=== PATIENT | male | born 1965 | race American Indian/Alaskan Native ===

== ENCOUNTER 2016-07-02 10:22 | Emergency (ER) | payer MEDICAID ==
[2016-07-02] MEDS ORDERED: MOTRIN PO ONE (13:59)
[2016-07-02 14:22] LABS: Bacteria,Urine 1+ /HPF (Negative); Bilirubin,Urine NEG (Negative); Blood,Urine NEG (Negative); Ketones,Urine TR mg/dL (Negative); Leukocyte Esterase,Urine NEG (Negative); Mucus,Urine 2+ /HPF; Nitrite,Urine NEG (Negative)
[2016-07-02 15:41] VITALS: BP 116/81
[2016-07-02] MEDS ORDERED: NORCO 7.5/325 PO ONE (15:45)
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
== END 2016-07-02 16:18 | disposition home or self-care (01) ==
LOC: ED 10:22
DX: M54.6 Pain in thoracic spine (principal); G89.29 Other chronic pain; C72.0 Malignant neoplasm of spinal cord; I25.10 Atherosclerotic heart disease of native coronary artery without angina pectoris; F17.200 Nicotine dependence, unspecified, uncomplicated; I10 Essential (primary) hypertension; Z98.890 Other specified postprocedural states; Z91.018 Allergy to other foods
CPT/HCPCS: 81001; 99283

== ENCOUNTER 2016-07-30 06:40 | Day surgery (SDC) | payer MEDICAID ==
[2016-07-30 07:36] LABS: Basophils % (Auto) 0.6 % (0.0-1.8); Eosinophils % (Auto) 5.7 % (0.0-4.3); Hematocrit 39.8 % (35.5-45.6); Hemoglobin 13.1 gm/dl (11.8-15.2); Mean Corpuscular HGB Conc 33 % (32-34); Mean Corpuscular Hemoglobin 31 pg (28-32); Mean Corpuscular Volume 95 fl (84-94); Platelet Count 210 K/mm3 (140-440); Red Cell Distribution Width 16.3 % (13.2-15.2); White Blood Count 3.3 K/mm3 (4.5-11.0)
[2016-07-30 07:44] LABS: INR 1.03 (0.87-1.13)
[2016-07-30 07:45] LABS: Partial Thromboplastin Time 28.7 Sec. (24.2-36.6)
[2016-07-30] MEDS ORDERED: VERSED IV ONE ×2 (08:20→08:24)
[2016-07-30] MEDS ORDERED: SUBLIMAZE ONE (08:20)
[2016-07-30] MEDS ORDERED: SUBLIMAZE IV ONE (08:24)
[2016-07-30] MEDS ORDERED: BENADRYL ONE (08:57)
[2016-07-30] MEDS ORDERED: BENADRYL IV ONE (09:03)
--- NOTE | 2016-07-30 09:36 | Cat Scan Report ---
CT BIOPSY BONE MARROW HISTORY: Multiple myeloma. DESCRIPTION OF PROCEDURE: Informed consent was obtained. Sterile technique was utilized. Moderate sedation was accomplished with Versed, fentanyl and Benadryl. The patient was sedated for 15 minutes. Intraobserver time was 20 minutes. Independent cardiorespiratory monitoring by RN. Using CT guidance, a 9-gauge introducer needle was advanced into the right posterior iliac bone. 4 bone marrow aspirations were obtained. One 10-gauge core bone biopsy was also obtained. No complications. IMPRESSION: Successful CT-guided bone marrow biopsy.
[2016-07-30 10:10] VITALS: BP 130/87
== END 2016-07-30 10:25 | disposition home or self-care (01) ==
LOC: OPU 06:40 → EDSTATUS 08:30 → OPU 10:25
PROVIDERS: ATTEND Internal Medicine Hematology
DX: C90.00 Multiple myeloma not having achieved remission (principal); D45 Polycythemia vera
CPT/HCPCS: 36415; 38221; 77012; 85007; 85025; 85097; 85610; 85730; 88305; 88311; G0364; J1200; J2250; J3010; 88161; 88313

== ENCOUNTER 2016-10-01 10:15 | Outpatient (CLI) | payer MEDICAID ==
--- NOTE | 2016-10-01 12:19 | XRay Report ---
BILATERAL EYE RADIOGRAPHS FOR FOREIGN BODY INDICATION: Screening for metal prior to MRI. COMPARISON: None similar. FINDINGS: AP, lateral and oblique views demonstrate left parietal closure devices. No other suspicious radiodensity identified. Grossly age-appropriate, intact remainder bones. CONCLUSION: Left parietal closure devices, as described. Please correlate. Thank you for the opportunity to participate in this patient's care.
== END 2016-10-01 10:16 | disposition home or self-care (01) ==
LOC: MRI 10:15
PROVIDERS: ATTEND Internal Medicine Hematology
DX: T15.92XA Foreign body on external eye, part unspecified, left eye, initial encounter (principal); T15.91XA Foreign body on external eye, part unspecified, right eye, initial encounter; M79.605 Pain in left leg; M79.89 Other specified soft tissue disorders; C90.20 Extramedullary plasmacytoma not having achieved remission; C90.00 Multiple myeloma not having achieved remission; D45 Polycythemia vera; X58.XXXA Exposure to other specified factors, initial encounter; Y93.89 Activity, other specified; Y92.89 Other specified places as the place of occurrence of the external cause; Y99.8 Other external cause status

== ENCOUNTER 2016-10-11 07:08 | Inpatient (IN) | payer MEDICAID ==
[~2016-10-11 07:08] MED LIST: ANCEF/STERILE WATER 2 GM/20 ML 2 GM/20 ML SYRINGE IV SCH; FLAGYL 500 MG/100 ML 500 MG/100 ML BAG IV NR; PEPCID PO NR; VERSED IV NR; ceFAZolin 2 GM in NACL 0.9% 100 ML IV ONE
[2016-10-11] MEDS ORDERED: MARCAINE-EPI 0.25%-1:200,000 INFILTRATI ONE ×2 (07:46→13:25)
--- NOTE | 2016-10-11 07:48 | Anesthesia Day of Surgery ---
Anesthesia Day of Surgery - Day of Surgery Patient Examined: Yes Patient H&P Reviewed: Yes Patient is NPO: Yes Beta Blockers: No (no home medications) Cardiac Clearance: Yes
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
[2016-10-11] MEDS ORDERED: SUBLIMAZE ONE (08:01)
[2016-10-11] MEDS ORDERED: DIPRIVAN 10 MG/ML IV ONE (08:02)
[2016-10-11] MEDS ORDERED: ZEMURON IV ONE ×3 (08:03→13:54)
[2016-10-11] MEDS: HEPARIN SUB-Q NR ×2 (08:04→23:49)
[2016-10-11] MEDS ORDERED: XYLOCAINE MPF 2% ONE (08:04)
[2016-10-11] MEDS: NACL 0.9% 1000 ML 1,000 ML IV SCH (08:04)
[2016-10-11] MEDS ORDERED: ZOFRAN IV PRN (09:00)
[2016-10-11] MEDS ORDERED: ROBINUL ONE ×3 (09:44→15:13)
[2016-10-11] MEDS ORDERED: DECADRON ONE (09:47)
[2016-10-11] MEDS ORDERED: ZOFRAN ONE (09:47)
[2016-10-11] MEDS ORDERED: DILAUDID ONE ×2 (09:47→12:03)
[2016-10-11] MEDS ORDERED: ARTIFICIAL TEARS OPHTH OINT ONE (09:48)
[2016-10-11] MEDS ORDERED: DILAUDID IV PRN ×2 (10:00)
[2016-10-11] MEDS ORDERED: BREVIBLOC IV ONE (11:00)
[2016-10-11] MEDS ORDERED: NEO SYNEPHRINE/NS Syringe(OR USE) IV ONE (11:00)
[2016-10-11] MEDS ORDERED: NACL 0.9% 1000 ML 1,000 ML ONE (11:03)
[2016-10-11] MEDS ORDERED: ANCEF ONE ×2 (13:19)
[2016-10-11] MEDS ORDERED: NACL 0.9% IR ONE ×2 (13:25)
--- NOTE | 2016-10-11 14:27 | Admit Criteria Form ---
Admission Criteria Documentation: AMBULATORY SURGERY EXCEPTION CRITERIA Ambulatory Surgery Exception Criteria ( Place 'X' for any and all applicable criteria): Surgery or procedure performed on ambulatory basis may require inpatient stay for[A] ANY ONE of the following(1)(2)(3)(4)(5)(6)(7)(8)(9): [X] I. A preoperative situation, condition, or finding that warrants inpatient stay as indicated by ANY ONE of the following: [] a) Inpatient care needed because of severity of a disease or condition rather than the surgery (eg, severe cardiac or respiratory disease, severe infection) (15) (16 ) (17) (18) [] b) Emergent procedure (eg, angioplasty for acute ischemia)(19) [] c) Complex surgical approach or situation as indicated by ANY ONE of the following(3): [] i) Open approach needed instead of usual endoscopic, transcatheter, or other less invasive procedure [] ii) Difficult approach because of previous operation [] iii) Airway monitoring required after open neck procedures(20)(21) [] iv) Large mass requiring unusually extensive dissection [] v) Additional complicating feature requiring inpatient care (eg, drain management)(22(23): [X] d) Major surgery in a pt with high anesthetic risk as indicated by ANY ONE of the following (2)(3)(5)(7)(8): [X] i) ASA risk class III or higher (severe systemic disease impairing function) [D] [] ii) Advanced age (eg, older than 85 years)(14)(24) [] iii) Symptomatic heart failure(25) [] iv) Symptomatic asthma or COPD(8)(21) [] v) Morbid obesity with hemodynamic or respiratory problems(20)( 21)(26)(27) [] vi) Obstructive sleep apnea(20)(21) [] vii) Former premature infants who are younger than 60 weeks [] viii) High risk for severe postoperative abnormalities (eg, severe postoperative hypocalcemia after parathyroidectomy for severe hyperparathyroidism)(27)( 28) [] ix) Unstable angina(25) [] e) Drug-related risk requiring inpatient stay as indicated by ANY ONE of the following(5)(10)(14)(32)(33) [] i) Procedure requires discontinuing drugs or other therapy (eg , antiarrhythmic medication, antiseizure medication), which necessitates inpatient observation or treatment.(18)(31) [] ii) Major surgery and high risk drug use as indicated by ANY ONE of the following: [] 1) Active abuse of cocaine or similar drug [] 2) Monoamine oxidase inhibitor use [] 3) Other drug identified as posing risk [] f) Inadequate outpatient care situation as indicated by ANY ONE of the following(5)(10)(14)(32)(33) [] i) Patient lives remote from medical facility and procedure has urgent complication potential, and temporary nearby residence cannot be arranged [] ii) Patient will have postprocedure incapacitation and inadequate assistance at home, or alternative level of care cannot be arranged. [] iii) Patient will have long general anesthesia or procedure side effect resolution time, and competent person to stay with patient on first postoperative night at home or alternative level of care cannot be arranged. []iv) Other inadequate outpatient situation that cannot be handled by other means [] II. A perioperative event, condition, or finding that warrants inpatient stay as indicated by ANY ONE of the following (1)(2)(3): [] a) Inadequate physiologic recovery: cardiovascular, respiratory, or hemodynamic status not normal or near preoperative baseline(18) [] b) Hemodynamic instability [] c) Patient not alert with near normal or baseline mental status [] d) Temperature not normal or as expected and not appropriate for outpatient treatment of condition [] e) Ambulatory or appropriate activity level status not yet achieved post procedure [E](34)(35)(36) [] f) Operative site not appropriate (eg, unexpected or excessive drainage or bleeding) [] g) Postoperative effects not resolved or adequately managed (eg, significant pain or vomiting not appropriate for outpatient or next level of care)(10)(12) [] h) Complicating features requiring inpatient care as indicated by ANY ONE of the following(37): [] i) Severe complications of procedure (eg, bowel injury, airway compromise, vascular injury,severe hemorrhage) [] ii) Extensive (eg, dissection far beyond usual scope of procedure ) or prolonged (eg, 120 minutes beyond usual) surgery needed requiring inpatient postoperative care [] iii) Conversion to an open or complex procedure that requires inpatient care (eg, open vs laparoscopic cholecystectomy, abdominal vs vaginal hysterectomy)(38) [] iv) Comorbid condition or test result identified during or post procedure that requires inpatient care (7) [] v) Malignant hyperthermia(30) [] vi) Other complicating feature requiring inpatient care(22)(23) Inpatient stay may be needed until ALL of the following are present (1)(2)(3)(4) (5)(6)(10)(14)(33)(40): []a) Physiologic recovery: cardiovascular, respiratory, and hemodynamic status normal or near preoperative baseline []b) Hemodynamic stability []c) Patient alert, with near normal or baseline mental status []d) Temperature appropriate: patient afebrile or temperature appropriate for outpt treatment of condition []e) Activity level appropriate: ambulatory or appropriate activity level post procedure []f) Operative site appropriate as indicated by ALL of the following: []i) Site dry or with expected drainage []ii) Any blood noted is as expected for procedure. []g) Postoperative effects resolved or managed as indicated by ALL of the following: []i) Pain management appropriate for outpatient (or next level of) care(10) []ii) Minimal nausea and vomiting: if present, successfully treated with oral medication(12) []iii) Headache, dizziness, or drowsiness (if present) are mild. []h) Voiding status acceptable as indicated by ANY ONE of the following: []i) Voiding spontaneously []ii) No voiding but instructions given for follow-up in 6 to 8 hours []iii) Urinary catheter in place, and instructions given for follow-up []i) Complicating features requiring inpatient care manageable at a lower level of care(37) []j) Comorbid conditions manageable at a lower level of care(37) The original [employer] content created by [employer] has been revised. The portions of the content which have been revised are identified through the use of italic text or in bold, and [employer] [employer] has neither reviewed nor approved the modified material. All other unmodified content is copyright [employer]. Please see references footnoted in the original [employer] edition 2016 Admission Criteria Met: Yes
[2016-10-11] MEDS ORDERED: NEOSTIGMINE ONE (15:14)
[2016-10-11] MEDS ORDERED: TORADOL ONE (15:38)
[2016-10-11] MEDS ORDERED: TYLENOL PO PRN (16:01)
--- NOTE | 2016-10-11 16:12 | Post Anesthesia Evaluation ---
- Post Anesthesia Evaluation Patient Participated: Yes Airway Patent: Yes Stable Respiratory Function: Yes Nausea/Vomiting: No Temp > 96.8F: Yes Pain Manageable: Yes Adequeate Hydration: Yes Anesthesia Complications: No Block Receding Appropriately: Not Applicable Patient on Ventilator: No
--- NOTE | 2016-10-11 16:14 | Post Operative Note ---
Date of procedure: 10/11/16 Pre-op diagnosis: rectal ca Post-op diagnosis: same Findings: low rectal tumor Procedure: lap attempted low anterior resection Anesthesia: JONG Surgeon: NING EID Scientific Recruiter: KESHA ZAFAR Estimated blood loss: minimal Pathology: list (rectum) Specimen disposition: to lab Condition: stable Disposition: PACU
[2016-10-11] MEDS: DILAUDID IV PRN ×2 (16:55→17:05)
--- NOTE | 2016-10-11 18:08 | Operative Report ---
PREOPERATIVE DIAGNOSIS: Rectal cancer. POSTOPERATIVE DIAGNOSIS: Rectal cancer. OPERATIVE PROCEDURE: Laparoscopic attempted low anterior resection with total mesorectal excision. SURGEON: Gigi Manzano M.D. SINGLE END SEWER: Arias Ramirez MD. ANESTHESIA: General with 0.25% Marcaine for local. ESTIMATED BLOOD LOSS: 250 mL. SPECIMENS: Rectum with mass. COMPLICATIONS: None. INSTRUMENT COUNT: Correct. INDICATIONS: This is a 51-year-old male who presented with a large rectal mass that was biopsied. Path was consistent with adenocarcinoma. Because of his partial obstruction, he was offered the above-named procedure as a possible treatment modality. Risks and benefits were discussed until all questions were answered. He was subsequently brought to the OR. TECHNIQUE: We reviewed the informed consent. The patient was then placed supine upon the table. After adequate anesthesia was reached, we verified the patient. Bilateral SCDs were placed. He was then prepped and draped in the usual sterile fashion. A 5 mm incision was made at the level of the umbilicus after infiltration of local anesthetic. Veress needle was carefully placed in this position. The abdomen was then insufflated to 15 mmHg, at which time, a 5 mm trocar was placed through the umbilical incision. We introduced the camera and briefly examined the abdomen. There was no injury noted. At this time, under direct vision and after infiltration of local anesthetic we placed a right lower quadrant 5 mm port followed by a right upper quadrant 5 mm port. We began examining the abdomen. There were no lesions noted on the liver. We were clearly able to see Latoya ink throughout the pelvis; however, this was consistent with the colonoscopy report which delineated both proximal and distal in the markings. At this time, we began scoring the peritoneum on both lateral sides. This allowed us to get into the rectal space and a total mesorectal excision was done. We carried our dissection along the sacral promontory. Care was taken to avoid the vascular structures in this location. The superior hemorrhoidal vessels were then taken and we carried our dissection more distally because of the location of the tumor, which appeared to be right below the peritoneal reflection. I decided to extend the umbilical incision and placed a hand port. Infiltration of local anesthetic was then done and we extended the incision and port was placed without difficulty. An additional 5 mm port was placed in the left lower quadrant began dissecting in the peritoneal reflection was removed and dissected free from the rectum. We carried our dissection more distally until we reached the limit of what could be done using this technique. The patient dissection was severely limited to small pelvis with a very large rectal mass intraluminally after approximately 2 hours of dissection, we reached the point where we were no longer making any headway in performing any further dissection. At this time, I decided to convert to open procedure. We removed all ports after removal of insufflation as well as Gelport and extended the incision down to the suprapubic area. Skin incision was made and extended using a 10 blade. Electrocautery was used to dissect through the fascia. A Bookwalter retractor was then placed and body wall blades as well as a bladder blade were placed for optimal exposure. A medium malleable was used to push the bowel back within the abdomen to keep it out the pelvis. Careful dissection then ensued and was severely again limited to the patient's habitus, which was very narrow pelvis with a very large mass. This led to a very slow dissection; however, we were able to get below the mass with a small margin of approximately 2 cm. We dissected free the perirectal fat as well as the mesorectum posterior to the site of transection. An [place] 60 mm stapler was then chosen to perform the resection. Several fires were used to transect it. We completely then transected the bowel at this location. Specimen was handed off the table and sent to pathology for further evaluation. We tested the anastomotic stump secondary to the difficulty of dissection. With insufflation while submerged there was no evidence of leaking. All staple lines were intact and no problems were identified. At this time, a 29 EEA anvil was positioned within the proximal bowel after the staple line was transected. Of note, we have previously transected the proximal bowel to allow manipulation of the distal tumor. Purse-string device was used to secure the anvil in this location and then the stapler was passed per rectum under direct vision. We advanced the trocar so that it sat through the anterior wall of the distal rectum and then the anvil was secured to this location. The stapler was then closed and fired without any difficulty. We clamped the bowel proximally manually and then insufflated while the anastomosis was submerged. We vigorously did this to elucidate any leaking and none was identified at this location. We then evacuated the irrigation and then removed the Bookwalter. The fascia was closed using two looped PDS sutures in a running fashion. Of note, just prior to closure and after the anastomosis was created, the anastomotic rings were sent separately labeled proximal and distal. The specimen was also tagged with a 3-0 suture at the distal margin. The skin was then closed after irrigation of the wound using skin socorro. All port sites were also closed in a similar fashion. The patient tolerated the procedure well. The Zepeda was left in place secondary to manipulation of the bladder. The total time for surgery was approximately greater than 6 hours. JOB# [id number] SUSAN/ISAURA AVELAR
[2016-10-11] MEDS: MORPHINE IV PRN ×2 (19:36→23:50)
[2016-10-11] MEDS: ZOFRAN IV PRN ×2 (19:36→23:50)
[2016-10-11] MEDS: HEPARIN SUB-Q SCH (23:55)
[2016-10-12] MEDS: ZOFRAN IV PRN (04:32)
[2016-10-12] MEDS: MORPHINE IV PRN ×5 (04:32→22:26)
[2016-10-12] MEDS: HEPARIN SUB-Q SCH ×2 (09:28→22:27)
--- NOTE | 2016-10-12 09:53 | Progress Note ---
Assessment and Plan A/P s/p APR (POD 1) 1) Con't clears till he has return of gut function. Con't IV fluids/pain control. Encourage OOB, incentive spirometer. Subjective Date of service: 10/12/16 Narrative: The patient is resting in bed. He shira any N/V. He denies any BM or flatus. He does have moderate incisional tenderness. Objective Vital Signs - 12hr 10/12/16 10/12/16 10/12/16 00:00 05:00 08:00 Temperature 97.1 F L 97.5 F L 97.7 F Pulse Rate [ 67 63 60 Left] Respiratory 16 16 18 Rate Blood Pressure 121/80 108/69 127/78 [Left Arm] O2 Sat by Pulse 99 100 Oximetry - Abdomen soft (soft, non distended, abdominal dressing in place (clean/dry/intact))
[2016-10-12] MEDS: NACL 0.9% 1000 ML 1,000 ML IV SCH (12:50)
[2016-10-13] MEDS: NACL 0.9% 1000 ML 1,000 ML IV SCH ×2 (01:47→14:41)
[2016-10-13] MEDS: ZOFRAN IV PRN ×2 (01:47→23:21)
[2016-10-13] MEDS: MORPHINE IV PRN ×5 (06:05→23:21)
[2016-10-13] MEDS: HEPARIN SUB-Q SCH ×2 (10:13→23:36)
--- NOTE | 2016-10-13 11:13 | Progress Note ---
Assessment and Plan A/P: s/p LAP POD 2 1) The patient is tolerating clears and having flatus but his abdomen has mild distension today. We felecia leave him on clears for now. Con't OOB, pain control. Subjective Date of service: 10/13/16 Narrative: The patient is resting comfortably in bed. He has been OOB. He is tolerating clears. He states that he is passing some flatus but no BM. He denies any N/V. Objective Vital Signs - 12hr 10/13/16 10/13/16 10/13/16 06:00 06:05 07:30 Temperature 98.3 F 98.2 F Pulse Rate [ 84 78 Left] Respiratory 17 16 18 Rate Respiratory Rate [Bilateral Leg] Blood Pressure 149/91 157/94 [Left Arm] O2 Sat by Pulse 98 100 Oximetry 10/13/16 10:00 Temperature Pulse Rate [ Left] Respiratory Rate Respiratory 16 Rate [Bilateral Leg] Blood Pressure [Left Arm] O2 Sat by Pulse Oximetry - Abdomen soft (mild distension, mild incisional tenderness to palpation, incison with socorro intact, hypoactive BS)
[2016-10-13] MEDS: APRESOLINE IV PRN (18:28)
[2016-10-13] MEDS: HABITROL TD SCH (18:30)
[2016-10-13] MEDS: NORVASC PO SCH (18:43)
--- NOTE | 2016-10-13 19:22 | Consultation ---
History of Present Illness - Reason for Consult Consult date: 10/13/16 Requesting physician: NING EID - History of Present Illness 51-year-old male admitted for colon cancer surgery was done, postop day 2, pain is controlled with pain medication. He been consulted for his high blood pressure. He has history of hypertension and was started on blood pressure medication in 2013 that he discontinued. His blood pressure was 175/103. Put him on hydralazine when necessary and amlodipine daily. Past History Past Medical History: CAD, hypertension Past Surgical History: CABG, Other (back surgery) Social history: smoking (half pack per day), alcohol abuse (sixpacks beer Per day), full code. denies: prescription drug abuse, IV drug use Family history: no significant family history Medications and Allergies Allergies Allergy/AdvReac Type Severity Reaction Status Date / Time garlic Allergy Unknown Verified 07/30/16 08:24 Home Medications Medication Instructions Recorded Confirmed Last Taken Type No Known Home Medications [No 10/08/16 10/08/16 Unknown History Reported Home Medications] Active Meds: Active Medications Acetaminophen (Tylenol) 650 mg PO Q4H PRN PRN Reason: Pain MILD(1-3)/Fever >100.5/HOU Amlodipine Besylate (Norvasc) 10 mg PO QDAY [facility] Last Admin: 10/13/16 18:43 Dose: 10 mg Heparin Sodium (Porcine) (Heparin) 5,000 unit SUB-Q Q12HR [facility] Last Admin: 10/13/16 10:13 Dose: 5,000 unit Hydralazine HCl (Apresoline) 10 mg IV Q4H PRN PRN Reason: SBP<160; DBP<100 Last Admin: 10/13/16 18:28 Dose: 10 mg Hydromorphone HCl (Dilaudid) 0.5 mg IV Q10MIN PRN PRN Reason: Pain , Severe (7-10) Stop: 10/14/16 16:21 Last Admin: 10/11/16 17:05 Dose: 0.5 mg Sodium Chloride (Nacl 0.9% 1000 Ml) 1,000 mls @ 75 mls/hr IV DIRECT [facility] Last Admin: 10/13/16 14:41 Dose: 75 mls/hr Morphine Sulfate (Morphine) 4 mg IV Q4H PRN PRN Reason: Pain , Severe (7-10) Last Admin: 10/13/16 18:42 Dose: 4 mg Nicotine (Habitrol) 21 mg TD QDAY [facility] Last Admin: 10/13/16 18:30 Dose: 21 mg Ondansetron HCl (Zofran) 4 mg IV Q4H PRN PRN Reason: N/V unrelieved by Reglan Last Admin: 10/13/16 01:47 Dose: 4 mg Review of Systems Constitutional: no fever, no sweats, no night sweats Ears, nose, mouth and throat: no ear pain, no ear discharge, no tinnitis Cardiovascular: no chest pain, no orthopnea, no palpitations Respiratory: no cough, no cough with sputum, no excessive sputum Gastrointestinal: no vomiting, no diarrhea, no hematemesis, no coffee ground emesis Genitourinary Male: no dysuria, no hematuria, no flank pain, no discharge Rectal: no pain, no incontinence, no bleeding Musculoskeletal: no neck stiffness, no neck pain, no shooting arm pain, no arm numbness/tingling Integumentary: no deferred, no rash, no pruritis, no redness Neurological: no head injury, no transient paralysis, no paralysis, no weakness Psychiatric: no anxiety, no memory loss, no change in sleep habits, no sleep disturbances, no insomnia, no hypersomnia Endocrine: no cold intolerance, no heat intolerance, no polyphagia, no excessive thirst Hematologic/Lymphatic: no easy bruising, no easy bleeding Allergic/Immunologic: no urticaria, no allergic rhinitis, no wheezing Exam - Physical Exam Narrative exam: Not in cardiopulmonary distress. The patient appeared well nourished and normally developed. Vital signs as documented. Head exam is unremarkable. No scleral icterus . Neck is without jugular venous distension, thyromegaly, or carotid bruits. Lungs are clear to auscultation. Cardiac exam reveals regular rate and Rhythm. First and second heart sounds normal. No murmurs, rubs or gallops. Abdominal exam reveals clean dressing, normoactive bowel sounds. Extremities are nonedematous and both femoral and pedal pulses are normal. GREEN FEED ATTENDANT: Alert and oriented 3. No focal weakness. - Constitutional Vitals: Temp Pulse Resp BP Pulse Ox 98.5 F 87 20 175/103 100 10/13/16 17:00 10/13/16 18:43 10/13/16 17:00 10/13/16 18:43 10/13/16 17:00 Assessment and Plan Uncontrolled hypertension - Start on amlodipine and when necessary hydralazine - We will follow blood pressure and adjust as needed Colon cancer, Post operative day 2 - managed per surgery Thank you for the consult, will manage along.
[2016-10-14] MEDS: MORPHINE IV PRN ×5 (06:10→22:11)
--- NOTE | 2016-10-14 10:48 | Progress Note ---
Assessment and Plan - Patient Problems (1) S/P colectomy Current Visit: Yes Status: Acute Plan to address problem: doing well appreciate Hospitalist input for HTN await better bowel function prior to advancing diet Subjective Date of service: 10/14/16 Patient Reports: Positive: no new complaints, feels better, pain is less, flatus , no bowel movement Objective Vital Signs - 12hr 10/14/16 10/14/16 10/14/16 00:00 04:00 08:34 Temperature 98.6 F 98.1 F 98.4 F Pulse Rate [ 99 H 92 H 88 Left] Respiratory 18 18 20 Rate Blood Pressure 142/91 [Left Arm] Blood Pressure 139/86 [Right Arm] O2 Sat by Pulse 97 100 97 Oximetry Vital Signs Temp 98.4 F 10/14/16 08:34 Pulse 88 10/14/16 08:34 Resp 20 10/14/16 08:34 BP 139/86 10/14/16 04:00 Pulse Ox 97 10/14/16 08:34 Intake & Output 10/13/16 10/14/16 10/14/16 18:59 06:59 18:59 Intake Total 1500 680 Output Total 2200 500 Balance 1500 -1520 -500 Intake: IV 1000 NaCl 0.9% 1000 ml 1,000 1000 ml @ 75 mls/hr IV DIRECT [facility] Rx#:[id number] Oral 500 400 Intake, Free Water 280 Output: Urine 2200 500 Indwelling Catheter 2200 500 Other: Total, Intake Amount 500 400 Total, Output Amount 2200 500 Voiding Method Indwelling Catheter Indwelling Catheter # Bowel Movements 0 - General physical appearance well developed, no distress - Abdomen soft, bowel sounds hypoactive, not distended, other (incision clean with minimal serosanguinous drainage from superior aspect)
[2016-10-14] MEDS: NACL 0.9% 1000 ML 1,000 ML IV SCH (11:03)
[2016-10-14] MEDS: NORVASC PO SCH (11:04)
[2016-10-14] MEDS: HEPARIN SUB-Q SCH ×2 (11:04→22:06)
[2016-10-14] MEDS: HABITROL TD SCH (11:04)
--- NOTE | 2016-10-14 11:16 | Progress Note ---
Assessment and Plan Assessment and plan: Hospitalist call center consultant for hypertension: Patient's 51-year-old man with a history of coronary artery disease status post CABG, hypertension, alcohol and tobacco dependency who underwent colectomy for colon cancer. The hospitalist team were consulted for hypertension. BP trend as follows: Vital Signs - 24 hr 10/13/16 10/13/16 10/13/16 15:35 17:00 18:28 Temperature 99.0 F 98.5 F Pulse Rate 87 Pulse Rate [ 85 82 Left] Respiratory 20 20 Rate Blood Pressure 175/103 Blood Pressure 167/100 [Left Arm] Blood Pressure 175/101 [Right Arm] O2 Sat by Pulse 100 Oximetry 10/13/16 10/13/16 10/14/16 18:43 20:00 00:00 Temperature 98.5 F 98.6 F Pulse Rate 87 Pulse Rate [ 103 H 99 H Left] Respiratory 18 18 Rate Blood Pressure 175/103 Blood Pressure 154/95 142/91 [Left Arm] Blood Pressure [Right Arm] O2 Sat by Pulse 97 97 Oximetry 10/14/16 10/14/16 10/14/16 04:00 08:34 11:04 Temperature 98.1 F 98.4 F Pulse Rate 68 Pulse Rate [ 92 H 88 Left] Respiratory 18 20 Rate Blood Pressure 142/78 Blood Pressure [Left Arm] Blood Pressure 139/86 [Right Arm] O2 Sat by Pulse 100 97 Oximetry 10/14/16 11:06 Temperature Pulse Rate Pulse Rate [ Left] Respiratory 20 Rate Blood Pressure Blood Pressure [Left Arm] Blood Pressure [Right Arm] O2 Sat by Pulse Oximetry -Accelerated Hypertension: placed on Norvasc and prn iv hydralazine with good results. However, given patient's history of CAD s/p CABG, bblocker is most important, will adjust and follow along. Eventually, he will need to be on ASA and statin for prevention. History Interval history: Patient seen and examined. F/u bp which has improved. Tolerating liquid diet w/ o worsening pain/n/v Hospitalist Physical - Physical exam Narrative exam: GEN: WDWN, NAD, AWAKE, ALERT, ORIENTATED 3 CVS: RRR, NORMAL S1S2 LUNGS/CHEST: CTA B, NORMAL CHEST EXPANSION B, GOOD AIR ENTRY B ABD: Surgical dressing clean dry and intact pBS, NO REBOUND OR GUARDING EXT/SKIN: NO SIGNIFICANT EDEMA OR RASH MSK: FROM X 4 EXTREMITIES NEURO: CN 2-12 GROSSLY INTACT, NO new FOCAL DEFICITS PSY: CALM - Constitutional Vitals: Temp Pulse Resp BP Pulse Ox 98.4 F 68 20 142/78 97 10/14/16 08:34 10/14/16 11:04 10/14/16 11:06 10/14/16 11:04 10/14/16 08:34 Results - Labs Labs: Laboratory Last Values Blood Type O POSITIVE 10/11/16 08:10 Antibody Screen TNR 10/11/16 08:10 MERLENE Antibody Screen Negative 10/11/16 08:10
[2016-10-14] MEDS: LOPRESSOR PO SCH ×2 (15:03→22:05)
[2016-10-14] MEDS: ZOFRAN IV PRN ×3 (15:04→22:03)
[2016-10-14] MEDS: APRESOLINE IV PRN (22:05)
[2016-10-15] MEDS: ZOFRAN IV PRN ×3 (03:59→22:12)
[2016-10-15] MEDS: MORPHINE IV PRN ×5 (03:59→22:17)
[2016-10-15] MEDS: NACL 0.9% 1000 ML 1,000 ML IV SCH ×2 (04:02→15:37)
--- NOTE | 2016-10-15 09:23 | Progress Note ---
Assessment and Plan Assessment and plan: Hospitalist training consultant for hypertension: Patient's 51-year-old man with a history of coronary artery disease status post CABG, hypertension, alcohol and tobacco dependency who underwent colectomy for colon cancer. The hospitalist team were consulted for hypertension. BP trend as follows: -Accelerated Hypertension: placed on Norvasc and prn iv hydralazine with good results. However, given patient's history of CAD s/p CABG, bblocker is most important, added lopressor. Eventually, he will need to be on ASA and statin for prevention once stable. Since he has n/v and abd pains, use prn iv antihypertensive. We will continue to monitor. -s/p Colectomy per Gen. surgery History Interval history: Patient seen and examined. F/u bp which is labile due to other factors. He has constant abd pains and now n/v. Hospitalist Physical - Physical exam Narrative exam: GEN: WDWN, NAD, AWAKE, ALERT, ORIENTATED 3 CVS: RRR, NORMAL S1S2 LUNGS/CHEST: CTA B, NORMAL CHEST EXPANSION B, GOOD AIR ENTRY B ABD: Surgical dressing clean dry and intact pBS, NO REBOUND OR GUARDING EXT/SKIN: NO SIGNIFICANT EDEMA OR RASH MSK: FROM X 4 EXTREMITIES NEURO: CN 2-12 GROSSLY INTACT, NO new FOCAL DEFICITS PSY: CALM - Constitutional Vitals: Temp Pulse Resp BP Pulse Ox 97.5 F L 108 H 18 151/96 97 10/15/16 08:00 10/15/16 08:00 10/15/16 08:00 10/15/16 08:00 10/15/16 08:00 Results - Labs Labs: Laboratory Last Values Blood Type O POSITIVE 10/11/16 08:10 Antibody Screen TNR 10/11/16 08:10 MERLENE Antibody Screen Negative 10/11/16 08:10
[2016-10-15] MEDS: NORVASC PO SCH (09:54)
[2016-10-15] MEDS: HABITROL TD SCH (09:54)
[2016-10-15] MEDS: HEPARIN SUB-Q SCH ×2 (09:55→22:16)
--- NOTE | 2016-10-15 12:32 | Progress Note ---
Assessment and Plan s/p LAR, nausea and vomiting noted. slightly tachy. Will keep NPO, may have gum and hard candy to promote return of gut function. Increase fluids to 125cc/hr, cbc in am. Encourage ambulation. Subjective Date of service: 10/15/16 Patient Reports: Positive: still having pain, voiding w/o difficulty, bowel movement (samll), nausea, vomiting, afebrile Objective Vital Signs - 12hr 10/15/16 10/15/16 10/15/16 04:00 08:00 09:54 Temperature 98.4 F 97.5 F L Pulse Rate 100 H Pulse Rate [ 105 H 108 H Right Radial] Respiratory 20 18 Rate Blood Pressure 164/96 Blood Pressure 158/98 151/96 [Right Arm] O2 Sat by Pulse 96 97 Oximetry - General physical appearance no distress - Respiratory normal expansion, normal respiratory effort - Abdomen tender (mild generalized), bowel sounds hypoactive, distended, surgical scars ( clean and dry) - Psychiatric oriented to time, oriented to person, oriented to place, speech is normal, memory intact
[2016-10-15] MEDS: APRESOLINE IV PRN ×2 (18:46→22:12)
[2016-10-16] MEDS: MORPHINE IV PRN ×5 (02:45→22:08)
[2016-10-16] MEDS: NACL 0.9% 1000 ML 1,000 ML IV SCH ×2 (08:03→17:13)
[2016-10-16] MEDS: HABITROL TD SCH (10:07)
[2016-10-16] MEDS: NORVASC PO SCH (10:07)
[2016-10-16] MEDS: HEPARIN SUB-Q SCH ×2 (10:08→22:09)
--- NOTE | 2016-10-16 11:41 | Progress Note ---
Assessment and Plan - Patient Problems (1) S/P colectomy Current Visit: Yes Status: Acute Plan to address problem: patient has ileus will check labs continue NPO/IVF Subjective Date of service: 10/16/16 Patient Reports: Positive: feels better, flatus, bowel movement. Negative: nausea, vomiting Objective Vital Signs - 12hr 10/16/16 10/16/16 07:00 10:07 Temperature 98.1 F Pulse Rate 96 H Pulse Rate [ 96 H Right Radial] Respiratory 18 Rate Blood Pressure 147/86 Blood Pressure 147/86 [Right Arm] O2 Sat by Pulse 98 Oximetry Vital Signs Temp 98.1 F 10/16/16 07:00 Pulse 96 H 10/16/16 10:07 Resp 18 10/16/16 07:00 BP 147/86 10/16/16 10:07 Pulse Ox 98 10/16/16 07:00 Intake & Output 10/15/16 10/16/16 10/16/16 18:59 06:59 18:59 Intake Total 1000 1200 Output Total 201 Balance 799 1200 Intake: IV 1000 1000 NaCl 0.9% 1000 ml 1,000 1000 1000 ml @ 75 mls/hr IV DIRECT [facility] Rx#:[id number] Oral 0 200 Output: Urine 201 Indwelling Catheter 200 Void 1 Other: Total, Intake Amount 0 200 Total, Output Amount 200 Voiding Method Urinal Urinal # Voids Indwelling Catheter 2 # Bowel Movements 1 - General physical appearance well developed, no distress - Abdomen soft, not tender, distended, other (moderately distended; hyperactive BS) - Labs CMP and CBC pending
[2016-10-16 12:03] LABS: Basophils % (Auto) 0.3 % (0.0-1.8); Eosinophils % (Auto) 0.6 % (0.0-4.3); Hemoglobin 14.9 gm/dl (11.8-15.2); Mean Corpuscular HGB Conc 33 % (32-34); Mean Corpuscular Hemoglobin 32 pg (28-32); Mean Corpuscular Volume 97 fl (84-94); Platelet Count 255 K/mm3 (140-440); Red Blood Count 4.67 M/mm3 (3.65-5.03); Red Cell Distribution Width 13.4 % (13.2-15.2); White Blood Count 4.6 K/mm3 (4.5-11.0)
[2016-10-16 12:21] LABS: Alanine Aminotransferase 13 units/L (7-56); Albumin 2.8 g/dL (3.9-5); Alkaline Phosphatase 68 units/L (35-129); Anion Gap 15 mmol/L; Blood Urea Nitrogen 7 mg/dL (9-20); Calcium 8.3 mg/dL (8.4-10.2); Carbon Dioxide 28 mmol/L (22-30); Chloride 102.2 mmol/L (98-107); Glucose 93 mg/dL (75-100); Potassium 3.4 mmol/L (3.6-5.0); Sodium 142 mmol/L (137-145); Total Protein 5.5 g/dL (6.3-8.2)
[2016-10-17] MEDS: NACL 0.9% 1000 ML 1,000 ML IV SCH (00:57)
[2016-10-17] MEDS: MORPHINE IV PRN ×3 (09:54→21:57)
[2016-10-17] MEDS: NORVASC PO SCH (09:54)
[2016-10-17] MEDS: HEPARIN SUB-Q SCH ×2 (09:55→21:58)
[2016-10-17] MEDS: HABITROL TD SCH (10:06)
--- NOTE | 2016-10-17 16:08 | Progress Note ---
Assessment and Plan Hospitalist oracle hyperion consultant for hypertension: Patient's 51-year-old man with a history of coronary artery disease status post CABG, hypertension, alcohol and tobacco dependency who underwent colectomy for colon cancer. The hospitalist team were consulted for hypertension. BP trend as follows: -Accelerated Hypertension: Patient is on iv hydralazine on when necessary basis as he is still nothing by mouth. Continue with Lopressor and lisinopril when patient commence his oral intake. We will continue to monitor. - Rectal cancer status post anterior resection get her surgeon is following Subjective Date of service: 10/17/16 Principal diagnosis: hypertension, breast cancer status post anterior resection Interval history: No new complaints. Denies any headache, chest pain or shortness of breath. Objective - Constitutional Vitals: Vital Signs - 12hr 10/17/16 10/17/16 04:20 08:00 Temperature 97.8 F 98.6 F Pulse Rate [ 86 Left] Pulse Rate [ 93 H Right Radial] Respiratory 20 18 Rate Blood Pressure 152/88 148/92 [Right Arm] O2 Sat by Pulse 97 98 Oximetry General appearance: Present: no acute distress, well-nourished - EENT Eyes: PERRL, EOM intact ENT: hearing intact, clear oral mucosa - Neck Neck: supple, normal ROM - Respiratory Respiratory effort: normal Respiratory: bilateral: CTA - Cardiovascular Rhythm: regular Heart Sounds: Present: S1 & S2. Absent: gallop, rub Extremities: pulses intact, No edema, normal color, Full ROM - Gastrointestinal General gastrointestinal: Present: soft, non-tender, non-distended, normal bowel sounds - Genitourinary Male genitourinary: normal - Integumentary Integumentary: clear, warm, dry - Musculoskeletal Musculoskeletal: 1, strength equal bilaterally - Neurologic Neurologic: moves all extremities - Psychiatric Psychiatric: memory intact, appropriate mood/affect, intact judgment & insight - Labs CBC & Chem 7: 10/16/16 11:46 10/16/16 11:42
--- NOTE | 2016-10-17 16:14 | Progress Note ---
Assessment and Plan A/P 1) Overall, the patient is doing well. He is passing gas and denies any abdominal pain or N/V but his abdomen is still distended. We will keep him NPO for now till his distension improves. Subjective Date of service: 10/17/16 Narrative: The patient states that his abdomen is feeling better but feels a little distended. He is passing flatus but no DM. He denies any N/V. Objective Vital Signs - 12hr 10/17/16 10/17/16 04:20 08:00 Temperature 97.8 F 98.6 F Pulse Rate [ 86 Left] Pulse Rate [ 93 H Right Radial] Respiratory 20 18 Rate Blood Pressure 152/88 148/92 [Right Arm] O2 Sat by Pulse 97 98 Oximetry - Abdomen soft (soft, non tender, moderately distended, incisions are clean/dry/intact/ socorro intact) - Labs 10/16/16 11:46 10/16/16 11:42
--- NOTE | 2016-10-17 21:37 | Consultation ---
REASON FOR CONSULT: Blood pressure control in a patient who had partial colectomy, status post CABG with a history of hypertension. SUBJECTIVE: The patient lying quietly in bed in no obvious distress. Denies any headache, chest pain, no shortness of breath. OBJECTIVE: GENERAL: The patient lying quietly in bed in no obvious distress. VITAL SIGNS: Blood pressure was 148/89, pulse was 87, respiration was 20, temperature was 98.5. HEENT: Normocephalic, atraumatic. NECK: Supple. No thyromegaly. No bruits. HEART: Regular rate and rhythm. S1, S2. No rubs, murmurs, or gallop. LUNGS: Clear to auscultation bilaterally. No wheezing, rales or rhonchi. ABDOMEN: Soft, nontender. Bowel sounds are present. EXTREMITIES: No edema, no cyanosis or clubbing. ASSESSMENT AND PLAN: 1. Hypertension. The patient currently on n.p.o. We will continue with hydralazine IV. When the patient commences oral intake, we will switch to lisinopril and Lopressor given history of coronary artery disease. 2. Rectal cancer status post anterior resection. The patient is stable. Surgeon is following on the patient. JOB# [id number] OO/NTS
[2016-10-18] MEDS: MORPHINE IV PRN ×5 (02:24→23:30)
[2016-10-18] MEDS: NACL 0.9% 1000 ML 1,000 ML IV SCH (06:23)
[2016-10-18] MEDS: HABITROL TD SCH (09:29)
[2016-10-18] MEDS: ZOFRAN IV PRN ×2 (09:29→14:01)
[2016-10-18] MEDS: HEPARIN SUB-Q SCH ×2 (09:30→21:27)
[2016-10-18] MEDS: NORVASC PO SCH (09:30)
--- NOTE | 2016-10-18 12:26 | Progress Note ---
Assessment and Plan A/P: 1) The patient's abdominal distension is much imroved. We will advance his diet to clear liquids. Con't to encourage walking, OOB. Subjective Date of service: 10/18/16 Narrative: The patient denies any abdominal pain. He states that his abdominal distension is much improved. He is having BMs/flatus. He denies any N/V. Objective Vital Signs - 12hr 10/18/16 07:25 Temperature 97.9 F Pulse Rate [ 84 Right Radial] Respiratory 20 Rate Blood Pressure 139/85 [Right Arm] - General physical appearance no distress - Abdomen soft (non tender, abdominal distension is much improved, hypoactive BS) - Labs 10/16/16 11:46 10/16/16 11:42
[2016-10-19] MEDS: MORPHINE IV PRN ×4 (05:19→20:27)
[2016-10-19] MEDS: NACL 0.9% 1000 ML 1,000 ML IV SCH ×2 (07:26→19:12)
[2016-10-19] MEDS: HABITROL TD SCH (10:08)
[2016-10-19] MEDS: NORVASC PO SCH (10:08)
[2016-10-19] MEDS: HEPARIN SUB-Q SCH ×2 (10:10→21:29)
--- NOTE | 2016-10-19 15:34 | Progress Note ---
Assessment and Plan Status post laparoscopic-assisted low anterior resection. Patient still has mild ileus. Currently tolerating clear liquid diet and having bowel movements as well as passing flatus. We'll await improvement in his GI status and distention prior to advancing his diet. Encourage ambulation and incentive spirometer use. Subjective Date of service: 10/19/16 Patient Reports: Positive: no new complaints, tolerating liquids well, bowel movement, afebrile, other (patient was to go home. Otherwise he denies any significant pain. States he is not walking.). Negative: nausea, vomiting Objective Vital Signs - 12hr 10/19/16 10/19/16 08:29 10:08 Temperature 98.0 F Pulse Rate 74 Pulse Rate [ 74 Right Radial] Respiratory 18 Rate Blood Pressure 121/78 Blood Pressure 121/78 [Left Arm] - General physical appearance no distress - Respiratory normal respiratory effort - Abdomen not tender, distended (mildly), wound (clean dry and intact), surgical scars ( [place] in place) - Psychiatric oriented to time, oriented to person, oriented to place, speech is normal, memory intact - Labs 10/16/16 11:46 10/16/16 11:42
[2016-10-20] MEDS: MORPHINE IV PRN ×5 (01:36→20:37)
[2016-10-20] MEDS: NACL 0.9% 1000 ML 1,000 ML IV SCH ×2 (08:16→18:38)
[2016-10-20] MEDS: HABITROL TD SCH (10:28)
[2016-10-20] MEDS: NORVASC PO SCH (11:20)
[2016-10-20] MEDS: HEPARIN SUB-Q SCH ×2 (11:20→22:14)
--- NOTE | 2016-10-20 14:19 | Progress Note ---
Assessment and Plan Will await improved GI function before advancing diet Continue IVF and encouraged pulm toilet and ambulation Subjective Date of service: 10/20/16 Patient Reports: Positive: nausea Objective Vital Signs - 12hr 10/20/16 10/20/16 10/20/16 07:20 09:04 11:20 Temperature 98.9 F Pulse Rate 78 Pulse Rate [ 78 Right Radial] Respiratory 20 Rate Blood Pressure 124/78 Blood Pressure 124/78 [Right Arm] O2 Sat by Pulse 96 97 Oximetry - General physical appearance well developed - Abdomen soft, bowel sounds hypoactive, distended, other (incisions healing without signs of infection) - Labs 10/16/16 11:46 10/16/16 11:42
[2016-10-21] MEDS: MORPHINE IV PRN ×4 (02:04→19:06)
[2016-10-21] MEDS: NACL 0.9% 1000 ML 1,000 ML IV SCH (05:12)
[2016-10-21] MEDS: NORVASC PO SCH (09:02)
[2016-10-21] MEDS: HABITROL TD SCH (09:02)
[2016-10-21] MEDS: HEPARIN SUB-Q SCH ×2 (10:32→22:59)
--- NOTE | 2016-10-21 17:09 | Progress Note ---
Assessment and Plan Will advance to a full liquid diet Subjective Date of service: 10/21/16 Patient Reports: Positive: no new complaints, feels better, flatus Objective Vital Signs - 12hr 10/21/16 10/21/16 07:48 09:02 Temperature 97.3 F L Pulse Rate 79 Pulse Rate [ 79 Right Radial] Respiratory 18 Rate Blood Pressure 126/77 Blood Pressure 126/77 [Right Arm] O2 Sat by Pulse 97 Oximetry - Abdomen soft, not tender, bowel sounds normal, other (incisions healing well) - Labs 10/16/16 11:46 10/16/16 11:42
[2016-10-22] MEDS: MORPHINE IV PRN ×3 (00:09→11:15)
[2016-10-22] MEDS: NACL 0.9% 1000 ML 1,000 ML IV SCH ×2 (00:10→09:56)
[2016-10-22] MEDS: HABITROL TD SCH (11:14)
[2016-10-22] MEDS: NORVASC PO SCH (11:14)
--- NOTE | 2016-10-22 11:17 | Discharge Summary ---
Providers - Providers Date of Admission: 10/11/16 07:08 Date of discharge: 10/22/16 Attending physician: NING EID 10/13/16 18:00 Consult to Physician [CONS] Routine Consulting Provider: NICOLE PATEL Reason For Exam: Medical Management HTN Place consult to:: Notified:: YES Phone number called:: [phone] Was contact made?: Yes If yes, spoke with:: Time called:: 18:01 Primary care physician: [employer] Hospitalization Reason for admission: post op Hospital course: prolonged ileus that resolved, otherwise, unremarkable. Disposition: DISCHARGED TO HOME OR SELFCARE Core Measure Documentation - Palliative Care Palliative Care/ Comfort Measures: Not Applicable - Core Measures Any of the following diagnoses?: none Exam - Constitutional Vitals: Temp Pulse Resp BP Pulse Ox 97.7 F 72 16 117/73 97 10/22/16 08:00 10/22/16 08:00 10/22/16 08:00 10/22/16 08:00 10/22/16 08:00 General appearance: Present: no acute distress - Respiratory Respiratory effort: normal - Cardiovascular Rhythm: regular - Abdominal General gastrointestinal: Present: soft, non-tender - Psychiatric Psychiatric: appropriate mood/affect, intact judgment & insight Plan Diet: regular Wound: keep clean and dry Follow up with: PRIMARY CARE, [Primary Care Provider] - 7 Days NING EID MD [Staff Physician] - 7 Days Prescriptions: oxyCODONE /ACETAMINOPHEN [Percocet 5/325] 1 tab PO Q6HR PRN #30 tablet PRN Reason: Pain
--- NOTE | 2016-10-22 12:03 | Query- Nutrition ---
Dealinette Acevedo Wise Date: 10/22/2016 Coal Hauler/CDS: George Weber Phone#:____[phone] Exercise your independent professional judgment when responding to query. Questions asked do not imply a particular answer is desired or expected. We greatly appreciate your clarification on this issue. Clinical Documentation States: 51 year old male was admitted on 10/11/16. The progress note (10/15/16) states " Patient's 51-year-old man with a history of coronary artery disease status post CABG, hypertension, alcohol and tobacco dependency who underwent colectomy for colon cancer. The hospitalist team were consulted for hypertension. BP trend as follows: -Accelerated Hypertension: placed on Norvasc and prn iv hydralazine with good results. However, given patient's history of CAD s/p CABG, bblocker is most important, added lopressor. Eventually, he will need to be on ASA and statin for prevention once stable. Since he has n/v and abd pains, use prn iv antihypertensive. We will continue to monitor. -s/p Colectomy per Gen. surgery " Clinical Findings Show: BMI: 23.3 Albumin: 2.8 Please select the most appropriate option 3 [] Mild Malnutrition [] Mild - Moderate Malnutrition [x] Moderate - Severe Malnutrition [] Severe Malnutrition Serum Albumin 2.8 to 3.4 g/dl or Pre-albumin 5 to 17 mg/dl1,2 Inadequate nutritional intake1,2,3,4 NPO > 5 days Weight loss: 5% in 1 month or 7.5% in 3 months or 10% in 6 months1, 3,4 BMI 16 to 18.4 or Weight <90% of ideal body weight1,2,3,4 Serum Albumin < 2.8 g/ dl1,2 Lymphocytes < 1500/ L2 Inadequate nutritional intake3, high stress e.g. major trauma, sepsis,pancreatitis, manning etc. Decubitus ulcers1,2, , skin breakdown2, easy hair pluckability2 Weight <80% standard for height2 Triceps skin fold <3 mm2 Mid-arm muscle circumference <15 cm2 Creatinine-height index <60% standard2 [ ] Cachexia [ ] Emaciated w/Malnutrition [ ] Other: [ ] Unable to determine [ ] Comment/Explanation: Present on Admission: [ x] Yes (Y) [ ] Clinically undeterminable (W) [ ] No (N) Please also document response in your Progress Notes and/or Discharge Summary and indicate if the condition was present on admission. MTDD
[2016-10-22 17:03] VITALS: BP 126/84
== END 2016-10-22 17:57 | disposition home or self-care (01) | DRG 332 ==
LOC: 3A 07:08 → 2B-SURG 16:54
PROVIDERS: ADMIT Surgery; ATTEND Surgery
PROC: 0DBP4ZZ Excision of Rectum, Percutaneous Endoscopic Approach (ICD-10-PCS; principal; 2016-10-11)
DX: C20 Malignant neoplasm of rectum (principal); E43 Unspecified severe protein-calorie malnutrition; I10 Essential (primary) hypertension; F17.210 Nicotine dependence, cigarettes, uncomplicated; I25.10 Atherosclerotic heart disease of native coronary artery without angina pectoris; K56.7 Ileus, unspecified; C90.00 Multiple myeloma not having achieved remission; K62.5 Hemorrhage of anus and rectum; Z91.018 Allergy to other foods; Z95.5 Presence of coronary angioplasty implant and graft; Z95.1 Presence of aortocoronary bypass graft; Z68.23 Body mass index [BMI] 23.0-23.9, adult
CPT/HCPCS: 36415; 80053; 85025; 86850; 86900; 86901; 88304; 88309; 88342; A4217; J0360; J0690; J1100; J1170; J1644; J1885; J2250; J2270; J2370; J2405; J2704; J2710; J3010; J7030

== ENCOUNTER 2017-05-25 22:59 | Emergency (ER) | payer MEDICAID ==
[2017-05-25 23:52] LABS: Eosinophils # (Auto) 0.1 K/mm3 (0.0-0.4); Eosinophils % (Auto) 1.5 % (0.0-4.3); Hematocrit 38.5 % (35.5-45.6); Hemoglobin 13.2 gm/dl (11.8-15.2); Lymphocytes # (Auto) 1.5 K/mm3 (1.2-5.4); Lymphocytes % (Auto) 31.4 % (13.4-35.0); Mean Corpuscular HGB Conc 34 % (32-34); Mean Corpuscular Hemoglobin 34 pg (28-32); Mean Corpuscular Volume 98 fl (84-94); Monocytes # (Auto) 0.4 K/mm3 (0.0-0.8); Monocytes % (Auto) 7.3 % (0.0-7.3); Platelet Count 166 K/mm3 (140-440); Red Blood Count 3.92 M/mm3 (3.65-5.03)
[2017-05-26 00:08] LABS: Alanine Aminotransferase 32 units/L (7-56); Albumin 3.9 g/dL (3.9-5); BUN/Creatinine Ratio 12; Blood Urea Nitrogen 7 mg/dL (9-20); Calcium 8.1 mg/dL (8.4-10.2); Hemolysis Index 10
[2017-05-26 02:06] LABS: Bilirubin,Urine NEG (Negative); Blood,Urine SM (Negative); Color,Urine Yellow (Yellow); Mucus,Urine FEW /HPF; Nitrite,Urine NEG (Negative); Protein,Urine <15 mg/dL mg/dL (Negative); Urobilinogen,Urine < 2.0 mg/dL (<2.0)
[2017-05-26] MEDS ORDERED: NACL 0.9% 1000 ML 1,000 ML IV ONE (10:17)
[2017-05-26] MEDS ORDERED: ZOFRAN IV ONE (10:17)
[2017-05-26] MEDS ORDERED: MORPHINE IV ONE (10:17)
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
--- NOTE | 2017-05-26 12:01 | Cat Scan Report ---
CT scan of the abdomen and pelvis with IV contrast: Compared to 04/29/16. History: Abdominal pain, history of colon cancer. Multiple myeloma. Findings: Normal lung bases. No pleural pericardial effusion. Normal liver spleen pancreas and gallbladder. Normal adrenals kidneys and bladder. No free intraperitoneal fluid or air. No evidence of adenopathy. Calcification in the pararectal region probably due to previous infection or surgery. Minimal stranding in the region. Normal appendix. Stool in colon. In no bowel distention. Impression: Perirectal calcification and stranding. Clinical correlation advised. No bowel distention. No adenopathy. Additional findings as detailed above. Incidentally noted fracture of the body of L1 vertebra. Multiple osseous lesions in skeleton without significant interval change.
[2017-05-26 12:56] VITALS: BP 108/79
== END 2017-05-26 12:55 | disposition home or self-care (01) ==
LOC: ED 22:59
DX: R10.84 Generalized abdominal pain (principal); I10 Essential (primary) hypertension; I25.2 Old myocardial infarction; F17.200 Nicotine dependence, unspecified, uncomplicated; Z91.018 Allergy to other foods
CPT/HCPCS: 36415; 74177; 80053; 81001; 85025; 96361; 96374; 96375; 99284; J2270; J2405; J7030; Q9967

== ENCOUNTER 2017-07-02 08:05 | Outpatient (CLI) | payer MEDICAID | END 2017-07-02 08:06 | disposition home or self-care (01) | LOC: VAS 08:05 | PROVIDERS: ATTEND Internal Medicine Hematology | DX: M79.661 Pain in right lower leg (principal); M79.662 Pain in left lower leg; M79.89 Other specified soft tissue disorders; C18.9 Malignant neoplasm of colon, unspecified; C90.00 Multiple myeloma not having achieved remission; C90.20 Extramedullary plasmacytoma not having achieved remission; D45 Polycythemia vera | CPT/HCPCS: 93970 ==

== ENCOUNTER 2017-08-13 12:10 | Outpatient (CLI) | payer MEDICAID ==
--- NOTE | 2017-08-14 16:06 | Cat Scan Report ---
FINAL REPORT EXAM: CT THORACIC SPINE W CON HISTORY: BACK PAIN/MULTIPLE MYELOMA/COLON CANCER TECHNIQUE: Standard CT thoracic spine obtained at 1.25 millimeter axial increments. Coronal and sagittal reconstruction was also performed. PRIORS: CT chest 06/05/2017 FINDINGS: Large lytic focus in the T6 vertebral body is stable. It has a fairly well-defined sclerotic border currently. Additional loss of vertebral body height is seen at this level. It also extends into the proximal right 6th rib and the posterior elements of the T6 vertebral body. Overall, the appearance is stable. There are bilateral pedicle screws and stabilizing bars from T4 through T8 again noted around the T6 level. There are other small focal rounded lucencies scattered throughout other vertebral levels in the thoracic and lumbar spine which appear stable. These have sclerotic borders. A mild superior endplate compression of L1 is stable. There is no evidence for new acute fracture. There is no evidence for paravertebral soft tissue swelling. Alignment is unchanged. IMPRESSION: Stable CT of the thoracic spine. No evidence for new interval compression deformities.
--- NOTE | 2017-08-14 16:26 | Cat Scan Report ---
FINAL REPORT EXAM: CT LUMBAR SPINE W CON HISTORY: BACK PAIN/MULTIPLE MYELOMA/COLON CANCER TECHNIQUE: Spiral high-resolution unenhanced 1.25 millimeter axial images were obtained through the lumbar spine. Sagittal and coronal plane are reconstructions were performed. PRIORS: CT abdomen 06/05/2017 FINDINGS: Counting reference: Lumbosacral junction. For the purposes of this report, L4-L5 is considered the level of the iliac crest. Bone marrow/ Fracture: No evidence for new acute fracture is seen. The mild superior endplate compression and vertical linear fracture through L1 vertebral body is stable. Numerous rounded lytic foci with sclerotic borders are noted throughout multiple vertebral levels in the visualized thoracolumbar spine and sacrum. These appear stable and are likely treated metastases or multiple myeloma. Alignment: Alignment is anatomic. T12-L1: Canal and foramina are patent. L1-L2: Canal and foramina are patent. L2-L3: Canal and foramina are patent. L3-L4: Canal and foramina are patent. L4-L5: Canal and foramina are patent. L5-S1: Canal and foramina are patent. Paraspinal soft tissues: The paraspinal soft tissues show no evidence for paravertebral hematoma or soft tissue mass. Sacrum and iliac wings: Visualized portions of the sacrum and iliac wings appear intact without fracture. The presacral soft tissues are normal in appearance. IMPRESSION: 1. No evidence of acute fracture. 2. Stable exam. No change in the L1 compression deformity and multiple lytic abnormality seen throughout.
== END 2017-08-13 12:11 | disposition home or self-care (01) ==
LOC: CT 12:10
PROVIDERS: ATTEND Internal Medicine Hematology
DX: M48.56XA Collapsed vertebra, not elsewhere classified, lumbar region, initial encounter for fracture (principal); C18.9 Malignant neoplasm of colon, unspecified; C90.00 Multiple myeloma not having achieved remission; C90.20 Extramedullary plasmacytoma not having achieved remission; D45 Polycythemia vera
CPT/HCPCS: 72129; 72132; Q9967

== ENCOUNTER 2017-08-30 06:00 | Outpatient (CLI) | payer MEDICAID ==
[2017-08-30] MEDS ORDERED: FLUSH HEPARIN IV NR (09:01)
--- NOTE | 2017-08-30 14:48 | Cat Scan Report ---
CT CHEST, ABDOMEN AND PELVIS WITH CONTRAST INDICATION: Multiple myeloma. Malignant neoplasm of colon. COMPARISON: 06/05/2017. FINDINGS: Chest, abdomen and pelvis CT performed following oral contrast and intravenous administration of 100 cc of Omnipaque 300. CHEST: Stable heart size. No effusions or new significant adenopathy. Stable 1.6 x 1 cm precarinal lymph node, axial image 46, series 2. A subcarinal lymph node may be slightly smaller at approximately 1 cm, axial image 54. Patent central airway. No aortic aneurysm or dissection. Though not performed as a pulmonary CTA protocol, imaged pulmonary artery and central branches appear normal opacified. Normal imaged thyroid. Mild right middle lobe scarring again noted. No focal suspicious lung mass. Right upper anterior chest port tip extending to the right atrium again noted with some streak artifact. Mild nonspecific distal esophageal wall prominence/thickening, not excluded for gastroesophageal reflux and/or hiatal hernia, amongst others. ABDOMEN: A subtle indeterminate 6-7 mm left hepatic dome hypodensity possible, axial image 145, series 2. Otherwise unremarkable liver, spleen, gallbladder, pancreas, adrenals, aorta, IVC and kidneys. Slight bilateral perinephric stranding/fluid again noted. No ascites or size significant adenopathy. Opacified GI tract nonobstructive. Normal appendix. PELVIS: Rectosigmoid contrast now noted with stable distal rectal postsurgical changes, though with nonspecific right posterolateral wall thickening as on axial series 2, images 269-282, not excluded for tumor recurrence at the anastomosis. Suboptimally distended urinary bladder with diffuse exaggerated wall thickness. Grossly unremarkable seminal vesicles and prostate. Slight presacral fat stranding. No free fluid or significant adenopathy. Stable bones with numerous bony lucent/lytic well demarcated lesions involving the pelvis, multiple spinal levels and ribs. The largest of these approximately 3 cm at likely S2, sagittal image 94. Mild superior end plate depressions of L1 and L2 again noted with approximately 7 mm L1 superior endplate Schmorl's node. Stable sternotomy wires. Approximately 1.7 cm T6 lesion stabilized by posterior pedicle rods and bilateral screws at 2 adjacent levels on either side again noted as also bone grafting and posterior decompression. Slight T3 superior endplate depression is stable. CONCLUSION: 1. Rectosigmoid postsurgical changes again noted with nonspecific wall thickening difficult to entirely exclude for tumor recurrence at this time. A subcentimeter hepatic focus also remains indeterminate for metastases at this time. 2. No acute chest CT abnormality. 3. Stable innumerable geographic bony lytic lesions. 4. Various other findings, including iatrogenic changes, as above. Thank you for the opportunity to participate in this patient's care.
== END 2017-08-30 06:01 | disposition home or self-care (01) ==
LOC: CT 06:00
PROVIDERS: ATTEND Internal Medicine Hematology
DX: C18.9 Malignant neoplasm of colon, unspecified (principal); C90.20 Extramedullary plasmacytoma not having achieved remission; C90.00 Multiple myeloma not having achieved remission; D45 Polycythemia vera; N32.89 Other specified disorders of bladder; J98.4 Other disorders of lung; M51.46 Schmorl's nodes, lumbar region; Z98.890 Other specified postprocedural states
CPT/HCPCS: 71260; 74177; J1642; Q9967

== ENCOUNTER 2018-02-24 01:31 | Inpatient (IN) | payer MEDICAID ==
[2018-02-24 02:15] LABS: Basophils % (Auto) 0.5 % (0.0-1.8); Eosinophils # (Auto) 0.1 K/mm3 (0.0-0.4); Eosinophils % (Auto) 1.9 % (0.0-4.3); Hematocrit 33.9 % (35.5-45.6); Hemoglobin 11.5 gm/dl (11.8-15.2); Lymphocytes # (Auto) 1.3 K/mm3 (1.2-5.4); Lymphocytes % (Auto) 33.9 % (13.4-35.0); Mean Corpuscular HGB Conc 34 % (32-34); Mean Corpuscular Hemoglobin 33 pg (28-32); Mean Corpuscular Volume 98 fl (84-94); Monocytes # (Auto) 0.2 K/mm3 (0.0-0.8); Monocytes % (Auto) 5.6 % (0.0-7.3); Platelet Count 245 K/mm3 (140-440); Red Blood Count 3.47 M/mm3 (3.65-5.03); Red Cell Distribution Width 17.5 % (13.2-15.2)
[2018-02-24 02:39] LABS: Alanine Aminotransferase 87 units/L (7-56); Albumin 3.2 g/dL (3.9-5); BUN/Creatinine Ratio 10; Blood Urea Nitrogen 7 mg/dL (9-20); Calcium 8.2 mg/dL (8.4-10.2); Hemolysis Index 12
[2018-02-24 03:18] LABS: Bacteria,Urine 4+ /HPF (Negative); Bilirubin,Urine NEG (Negative); Blood,Urine MOD (Negative); Color,Urine Yellow (Yellow)
[2018-02-24 03:23] LABS: WBC,Urine > 182.0 /HPF (0.0-6.0)
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
[2018-02-24] MEDS ORDERED: NACL 0.9% 1000 ML 1,000 ML IV ONE (06:20)
[2018-02-24] MEDS ORDERED: ROCEPHIN/NS 1 GM/50 ML 1 GM/50 ML BAG IV ONE ×2 (06:20→10:00)
[2018-02-24] MEDS ORDERED: ZOFRAN IV ONE (06:42)
[2018-02-24] MEDS ORDERED: MORPHINE IV ONE (06:42)
--- NOTE | 2018-02-24 07:50 | Cat Scan Report ---
CT ABDOMEN PELVIS WITHOUT CONTRAST: HISTORY: abdominal pain. COMPARISON: CT abdomen pelvis with contrast dated 11/12/17. TECHNIQUE: Helical CT in 1.25mm intervals without IV contrast. Sagittal and coronal reconstructions. FINDINGS: Lung bases: Well aerated. Minor scarring in the right middle lobe. No nodule, infiltrate or effusion. Normal heart size. Liver: There is diffuse decreased attenuation throughout the liver suggesting fatty change or edema. No obvious liver mass on noncontrast CT. Biliary system: The gallbladder is borderline dilated with a few tiny gallstones. No wall thickening or surrounding fluid. The common bile duct is normal caliber. Pancreas: Normal. Spleen: Normal. Kidneys/ureters/bladder: The kidneys and ureters are within normal limits. There is mild distention of the bladder with mild bladder wall thickening. A cystitis could be considered. Adrenal glands: Normal. Aorta: Normal. Intestines: Left lower quadrant colostomy is unchanged. No oral contrast was administered but there is no obvious obstruction, infection or new mass. The rectum has been surgically removed with scarring in the presacral space. Appendix: Not confidently identified. Pelvic viscera: Normal. Ascites: None. Adenopathy: None. Musculoskeletal: Numerous tiny well-defined lytic lesions and scattered tiny blastic lesions are unchanged since the previous study. The etiology of this is unclear. This could represent metastatic lesions or previously treated lesions, correlate with history. No new bony lesion or fracture. IMPRESSION: Surgical changes as described. Cystitis could be considered. Diffuse decreased attenuation of the liver consistent with fatty change or edema. No liver mass is detected. Borderline dilated gallbladder and tiny gallstones. Correlate for biliary symptoms. Numerous tiny bony lesions as described, stable.
[2018-02-24] MEDS ORDERED: LEVAQUIN 750MG/150ML 750 MG/150 ML BAG IV ONE ×3 (08:45→12:31)
--- NOTE | 2018-02-24 09:10 | History and Physical Report ---
History of Present Illness Date of examination: 02/24/18 Date of admission: 02/24/18 Chief complaint: abd pain History of present illness: This is a 52-year-old male with history of colon CA with recent Lap APR on s/p resection with colostomy (discharge 10/31/17 after ileus) requiring TPN, urinary retention, CAD status post CABG, multiple myeloma, tobacco dependency, hypertension and bilateral PE on eliquis who presents with complaints of lower abdominal pain. The patient reports suprapubic tenderness as well as diffuse tenderness throughout abdomen. Patient denies any chest pain or shortness of breath. The patient had a recent hospitalization in November of this year with Escherichia coli UTI and urinary retention requiring Zepeda catheterization. The patient reportedly was to follow-up with Dr. Sanders for office urodynamics for further evaluation. Past History Past Medical History: CAD, hypertension, other (colon cancer, multiple myeloma, bilateral PE) Past Surgical History: CABG, bowel surgery (Lap APR on 10/17/17 s/p resection with colostomy), Other Social history: smoking Family history: no significant family history Medications and Allergies Allergies Allergy/AdvReac Type Severity Reaction Status Date / Time garlic Allergy Swelling Verified 06/04/17 01:03 Home Medications Medication Instructions Recorded Confirmed Last Taken Type Apixaban [Eliquis] 5 mg PO Q12HR tablet 06/08/17 11/11/17 11/11/17 Rx Acetaminophen [Acetaminophen TAB] 650 mg PO Q4H PRN #30 tablet 11/19/17 Unknown Rx Magnesium Oxide 400 mg PO BIDWM #60 tablet 11/19/17 Unknown Rx Potassium Chloride [K-Dur] 20 meq PO BID #60 tab 11/19/17 Unknown Rx levoFLOXacin [Levaquin TAB] 750 mg PO DAILY #2 tablet 11/19/17 Unknown Rx Active Meds: Active Medications Levofloxacin/Dextrose (Levaquin 750mg/150ml) 750 mg in 150 mls @ 100 mls/hr IV ONCE ONE; Protocol Stop: 02/24/18 10:14 Review of Systems All systems: negative Exam - Constitutional Vitals: Temp Pulse Resp BP Pulse Ox 97.8 F 88 18 96/59 97 02/24/18 01:42 02/24/18 05:15 02/24/18 05:15 02/24/18 05:15 02/24/18 05:15 General appearance: Present: no acute distress, well-nourished - EENT Eyes: Present: PERRL ENT: hearing intact, clear oral mucosa - Neck Neck: Present: supple, normal ROM - Respiratory Respiratory effort: normal Respiratory: bilateral: CTA - Cardiovascular Heart Sounds: Present: S1 & S2. Absent: rub, click - Extremities Extremities: pulses symmetrical, No edema Peripheral Pulses: within normal limits - Abdominal General gastrointestinal: Present: soft, tender, non-distended, normal bowel sounds Localized gastrointestinal: tender: diffuse, suprapubic (mild) Male genitourinary: Present: normal - Integumentary Integumentary: Present: clear, warm, dry - Musculoskeletal Musculoskeletal: gait normal, strength equal bilaterally - Psychiatric Psychiatric: appropriate mood/affect, intact judgment & insight - Neurologic Neurologic: CNII-XII intact, moves all extremities Results - Labs CBC & Chem 7: 02/24/18 01:51 02/24/18 01:51 Labs: Laboratory Last Values WBC 3.7 K/mm3 (4.5-11.0) L 02/24/18 01:51 RBC 3.47 M/mm3 (3.65-5.03) L 02/24/18 01:51 Hgb 11.5 gm/dl (11.8-15.2) L 02/24/18 01:51 Hct 33.9 % (35.5-45.6) L 02/24/18 01:51 MCV 98 fl (84-94) H 02/24/18 01:51 MCH 33 pg (28-32) H 02/24/18 01:51 MCHC 34 % (32-34) 02/24/18 01:51 RDW 17.5 % (13.2-15.2) H 02/24/18 01:51 Plt Count 245 K/mm3 (140-440) 02/24/18 01:51 Lymph % (Auto) 33.9 % (13.4-35.0) 02/24/18 01:51 [place] % (Auto) 5.6 % (0.0-7.3) 02/24/18 01:51 Eos % (Auto) 1.9 % (0.0-4.3) 02/24/18 01:51 Baso % (Auto) 0.5 % (0.0-1.8) 02/24/18 01:51 Lymph # 1.3 K/mm3 (1.2-5.4) 02/24/18 01:51 [place] # 0.2 K/mm3 (0.0-0.8) 02/24/18 01:51 Eos # 0.1 K/mm3 (0.0-0.4) 02/24/18 01:51 Baso # 0.0 K/mm3 (0.0-0.1) 02/24/18 01:51 Seg Neutrophils % 58.1 % (40.0-70.0) 02/24/18 01:51 Seg Neutrophils # 2.2 K/mm3 (1.8-7.7) 02/24/18 01:51 Sodium 137 mmol/L (137-145) 02/24/18 01:51 Potassium 3.4 mmol/L (3.6-5.0) L 02/24/18 01:51 Chloride 98.9 mmol/L (98-107) 02/24/18 01:51 Carbon Dioxide 25 mmol/L (22-30) 02/24/18 01:51 Anion Gap 17 mmol/L 02/24/18 01:51 BUN 7 mg/dL (9-20) L 02/24/18 01:51 Creatinine 0.7 mg/dL (0.8-1.5) L 02/24/18 01:51 Estimated GFR > 60 ml/min 02/24/18 01:51 BUN/Creatinine Ratio 10 % 02/24/18 01:51 Glucose 98 mg/dL (75-100) 02/24/18 01:51 Lactic Acid 3.30 mmol/L (0.7-2.0) H* 02/24/18 08:13 Calcium 8.2 mg/dL (8.4-10.2) L 02/24/18 01:51 Total Bilirubin 2.00 mg/dL (0.1-1.2) H 02/24/18 01:51 AST 231 units/L (5-40) H 02/24/18 01:51 ALT 87 units/L (7-56) H 02/24/18 01:51 Alkaline Phosphatase 619 units/L (35-129) H 02/24/18 01:51 Total Protein 7.1 g/dL (6.3-8.2) 02/24/18 01:51 Albumin 3.2 g/dL (3.9-5) L 02/24/18 01:51 Albumin/Globulin Ratio 0.8 % 02/24/18 01:51 Urine Color Yellow (Yellow) 02/24/18 03:02 Urine Turbidity Turbid (Clear) 02/24/18 03:02 Urine pH 5.0 (5.0-7.0) 02/24/18 03:02 Ur Specific [place] 1.009 (1.003-1.030) 02/24/18 03:02 Urine Protein 100 mg/dl mg/dL (Negative) 02/24/18 03:02 Urine Glucose (UA) Neg mg/dL (Negative) 02/24/18 03:02 Urine Ketones Neg mg/dL (Negative) 02/24/18 03:02 Urine Blood Mod (Negative) 02/24/18 03:02 Urine Nitrite Neg (Negative) 02/24/18 03:02 Urine Bilirubin Neg (Negative) 02/24/18 03:02 Urine Urobilinogen 4.0 mg/dL (<2.0) 02/24/18 03:02 Ur Leukocyte Esterase Mod (Negative) 02/24/18 03:02 Urine WBC (Auto) > 182.0 /HPF (0.0-6.0) H 02/24/18 03:02 Urine RBC (Auto) 67.0 /HPF (0.0-6.0) 02/24/18 03:02 U Epithel Cells (Auto) 3.0 /HPF (0-13.0) 02/24/18 03:02 Urine Bacteria (Auto) 4+ /HPF (Negative) 02/24/18 03:02 Urine WBC Clumps 3+ /HPF 02/24/18 03:02 Assessment and Plan Assessment and plan: UTI. Urinalysis reveals greater than 182 WBCs. Patient will be started on IV antibiotics. Follow-up blood and urine cultures. The patient does have a significantly elevated lactic acid level. Continue to trend lactic acid levels Cholelithiasis. We will follow-up abdominal ultrasound. Consider HIDA scan. Consult surgery and GI. Abdominal pain. Etiology likely secondary to UTI because pain is more pronounced in the suprapubic region. However, we will follow-up abdominal ultrasound. History of bilateral PE. Continue eliquis CAD/ID s/p CABG Tobacco dependency. Patient will be counseled on smoking cessation. Colon cancer with Lap APR on 10/11/17 s/p resection with colostomy. Hypertension. Resume antihypertensive medications. DVT prophylaxis. Patient on eliquis
[2018-02-24] MEDS ORDERED: TYLENOL PO PRN (09:22)
[2018-02-24] MEDS ORDERED: ZOFRAN IV PRN (09:22)
[2018-02-24] MEDS ORDERED: SODIUM CHLORIDE FLUSH SYRINGE 10 ML IV PRN (09:22)
--- NOTE | 2018-02-24 09:23 | Ultrasound Report ---
ULTRASOUND ABDOMEN LIMITED: TECHNIQUE: Transabdominal ultrasound with color Doppler interrogation. HISTORY: Gallstones, abdominal pain, sepsis. COMPARISON: none. FINDINGS: LIVER: Moderate fatty infiltration is suspected throughout the liver. No focal liver mass or surface nodularity. BILIARY SYSTEM: There are a few tiny gallstones in the fundus of the gallbladder. The gallbladder appears normal size, contour and wall thickness on ultrasound. No pericholecystic fluid. The CBD measures 3 mm. PANCREAS: Obscured by bowel gas. RIGHT KIDNEY: Normal. PROXIMAL AORTA: Normal. ASCITES: None. IMPRESSION: Fatty infiltration of the liver. Few tiny gallstones but no findings consistent with acute cholecystitis.
[2018-02-24] MEDS ORDERED: NACL 0.9% 1000 ML 1,000 ML ONE (10:46)
[2018-02-24] MEDS ORDERED: MORPHINE ONE (10:46)
[2018-02-24] MEDS: ELIQUIS PO SCH ×2 (11:39→21:23)
[2018-02-24] MEDS: SODIUM CHLORIDE FLUSH SYRINGE 10 ML IV SCH ×2 (11:50→21:24)
[2018-02-24] MEDS ORDERED: ZOFRAN ONE (11:55)
[2018-02-24] MEDS: MAG-OX PO SCH ×2 (11:55→16:51)
--- NOTE | 2018-02-24 13:28 | Gastroenterology Consultation ---
<MARTIN YUAN - Last Filed: 02/24/18 13:28> History of Present Illness - Reason for Consult Consult date: 02/24/18 cholelithiasis Requesting physician: MARIANA MURILLO - History of Present Illness Mr Leal is a 52 y/o male admitted with reports of RUQ epigastric pain going across to the left side. He states this abruptly started last night, however he has had similar pain in the past that resolved. He is S/P APR, colon ca 2017 and resection with colostomy. He is on daily Eliquis for bilateral PE, and has a hx of MM. On admission , AST/ ALT elevated and TB 2.0. Noted to be normal in 11/2017. US with tiny gall stones, CBD WNL. Pt noted to have elevated lactic acid. CT with no acute GI process. Suggestive of cystitis? fatty liver. Past History Past Medical History: CAD, hypertension, other (colon cancer, multiple myeloma, bilateral PE) Past Surgical History: CABG, bowel surgery (Lap APR on 10/17/17 s/p resection with colostomy), Other Social history: smoking Family history: no significant family history Medications and Allergies Allergies Allergy/AdvReac Type Severity Reaction Status Date / Time garlic Allergy Swelling Verified 06/04/17 01:03 Home Medications Medication Instructions Recorded Confirmed Last Taken Type Apixaban [Eliquis] 5 mg PO Q12HR tablet 06/08/17 02/24/18 02/23/18 Rx Active Meds: Active Medications Acetaminophen (Tylenol) 650 mg PO Q4H PRN PRN Reason: Pain MILD(1-3)/Fever >100.5/HOU Apixaban (Eliquis) 5 mg PO Q12HR [facility]; Protocol Last Admin: 02/24/18 11:39 Dose: 5 mg Magnesium Oxide (Mag-Ox) 400 mg PO BIDDIAB [facility] Last Admin: 02/24/18 11:55 Dose: Not Given Ondansetron HCl (Zofran) 4 mg IV Q8H PRN PRN Reason: Nausea And Vomiting Sodium Chloride (Sodium Chloride Flush Syringe 10 Ml) 10 ml IV BID [facility] Last Admin: 02/24/18 11:50 Dose: 10 ml Sodium Chloride (Sodium Chloride Flush Syringe 10 Ml) 10 ml IV PRN PRN PRN Reason: LINE FLUSH Review of Systems - Review of Systems All systems: negative Gastrointestinal: abdominal pain Exam - Constitutional Vital Signs: Temp Pulse Resp BP Pulse Ox 97.8 F 70 12 129/82 100 02/24/18 01:42 02/24/18 13:00 02/24/18 13:00 02/24/18 13:00 02/24/18 13:00 General appearance: no acute distress - EENT Eyes: EOM intact ENT: hearing intact - Neck Neck: supple - Respiratory Respiratory: bilateral: CTA - Cardiovascular Rhythm: regular Heart Sounds: Present: S1 & S2 - Gastrointestinal General gastrointestinal: Present: soft, tender (TTP RUQ), normal bowel sounds - Integumentary Integumentary: Present: warm, dry - Neurologic Neurological: alert and oriented x3 - Psychiatric Psychiatric: appropriate mood/affect, cooperative - Labs CBC & Chem 7: 02/24/18 01:51 02/24/18 01:51 Lab Results: Laboratory Results - last 24 hr 02/24/18 02/24/18 02/24/18 01:51 01:51 03:02 WBC 3.7 L RBC 3.47 L Hgb 11.5 L Hct 33.9 L MCV 98 H MCH 33 H MCHC 34 RDW 17.5 H Plt Count 245 Lymph % (Auto) 33.9 [place] % (Auto) 5.6 Eos % (Auto) 1.9 Baso % (Auto) 0.5 Lymph # 1.3 [place] # 0.2 Eos # 0.1 Baso # 0.0 Seg Neutrophils % 58.1 Seg Neutrophils # 2.2 Sodium 137 Potassium 3.4 L Chloride 98.9 Carbon Dioxide 25 Anion Gap 17 BUN 7 L Creatinine 0.7 L Estimated GFR > 60 BUN/Creatinine Ratio 10 Glucose 98 Lactic Acid Calcium 8.2 L Total Bilirubin 2.00 H AST 231 H ALT 87 H Alkaline Phosphatase 619 H Total Protein 7.1 Albumin 3.2 L Albumin/Globulin Ratio 0.8 Urine Color Yellow Urine Turbidity Turbid Urine pH 5.0 Ur Specific [place] 1.009 Urine Protein 100 mg/dl Urine Glucose (UA) Neg Urine Ketones Neg Urine Blood Mod Urine Nitrite Neg Urine Bilirubin Neg Urine Urobilinogen 4.0 Ur Leukocyte Esterase Mod Urine WBC (Auto) > 182.0 H Urine RBC (Auto) 67.0 U Epithel Cells (Auto) 3.0 Urine Bacteria (Auto) 4+ Urine WBC Clumps 3+ 02/24/18 02/24/18 06:27 08:13 WBC RBC Hgb Hct MCV MCH MCHC RDW Plt Count Lymph % (Auto) [place] % (Auto) Eos % (Auto) Baso % (Auto) Lymph # [place] # Eos # Baso # Seg Neutrophils % Seg Neutrophils # Sodium Potassium Chloride Carbon Dioxide Anion Gap BUN Creatinine Estimated GFR BUN/Creatinine Ratio Glucose Lactic Acid 3.80 H* 3.30 H* Calcium Total Bilirubin AST ALT Alkaline Phosphatase Total Protein Albumin Albumin/Globulin Ratio Urine Color Urine Turbidity Urine pH Ur Specific [place] Urine Protein Urine Glucose (UA) Urine Ketones Urine Blood Urine Nitrite Urine Bilirubin Urine Urobilinogen Ur Leukocyte Esterase Urine WBC (Auto) Urine RBC (Auto) U Epithel Cells (Auto) Urine Bacteria (Auto) Urine WBC Clumps Assessment and Plan 1. Elevated LFTS 2. Abdominal Pain 3. Hx of colon CA with resection/ colostomy 09/2017 4. Recent hospitalization 11/2017 with sepsis from UTI - US with gallstones, CBD WNL - CT suggestive of fatty liver , cystitis? - ALP/ ALT/ ALT/ TB elevated. Repeat CMP now - Pt can not have MRCP due to metal plate in his head - Surgery has been consulted. - Pending surgical evaluation , may need to consider IOC if pt is to have CCY <DARIAN BAPTISTE R - Last Filed: 02/24/18 16:30> Medications and Allergies Active Meds: Active Medications Acetaminophen (Tylenol) 650 mg PO Q4H PRN PRN Reason: Pain MILD(1-3)/Fever >100.5/HOU Apixaban (Eliquis) 5 mg PO Q12HR [facility]; Protocol Last Admin: 02/24/18 11:39 Dose: 5 mg Magnesium Oxide (Mag-Ox) 400 mg PO BIDDIAB [facility] Last Admin: 02/24/18 11:55 Dose: Not Given Ondansetron HCl (Zofran) 4 mg IV Q8H PRN PRN Reason: Nausea And Vomiting Sodium Chloride (Sodium Chloride Flush Syringe 10 Ml) 10 ml IV BID [facility] Last Admin: 02/24/18 11:50 Dose: 10 ml Sodium Chloride (Sodium Chloride Flush Syringe 10 Ml) 10 ml IV PRN PRN PRN Reason: LINE FLUSH Exam - Constitutional Vital Signs: Temp Pulse Resp BP Pulse Ox 97.8 F 70 12 129/82 100 02/24/18 01:42 02/24/18 13:00 02/24/18 13:00 02/24/18 13:00 02/24/18 13:00 - Labs CBC & Chem 7: 02/24/18 01:51 02/24/18 01:51 Lab Results: Laboratory Results - last 24 hr 02/24/18 02/24/18 02/24/18 01:51 01:51 03:02 WBC 3.7 L RBC 3.47 L Hgb 11.5 L Hct 33.9 L MCV 98 H MCH 33 H MCHC 34 RDW 17.5 H Plt Count 245 Lymph % (Auto) 33.9 [place] % (Auto) 5.6 Eos % (Auto) 1.9 Baso % (Auto) 0.5 Lymph # 1.3 [place] # 0.2 Eos # 0.1 Baso # 0.0 Seg Neutrophils % 58.1 Seg Neutrophils # 2.2 Sodium 137 Potassium 3.4 L Chloride 98.9 Carbon Dioxide 25 Anion Gap 17 BUN 7 L Creatinine 0.7 L Estimated GFR > 60 BUN/Creatinine Ratio 10 Glucose 98 Lactic Acid Calcium 8.2 L Total Bilirubin 2.00 H AST 231 H ALT 87 H Alkaline Phosphatase 619 H Total Protein 7.1 Albumin 3.2 L Albumin/Globulin Ratio 0.8 Lipase Urine Color Yellow Urine Turbidity Turbid Urine pH 5.0 Ur Specific [place] 1.009 Urine Protein 100 mg/dl Urine Glucose (UA) Neg Urine Ketones Neg Urine Blood Mod Urine Nitrite Neg Urine Bilirubin Neg Urine Urobilinogen 4.0 Ur Leukocyte Esterase Mod Urine WBC (Auto) > 182.0 H Urine RBC (Auto) 67.0 U Epithel Cells (Auto) 3.0 Urine Bacteria (Auto) 4+ Urine WBC Clumps 3+ 02/24/18 02/24/18 02/24/18 06:27 08:13 13:07 WBC RBC Hgb Hct MCV MCH MCHC RDW Plt Count Lymph % (Auto) [place] % (Auto) Eos % (Auto) Baso % (Auto) Lymph # [place] # Eos # Baso # Seg Neutrophils % Seg Neutrophils # Sodium Potassium Chloride Carbon Dioxide Anion Gap BUN Creatinine Estimated GFR BUN/Creatinine Ratio Glucose Lactic Acid 3.80 H* 3.30 H* 2.60 H* Calcium Total Bilirubin AST ALT Alkaline Phosphatase Total Protein Albumin Albumin/Globulin Ratio Lipase Urine Color Urine Turbidity Urine pH Ur Specific [place] Urine Protein Urine Glucose (UA) Urine Ketones Urine Blood Urine Nitrite Urine Bilirubin Urine Urobilinogen Ur Leukocyte Esterase Urine WBC (Auto) Urine RBC (Auto) U Epithel Cells (Auto) Urine Bacteria (Auto) Urine WBC Clumps 02/24/18 13:07 WBC RBC Hgb Hct MCV MCH MCHC RDW Plt Count Lymph % (Auto) [place] % (Auto) Eos % (Auto) Baso % (Auto) Lymph # [place] # Eos # Baso # Seg Neutrophils % Seg Neutrophils # Sodium Potassium Chloride Carbon Dioxide Anion Gap BUN Creatinine Estimated GFR BUN/Creatinine Ratio Glucose Lactic Acid Calcium Total Bilirubin AST ALT Alkaline Phosphatase Total Protein Albumin Albumin/Globulin Ratio Lipase 11 L Urine Color Urine Turbidity Urine pH Ur Specific [place] Urine Protein Urine Glucose (UA) Urine Ketones Urine Blood Urine Nitrite Urine Bilirubin Urine Urobilinogen Ur Leukocyte Esterase Urine WBC (Auto) Urine RBC (Auto) U Epithel Cells (Auto) Urine Bacteria (Auto) Urine WBC Clumps Assessment and Plan Pt with colon cancer, followed by Dr. Ponce, who started XRT and chemorx 2 wks ago. Awoke with acute onset upper abd pain with N/V at Midnight. No prior known hx of liver disease. Had similar pain in early 01/2018 that spontaneously resolved, with CT here showing ?sludge ball in CBD, but normal LFTs. Currently, mildly tender nisreen in RUQ. Imp - Elevated LFTs and abd pain could be c/w biliary colic and passing CBD stone, but elevated LFTs could also be due to chemorx. Cannot do MRCP. - check HIDA scan - get Oncology input re: chemorx and LFTs - await Surgical eval - may need to consider abx empirically
--- NOTE | 2018-02-24 15:42 | Event Note ---
Date: 02/24/18 Consult noted in orders. Patient's chart reviewed. The patient has a history of recent colon surgery and follow up with Surgery [facility] surgical group. Recommend consult be changed for continuity of surgical care. Discussed with Dr. Momin.
[2018-02-24] MEDS: PERCOCET 5/325 PO PRN (21:23)
[2018-02-24] MEDS: HABITROL TD SCH (21:23)
[2018-02-25] MEDS: PERCOCET 5/325 PO PRN ×5 (01:36→23:15)
[2018-02-25 05:48] LABS: Basophils % (Auto) 0.6 % (0.0-1.8); Eosinophils # (Auto) 0.1 K/mm3 (0.0-0.4); Eosinophils % (Auto) 3.3 % (0.0-4.3); Hemoglobin 9.9 gm/dl (11.8-15.2); Lymphocytes # (Auto) 0.7 K/mm3 (1.2-5.4); Lymphocytes % (Auto) 27.9 % (13.4-35.0); Mean Corpuscular HGB Conc 33 % (32-34); Mean Corpuscular Hemoglobin 33 pg (28-32); Mean Corpuscular Volume 99 fl (84-94); Monocytes # (Auto) 0.1 K/mm3 (0.0-0.8); Monocytes % (Auto) 5.6 % (0.0-7.3); Platelet Count 215 K/mm3 (140-440); Red Blood Count 3.03 M/mm3 (3.65-5.03); Red Cell Distribution Width 18.7 % (13.2-15.2)
[2018-02-25 06:09] LABS: BUN/Creatinine Ratio 9; Blood Urea Nitrogen 6 mg/dL (9-20); Calcium 7.6 mg/dL (8.4-10.2); Hemolysis Index 0
[2018-02-25] MEDS: MAG-OX PO SCH ×3 (08:44→17:32)
--- NOTE | 2018-02-25 10:00 | Progress Note ---
Assessment and Plan Assessment and plan: UTI. Continue iv Ceftriaxone. Follow-up blood and urine cultures. Cholelithiasis. We will follow-up abdominal ultrasound. For HIDA scan. Elevated LFT Surgery and GI consulted Abdominal pain. Surger consulted History of bilateral PE. Continue eliquis CAD/ME s/p CABG Tobacco dependency. Patient will be counseled on smoking cessation. Colon cancer with Lap APR on 10/11/17 s/p resection with colostomy. On chemotherapy by iv pump. Consult Dr. Ponce Hypertension. Resume antihypertensive medications. DVT prophylaxis. Patient on eliquis History Interval history: Abdominal pain has iv pump for colon cancer chemo Hospitalist Physical - Physical exam Narrative exam: GEN: Not in acute distress, lying in bed HEENT: Normocephalic, atraumatic, Neck: supple, No JVD Lungs: Clear to auscultation bilaterally, no crackles, no wheeze Heart:S1 and S2 regular, no murmurs, rubs or gallop, Abd:soft, mild tender, non-distended, colostomy, normal bowel sounds Ext: No edema, no clubbing, no cyanosis Neuro: Awake, alert, oriented x 3, no focal signs - Constitutional Vitals: Temp Pulse Resp BP Pulse Ox 98.2 F 64 12 125/80 98 02/25/18 05:01 02/25/18 05:01 02/25/18 05:01 02/25/18 05:01 02/25/18 05:01 General appearance: Present: no acute distress, well-nourished Results - Labs CBC & Chem 7: 02/25/18 05:24 02/25/18 13:07 Labs: Laboratory Last Values WBC 2.4 K/mm3 (4.5-11.0) L 02/25/18 05:24 RBC 3.03 M/mm3 (3.65-5.03) L 02/25/18 05:24 Hgb 9.9 gm/dl (11.8-15.2) L 02/25/18 05:24 Hct 30.0 % (35.5-45.6) L 02/25/18 05:24 MCV 99 fl (84-94) H 02/25/18 05:24 MCH 33 pg (28-32) H 02/25/18 05:24 MCHC 33 % (32-34) 02/25/18 05:24 RDW 18.7 % (13.2-15.2) H 02/25/18 05:24 Plt Count 215 K/mm3 (140-440) 02/25/18 05:24 Lymph % (Auto) 27.9 % (13.4-35.0) 02/25/18 05:24 [place] % (Auto) 5.6 % (0.0-7.3) 02/25/18 05:24 Eos % (Auto) 3.3 % (0.0-4.3) 02/25/18 05:24 Baso % (Auto) 0.6 % (0.0-1.8) 02/25/18 05:24 Lymph # 0.7 K/mm3 (1.2-5.4) L 02/25/18 05:24 [place] # 0.1 K/mm3 (0.0-0.8) 02/25/18 05:24 Eos # 0.1 K/mm3 (0.0-0.4) 02/25/18 05:24 Baso # 0.0 K/mm3 (0.0-0.1) 02/25/18 05:24 Seg Neutrophils % 62.6 % (40.0-70.0) 02/25/18 05:24 Seg Neutrophils # 1.5 K/mm3 (1.8-7.7) L 02/25/18 05:24 Sodium 141 mmol/L (137-145) 02/25/18 05:24 Potassium 3.6 mmol/L (3.6-5.0) 02/25/18 05:24 Chloride 102.1 mmol/L (98-107) 02/25/18 05:24 Carbon Dioxide 29 mmol/L (22-30) 02/25/18 05:24 Anion Gap 14 mmol/L 02/25/18 05:24 BUN 6 mg/dL (9-20) L 02/25/18 05:24 Creatinine 0.7 mg/dL (0.8-1.5) L 02/25/18 05:24 Estimated GFR > 60 ml/min 02/25/18 05:24 BUN/Creatinine Ratio 9 % 02/25/18 05:24 Glucose 89 mg/dL (75-100) 02/25/18 05:24 Lactic Acid 2.60 mmol/L (0.7-2.0) H* 02/24/18 13:07 Calcium 7.6 mg/dL (8.4-10.2) L 02/25/18 05:24 Total Bilirubin 2.00 mg/dL (0.1-1.2) H 02/24/18 01:51 AST 231 units/L (5-40) H 02/24/18 01:51 ALT 87 units/L (7-56) H 02/24/18 01:51 Alkaline Phosphatase 619 units/L (35-129) H 02/24/18 01:51 Total Protein 7.1 g/dL (6.3-8.2) 02/24/18 01:51 Albumin 3.2 g/dL (3.9-5) L 02/24/18 01:51 Albumin/Globulin Ratio 0.8 % 02/24/18 01:51 Lipase 11 units/L (13-60) L 02/24/18 13:07 Urine Color Yellow (Yellow) 02/24/18 03:02 Urine Turbidity Turbid (Clear) 02/24/18 03:02 Urine pH 5.0 (5.0-7.0) 02/24/18 03:02 Ur Specific [place] 1.009 (1.003-1.030) 02/24/18 03:02 Urine Protein 100 mg/dl mg/dL (Negative) 02/24/18 03:02 Urine Glucose (UA) Neg mg/dL (Negative) 02/24/18 03:02 Urine Ketones Neg mg/dL (Negative) 02/24/18 03:02 Urine Blood Mod (Negative) 02/24/18 03:02 Urine Nitrite Neg (Negative) 02/24/18 03:02 Urine Bilirubin Neg (Negative) 02/24/18 03:02 Urine Urobilinogen 4.0 mg/dL (<2.0) 02/24/18 03:02 Ur Leukocyte Esterase Mod (Negative) 02/24/18 03:02 Urine WBC (Auto) > 182.0 /HPF (0.0-6.0) H 02/24/18 03:02 Urine RBC (Auto) 67.0 /HPF (0.0-6.0) 02/24/18 03:02 U Epithel Cells (Auto) 3.0 /HPF (0-13.0) 02/24/18 03:02 Urine Bacteria (Auto) 4+ /HPF (Negative) 02/24/18 03:02 Urine WBC Clumps 3+ /HPF 02/24/18 03:02
--- NOTE | 2018-02-25 13:16 | Consultation ---
History of Present Illness Consult date: 02/25/18 Reason for consult: abdominal pain - History of present illness History of present illness: Mr Leal is a 52 y/o male admitted with reports of RUQ epigastric pain going across to the left side. He states the pian abruptly started 2 nights ago but has now resolved. He reports nausea and vomiting 2 nights ago but nobne since then. He is hungry now. He is S/P APR for rectal cancer September 2017 . He is currently on chemotherapy per Dr. Ponce. He is on daily Eliquis for bilateral PE. Past History Past Medical History: CAD, hypertension, other (colon cancer, multiple myeloma, bilateral PE) Past Surgical History: CABG, bowel surgery (Lap APR on 10/17/17 s/p resection with colostomy), Other Social history: smoking Family history: no significant family history Medications and Allergies Allergies Allergy/AdvReac Type Severity Reaction Status Date / Time garlic Allergy Swelling Verified 06/04/17 01:03 Home Medications Medication Instructions Recorded Confirmed Last Taken Type Apixaban [Eliquis] 5 mg PO Q12HR tablet 06/08/17 02/24/18 02/23/18 Rx Active Meds: Active Medications Acetaminophen (Tylenol) 650 mg PO Q4H PRN PRN Reason: Pain MILD(1-3)/Fever >100.5/HOU Last Admin: 02/24/18 16:52 Dose: 650 mg Apixaban (Eliquis) 5 mg PO Q12HR [facility]; Protocol Last Admin: 02/24/18 21:23 Dose: 5 mg Ceftriaxone Sodium (Rocephin/Ns 1 Gm/50 Ml) 1 gm in 50 mls @ 100 mls/hr IV Q24HR [facility] Magnesium Oxide (Mag-Ox) 400 mg PO BIDDIAB [facility] Last Admin: 02/25/18 08:44 Dose: Not Given Nicotine (Habitrol) 14 mg TD QDAY [facility] Last Admin: 02/24/18 21:23 Dose: 14 mg Ondansetron HCl (Zofran) 4 mg IV Q8H PRN PRN Reason: Nausea And Vomiting Oxycodone/Acetaminophen (Percocet 5/325) 1 tab PO Q4H PRN PRN Reason: Pain, Moderate (4-6) Last Admin: 02/25/18 05:38 Dose: 1 tab Sodium Chloride (Sodium Chloride Flush Syringe 10 Ml) 10 ml IV BID PACO Last Admin: 02/24/18 21:24 Dose: 10 ml Sodium Chloride (Sodium Chloride Flush Syringe 10 Ml) 10 ml IV PRN PRN PRN Reason: LINE FLUSH Exam Vital Signs Temp Pulse Resp BP Pulse Ox 97.8 F 81 18 99/74 96 02/24/18 01:42 02/24/18 01:42 02/24/18 01:42 02/24/18 01:42 02/24/18 01:42 - General physical appearance Positive: well developed, no distress - Eyes Negative: icteric - Neck Positive: no masses - Respiratory Positive: clear to auscultation - Cardiovascular Rhythm: regular - Abdomen Abdomen: Present: soft, other (wel healed incisional scar; colostomy functioning ). Absent: tender, distended, guarding, rigid - Neurologic Neurologic: alert and oriented to time, place and person Results - Labs 02/25/18 05:24 02/25/18 05:24 Abnormal lab results 02/24/18 02/24/18 02/25/18 Range/Units 13:07 13:07 05:24 WBC 2.4 L (4.5-11.0) K/mm3 RBC 3.03 L (3.65-5.03) M/mm3 Hgb 9.9 L (11.8-15.2) gm/dl Hct 30.0 L (35.5-45.6) % MCV 99 H (84-94) fl MCH 33 H (28-32) pg RDW 18.7 H (13.2-15.2) % Lymph # 0.7 L (1.2-5.4) K/mm3 Seg Neutrophils # 1.5 L (1.8-7.7) K/mm3 BUN (9-20) mg/dL Creatinine (0.8-1.5) mg/dL Lactic Acid 2.60 H* (0.7-2.0) mmol/L Calcium (8.4-10.2) mg/dL Lipase 11 L (13-60) units/L 02/25/18 Range/Units 05:24 WBC (4.5-11.0) K/mm3 RBC (3.65-5.03) M/mm3 Hgb (11.8-15.2) gm/dl Hct (35.5-45.6) % MCV (84-94) fl MCH (28-32) pg RDW (13.2-15.2) % Lymph # (1.2-5.4) K/mm3 Seg Neutrophils # (1.8-7.7) K/mm3 BUN 6 L (9-20) mg/dL Creatinine 0.7 L (0.8-1.5) mg/dL Lactic Acid (0.7-2.0) mmol/L Calcium 7.6 L (8.4-10.2) mg/dL Lipase (13-60) units/L Diabetes panel 02/25/18 Range/Units 05:24 Sodium 141 (137-145) mmol/L Potassium 3.6 (3.6-5.0) mmol/L Chloride 102.1 (98-107) mmol/L Carbon Dioxide 29 (22-30) mmol/L BUN 6 L (9-20) mg/dL Creatinine 0.7 L (0.8-1.5) mg/dL Glucose 89 (75-100) mg/dL Calcium 7.6 L (8.4-10.2) mg/dL Calcium panel 02/25/18 Range/Units 05:24 Calcium 7.6 L (8.4-10.2) mg/dL Pituitary panel 02/25/18 Range/Units 05:24 Sodium 141 (137-145) mmol/L Potassium 3.6 (3.6-5.0) mmol/L Chloride 102.1 (98-107) mmol/L Carbon Dioxide 29 (22-30) mmol/L BUN 6 L (9-20) mg/dL Creatinine 0.7 L (0.8-1.5) mg/dL Glucose 89 (75-100) mg/dL Calcium 7.6 L (8.4-10.2) mg/dL Adrenal panel 02/25/18 Range/Units 05:24 Sodium 141 (137-145) mmol/L Potassium 3.6 (3.6-5.0) mmol/L Chloride 102.1 (98-107) mmol/L Carbon Dioxide 29 (22-30) mmol/L BUN 6 L (9-20) mg/dL Creatinine 0.7 L (0.8-1.5) mg/dL Glucose 89 (75-100) mg/dL Calcium 7.6 L (8.4-10.2) mg/dL Assessment and Plan Upper abdominal pain ( RUQ/LUQ / epigastric) has resolved- patient may have biliary colic which can be addressed once he is finished with chemotherapy. No evidence of acute choleycystitis though official reading of HIDA scan pending. Elevated liver enzymes may be due to fatty liver and/or chemotherapy. No acute surgical intervention required Diet as tolerated F/U liver enzymes - Patient Problems (1) Fatty liver Current Visit: Yes Status: Acute (2) Elevated liver enzymes Current Visit: Yes Status: Acute (3) Abdominal pain Current Visit: Yes Status: Acute Qualifiers: Abdominal location: lower abdomen, unspecified Qualified Code(s): R10.30 - Lower abdominal pain, unspecified
[2018-02-25] MEDS: ROCEPHIN/NS 1 GM/50 ML 1 GM/50 ML BAG IV SCH (13:37)
[2018-02-25] MEDS: HABITROL TD SCH (13:38)
[2018-02-25] MEDS: ELIQUIS PO SCH ×2 (13:38→21:04)
--- NOTE | 2018-02-25 13:38 | Nuclear Medicine Report ---
HEPATOBILIARY SCAN: History: Cholelithiasis. Following the injection of the radionuclide, serial scanning was obtained over the right upper quadrant. Initial imaging of the liver demonstrates a relatively normal activity pattern. Progressive concentration of the radionuclide in the bile ducts, with filling of both the gallbladder and small bowel, is identified within a normal time period. IMPRESSION: Normal biliary system.
[2018-02-25] MEDS: SODIUM CHLORIDE FLUSH SYRINGE 10 ML IV SCH ×2 (13:39→21:05)
[2018-02-25 15:04] LABS: Alanine Aminotransferase 65 units/L (7-56); Albumin 2.6 g/dL (3.9-5); BUN/Creatinine Ratio 10; Blood Urea Nitrogen 7 mg/dL (9-20); Calcium 7.6 mg/dL (8.4-10.2); Hemolysis Index 2
--- NOTE | 2018-02-25 15:58 | Query-Infection ---
"Dealinette Acevedo Kristina Date:____02/25/18 Lift Truck Operator/CDS:___meño Phone#:___[phone] Exercise your independent professional judgment when responding to this query. Questions asked do not imply a particular answer is desired or expected. We greatly appreciate your clarification on this issue. Clinical Documentation States: his is a 52-year-old male with history of colon CA with recent Lap APR on s/p resection with colostomy (discharge 10/31/17 after ileus) requiring TPN, urinary retention, CAD status post CABG, multiple myeloma, tobacco dependency, hypertension and bilateral PE on eliquis who presents with complaints of lower abdominal pain. The patient reports suprapubic tenderness as well as diffuse tenderness throughout abdomen. Assessment and plan: UTI. Urinalysis reveals greater than 182 WBCs. Patient will be started on IV antibiotics. Follow-up blood and urine cultures. The patient does have a significantly elevated lactic acid level. Continue to trend lactic acid levels Cholelithiasis. Clinical findings show: (please check applicable parameters) Infection, known /suspected, with some of the following indicators; Specify the infection: UTI (Urine culture shows Gram negative J Calros) 02/24/18 02/25/18 WBC 3.7 2.4 Lactic Acid 3.8 3.3 RR 20 3 General parameters [ ] Fever (core temp >38.30C or 100.40F) [ ] Hypothermia (core temp <36C) [ ] Heart rate >90 bpm [ X] Tachypnea: >20 bpm or pCO2 < 32 mmHg [ ] Altered mental status [ ] Significant edema / +ve fluid balance (>20 ml/kg 24 h) [ ] Hyperglycemia (Bl. glucose >110 mg/dl) w/o diabetes Inflammatory parameters [ ] Leukocytosis (white blood cell count >12,000/l) [X ] Leukopenia (white blood cell count <4,000/l) [ ] Bandemia (immature WBC > 10%) [ ] Leucocyte Left Shift [ ] Plasma procalcitonin>2 SD above the normal value Hemodynamic and tissue perfusion parameters [ ] Arterial hypotension(SBP <90 mmHg, MAP <70 mmHg,or a SBP drop >40 mmHg in adults) [X ] Hyperlactatemia (>3 mmol/l) [ ] Anion Gap (> 11mEG/l) [ ] Decreased capillary refill or mottling Organ dysfunction parameters [ ] Arterial hypoxemia (PaO2/FIO2 <300) [ ] Creatinine increase =0.5 mg/dl [ ] Acute oliguria (urine output <0.5 ml | kg |h or 45 mM/l for at least 2 hrs) [ ] Coagulation abnormalities (INR >1.5 or activated partial thromboplastin time >60 s) [ ] Ileus (absent brandi wel sounds) [ ] Thrombocytopenia (platelet count <100,000/l) [ ] Hyperbilirubinemia (plasma total bilirubin >4 mg/dl) According to the clinical indications above, can Bacteremia be further specified? If so, please indicate below and in your Progress Notes and/ or Discharge Summary. Indicate if the condition was present on admission. PHYSICIAN RESPONSE: [x] Sepsis [ ] Severe Sepsis [ ] Septic Shock [ ] Septicemia [ ] Sepsis now resolved [ ] SIRS due to non-infectious cause with organ dysfunction [ ] SIRS due to non-infectious cause without organ dysfunction [ ] Other: [ ] Comment/Explanation: Present on Admission: [x Yes (Y) [ ] Clinically undeterminable (W) [ ] No (N ) [ ] Ruled Out Please also document response in your Progress Notes and/or Discharge Summary and indicate if the condition was present on admission Notes: SIRS/ SIRS WITH ORGAN DYSFUNCTION Systemic inflammatory response syndrome (SIRS) generally refers to the systemic response to trauma/manning or other insult such as Acute Myocardial Infarction, Acute Pancreatitis, and Major Surgery with symptoms including fever, tachycardia , tachypnea, and leukocytosis (1). BACTEREMIA Presence of viable bacteria in the circulating blood (2). This term is reserved for patients that do not manifest above SIRS response. SEPTICEMIA Generally refers to a systemic disease associated with the presence of pathological microorganisms or toxins in the blood, which can include bacteria, viruses, fungi or other organisms (1). SEPSIS Generally refers to SIRS due infection (1). SEVERE SEPSIS Generally refers to sepsis associated with acute organ dysfunction (1). SEPTIC SHOCK Generally refers to circulatory failure associated with severe sepsis (2), and defined as hypotension or hypoperfusion despite adequate fluid resuscitation (1 hour) (3). REFERENCES: 1. [employer] [employer]/Society of Critical Care Medicine Consensus Conference. Definitions for sepsis and organ failure and guidelines for the use of innovative therapies in sepsis. Critical Care Med 1992;20:864 - 74. 2. Jose de guzman MM, Vidhi MP, Jose JACOBY, Yuri E, Michael D, Yash D, Buck J, [place] SM , Nasim JL, Supriya G; International Sepsis Definitions Conference. 2001 SCCM/ESICM/ACCP/ATS/SIS International Sepsis Definitions Conference. Intensive Care Med. 2002 Apr;29(4):530-8. Epub 2002Aug 14. Review. PubMed PMID:[id number] 3. ICD-9-CM Official Guidelines for Coding and Reporting 4. Medscape Drugs, Diseases and Procedures references 5. [employer] Textbook of Internal Medicine. 18th Edition MTDD"
--- NOTE | 2018-02-25 16:14 | Gastroenterology Progress Note ---
<MARTIN YUAN - Last Filed: 02/25/18 16:14> Assessment and Plan 1. Elevated LFTS 2. Abdominal Pain 3. Hx of colon CA with resection/ colostomy 09/2017 4. Recent hospitalization 11/2017 with sepsis from UTI - US with gallstones, CBD WNL - CT suggestive of fatty liver , cystitis? - ALP/ ALT/ ALT/ TB elevated on admission, now trending down. - Pt can not have MRCP due to metal plate in his head - Surgery has been consulted>> recommends CCY after chemo tx completed.. - HIDA scan negative. -Ok for diet today. Subjective Date of service: 02/25/18 Interval history: No acute events overnight. Objective - Constitutional Vitals: Temp Pulse Resp BP Pulse Ox 98.2 F 64 12 125/80 98 02/25/18 05:01 02/25/18 05:01 02/25/18 05:01 02/25/18 05:01 02/25/18 05:01 General appearance: no acute distress - EENT Eyes: EOM intact - Gastrointestinal General gastrointestinal: Present: soft, non-tender, normal bowel sounds - Integumentary Integumentary: Present: warm, dry - Neurologic Neurological: alert and oriented x3 - Labs CBC & Chem 7: 02/25/18 05:24 02/25/18 13:07 Labs: Laboratory Results - last 24 hr 02/25/18 02/25/18 02/25/18 05:24 05:24 13:07 WBC 2.4 L RBC 3.03 L Hgb 9.9 L Hct 30.0 L MCV 99 H MCH 33 H MCHC 33 RDW 18.7 H Plt Count 215 Lymph % (Auto) 27.9 [place] % (Auto) 5.6 Eos % (Auto) 3.3 Baso % (Auto) 0.6 Lymph # 0.7 L [place] # 0.1 Eos # 0.1 Baso # 0.0 Seg Neutrophils % 62.6 Seg Neutrophils # 1.5 L Sodium 141 142 Potassium 3.6 3.6 Chloride 102.1 102.7 Carbon Dioxide 29 28 Anion Gap 14 15 BUN 6 L 7 L Creatinine 0.7 L 0.7 L Estimated GFR > 60 > 60 BUN/Creatinine Ratio 9 10 Glucose 89 90 Calcium 7.6 L 7.6 L Total Bilirubin 1.80 H AST 192 H ALT 65 H Alkaline Phosphatase 544 H Total Protein 5.4 L D Albumin 2.6 L Albumin/Globulin Ratio 0.9 <DARIAN BAPTISTE R - Last Filed: 02/25/18 16:44> Assessment and Plan Pt feels better. Pain much reduced. HIDA scan negative, but done WITHOUT CCK. - Dr. Ponce notified re: pt in hospital and to address chemorx and possible LFT effect - regardless, adv diet, and D/C tomorrow if tolerates Objective - Constitutional Vitals: Temp Pulse Resp BP Pulse Ox 98.2 F 64 12 125/80 98 02/25/18 05:01 02/25/18 05:01 02/25/18 05:01 02/25/18 05:01 02/25/18 05:01 - Labs CBC & Chem 7: 02/25/18 05:24 02/25/18 13:07 Labs: Laboratory Results - last 24 hr 02/25/18 02/25/18 02/25/18 05:24 05:24 13:07 WBC 2.4 L RBC 3.03 L Hgb 9.9 L Hct 30.0 L MCV 99 H MCH 33 H MCHC 33 RDW 18.7 H Plt Count 215 Lymph % (Auto) 27.9 [place] % (Auto) 5.6 Eos % (Auto) 3.3 Baso % (Auto) 0.6 Lymph # 0.7 L [place] # 0.1 Eos # 0.1 Baso # 0.0 Seg Neutrophils % 62.6 Seg Neutrophils # 1.5 L Sodium 141 142 Potassium 3.6 3.6 Chloride 102.1 102.7 Carbon Dioxide 29 28 Anion Gap 14 15 BUN 6 L 7 L Creatinine 0.7 L 0.7 L Estimated GFR > 60 > 60 BUN/Creatinine Ratio 9 10 Glucose 89 90 Calcium 7.6 L 7.6 L Total Bilirubin 1.80 H AST 192 H ALT 65 H Alkaline Phosphatase 544 H Total Protein 5.4 L D Albumin 2.6 L Albumin/Globulin Ratio 0.9
--- NOTE | 2018-02-25 17:49 | Hem/Onc Progress Note ---
Assessment and Plan - Patient Problems (1) Hepatic dysfunction Current Visit: Yes Status: Acute Plan to address problem: I f numbers stabilize dc home with outpatient follow up Subjective Date of service: 02/25/18 Interval history: He feels much better. Chemo is done for this week Objective - Constitutional Vitals: Last Vital Signs Temp 98.2 F 02/25/18 05:01 Pulse 64 02/25/18 05:01 Resp 12 02/25/18 05:01 BP 125/80 02/25/18 05:01 Pulse Ox 98 02/25/18 05:01 Pain Intensity (0-10): denies any pain General appearance: no acute distress - EENT Eyes: PERRL ENT: hearing intact - Labs Lab Results: Laboratory Results - last 24 hr 02/25/18 02/25/18 02/25/18 05:24 05:24 13:07 WBC 2.4 L RBC 3.03 L Hgb 9.9 L Hct 30.0 L MCV 99 H MCH 33 H MCHC 33 RDW 18.7 H Plt Count 215 Lymph % (Auto) 27.9 [place] % (Auto) 5.6 Eos % (Auto) 3.3 Baso % (Auto) 0.6 Lymph # 0.7 L [place] # 0.1 Eos # 0.1 Baso # 0.0 Seg Neutrophils % 62.6 Seg Neutrophils # 1.5 L Sodium 141 142 Potassium 3.6 3.6 Chloride 102.1 102.7 Carbon Dioxide 29 28 Anion Gap 14 15 BUN 6 L 7 L Creatinine 0.7 L 0.7 L Estimated GFR > 60 > 60 BUN/Creatinine Ratio 9 10 Glucose 89 90 Calcium 7.6 L 7.6 L Total Bilirubin 1.80 H AST 192 H ALT 65 H Alkaline Phosphatase 544 H Total Protein 5.4 L D Albumin 2.6 L Albumin/Globulin Ratio 0.9
[2018-02-25] MEDS ORDERED: FLUSH HEPARIN IV ONE (18:14)
[2018-02-25] MEDS ORDERED: TRIPLE ANTIBIOTIC TP ONE (18:14)
[2018-02-25] MEDS: BENADRYL IV PRN (21:05)
[2018-02-26 06:15] LABS: Alanine Aminotransferase 72 units/L (7-56); Albumin 2.6 g/dL (3.9-5); BUN/Creatinine Ratio 6; Blood Urea Nitrogen 4 mg/dL (9-20); Calcium 7.9 mg/dL (8.4-10.2); Hemolysis Index 1
[2018-02-26] MEDS: PERCOCET 5/325 PO PRN ×2 (06:25→13:59)
[2018-02-26] MEDS: MAG-OX PO SCH (08:27)
--- NOTE | 2018-02-26 08:40 | Hem/Onc Progress Note ---
Assessment and Plan Escherichia coli urinary tract infection. Patient on Rocephin. Awaiting and sensitivity Check CBC since patient's last chemotherapy was last week Subjective Date of service: 02/26/18 Interval history: Patient feels better. Urine culture showing Escherichia coli. Objective - Constitutional Vitals: Last Vital Signs Temp 98.1 F 02/26/18 05:01 Pulse 68 02/26/18 05:01 Resp 16 02/26/18 05:01 BP 116/75 02/26/18 05:01 Pulse Ox 99 02/26/18 05:01 General appearance: no acute distress Performance status: 2- selfcare, ambulatory - Neck Neck: supple - Respiratory Respiratory effort: Positive: normal Respiratory: bilateral: CTA - Cardiovascular Rhythm: regular - Gastrointestinal General gastrointestinal: Present: soft (mildly tender) - Labs Lab Results: Laboratory Results - last 24 hr 02/25/18 02/26/18 13:07 05:04 Sodium 142 144 Potassium 3.6 3.7 Chloride 102.7 105.2 Carbon Dioxide 28 30 Anion Gap 15 13 BUN 7 L 4 L Creatinine 0.7 L 0.7 L Estimated GFR > 60 > 60 BUN/Creatinine Ratio 10 6 Glucose 90 94 Calcium 7.6 L 7.9 L Total Bilirubin 1.80 H 1.40 H AST 192 H 227 H ALT 65 H 72 H Alkaline Phosphatase 544 H 552 H Total Protein 5.4 L D 5.6 L Albumin 2.6 L 2.6 L Albumin/Globulin Ratio 0.9 0.9
[2018-02-26 09:29] LABS: Basophils % (Auto) 0.7 % (0.0-1.8); Eosinophils # (Auto) 0.1 K/mm3 (0.0-0.4); Eosinophils % (Auto) 4.5 % (0.0-4.3); Hematocrit 30.5 % (35.5-45.6); Hemoglobin 10.6 gm/dl (11.8-15.2); Lymphocytes # (Auto) 0.7 K/mm3 (1.2-5.4); Lymphocytes % (Auto) 28.1 % (13.4-35.0); Mean Corpuscular HGB Conc 35 % (32-34); Mean Corpuscular Hemoglobin 35 pg (28-32); Mean Corpuscular Volume 100 fl (84-94); Monocytes # (Auto) 0.1 K/mm3 (0.0-0.8); Monocytes % (Auto) 5.8 % (0.0-7.3); Platelet Count 232 K/mm3 (140-440); Red Blood Count 3.05 M/mm3 (3.65-5.03); Red Cell Distribution Width 18.1 % (13.2-15.2)
[2018-02-26] MEDS: HABITROL TD SCH (09:52)
[2018-02-26] MEDS: ELIQUIS PO SCH (09:52)
[2018-02-26] MEDS: ROCEPHIN/NS 1 GM/50 ML 1 GM/50 ML BAG IV SCH (09:52)
[2018-02-26] MEDS: SODIUM CHLORIDE FLUSH SYRINGE 10 ML IV SCH (09:53)
[2018-02-26 12:10] VITALS: BP 122/74
--- NOTE | 2018-02-26 13:03 | Query- Nutrition ---
Dealinette Fields Date:____02/26/18 Log Scaler/CDS:___meño Phone#:____[phone] Exercise your independent professional judgment when responding to query. Questions asked do not imply a particular answer is desired or expected. We greatly appreciate your clarification on this issue. Clinical Documentation States: This is a 52-year-old male with history of colon CA with recent Lap APR on s/p resection with colostomy complaints of lower abdominal pain. The patient reports suprapubic tenderness as well as diffuse tenderness throughout abdomen. Assessment and plan: UTI. Continue iv Ceftriaxone. Follow-up blood and urine cultures. Cholelithiasis. We will follow-up abdominal ultrasound. For HIDA scan. Elevated LFT Clinical Findings Show: 02/24/1802/25 18 02/26/18 Sr. Albumin 3.2 2.6 2.6 Please select the most appropriate option 3 [ ] Mild Malnutrition [ ] Moderate Malnutrition [x] Severe Malnutrition Serum Albumin 2.8 to 3.4 g/dl or Pre-albumin 5 to 17 mg/dl1,2 Inadequate nutritional intake1,2,3,4 NPO > 5 days Weight loss: 5% in 1 month or 7.5% in 3 months or 10% in 6 months1, 3,4 BMI 16 to 18.4 or Weight <90% of ideal body weight1,2,3,4 Serum Albumin < 2.8 g/ dl1,2 Lymphocytes < 1500/ L2 Inadequate nutritional intake3, high stress e.g. major trauma, sepsis,pancreatitis, manning etc. Decubitus ulcers1,2, , skin breakdown2, easy hair pluckability2 Weight <80% standard for height2 Triceps skin fold <3 mm2 Mid-arm muscle circumference <15 cm2 Creatinine-height index <60% standard2 [ ] Cachexia [ ] Emaciated w/Malnutrition [ ] Other: [ ] Unable to determine [ ] Comment/Explanation: Present on Admission: [x] Yes (Y) [ ] Clinically undeterminable (W) [ ] No ( N) Please also document response in your Progress Notes and/or Discharge Summary and indicate if the condition was present on admission. MTDD
[2018-02-26] MEDS: BENADRYL IV PRN (13:59)
[2018-02-26] MEDS ORDERED: BENADRYL PO PRN (14:46)
--- NOTE | 2018-02-26 14:58 | Gastroenterology Progress Note ---
Assessment and Plan 1. Elevated LFTS 2. Abdominal Pain 3. Hx of colon CA with resection/ colostomy 09/2017 4. Recent hospitalization 11/2017 with sepsis from UTI - US with gallstones, CBD WNL - CT suggestive of fatty liver , cystitis, urine culture notable for Pneumoniae Klebsiella. - ALP/ ALT/ ALT/ TB elevated on admission, essentially the same. - Pt can not have MRCP due to metal plate in his head - Surgery has been consulted>> recommends CCY after chemo tx completed.. - HIDA scan negative. - Tolerating diet well - Pt denies pain, tolerating diet. LFTS could be due to Chemotherapy. Will monitor as an outpatient. Pt given office information for follow up in 2 weeks. -No further GI intervention as inpatient. OK to DC per GI standpoint. Subjective Date of service: 02/26/18 Interval history: No acute events overnight. Objective - Constitutional Vitals: Temp Pulse Resp BP Pulse Ox 97.6 F 64 18 122/74 98 02/26/18 11:53 02/26/18 11:53 02/26/18 11:53 02/26/18 11:53 02/26/18 11:53 General appearance: no acute distress - EENT Eyes: EOM intact ENT: hearing intact - Neck Neck: supple - Cardiovascular Rhythm: regular - Gastrointestinal General gastrointestinal: Present: soft, non-tender, normal bowel sounds - Integumentary Integumentary: Present: warm, dry - Neurologic Neurological: alert and oriented x3 - Psychiatric Psychiatric: appropriate mood/affect, cooperative - Labs CBC & Chem 7: 02/26/18 09:02 02/26/18 05:04 Labs: Laboratory Results - last 24 hr 02/25/18 02/26/18 02/26/18 13:07 05:04 09:02 WBC 2.5 L RBC 3.05 L Hgb 10.6 L Hct 30.5 L MCV 100 H MCH 35 H MCHC 35 H RDW 18.1 H Plt Count 232 Lymph % (Auto) 28.1 [place] % (Auto) 5.8 Eos % (Auto) 4.5 H Baso % (Auto) 0.7 Lymph # 0.7 L [place] # 0.1 Eos # 0.1 Baso # 0.0 Seg Neutrophils % 60.9 Seg Neutrophils # 1.5 L Sodium 142 144 Potassium 3.6 3.7 Chloride 102.7 105.2 Carbon Dioxide 28 30 Anion Gap 15 13 BUN 7 L 4 L Creatinine 0.7 L 0.7 L Estimated GFR > 60 > 60 BUN/Creatinine Ratio 10 6 Glucose 90 94 Calcium 7.6 L 7.9 L Total Bilirubin 1.80 H 1.40 H AST 192 H 227 H ALT 65 H 72 H Alkaline Phosphatase 544 H 552 H Total Protein 5.4 L D 5.6 L Albumin 2.6 L 2.6 L Albumin/Globulin Ratio 0.9 0.9
--- NOTE | 2018-02-26 15:43 | Discharge Summary ---
Providers - Providers Date of Admission: 02/24/18 09:22 Date of discharge: 02/26/18 Attending physician: HARDY CAVAZOS 02/24/18 09:33 Consult to Physician [CONS] Routine Comment: Consulting Provider: JENNIFER REYNA Physician Instructions: Reason For Exam: cholelithiasis 02/25/18 08:07 Consult to Physician [CONS] Routine Comment: Consulting Provider: NING EID I Physician Instructions: Reason For Exam: Abdominal pain, recent colon surgery 02/25/18 09:02 Consult to Physician [CONS] Routine Comment: Consulting Provider: CIELO MERCER Physician Instructions: Reason For Exam: Rectal cancer on chemo infusion Primary care physician: SCRAP BREAKER Hospitalization Condition: Fair Disposition: DC/TX-06 HOME UNDER HOME [facility] Core Measure Documentation - Palliative Care Palliative Care/ Comfort Measures: Not Applicable - Core Measures Any of the following diagnoses?: none Exam - Constitutional Vitals: Temp Pulse Resp BP Pulse Ox 97.6 F 64 18 122/74 98 02/26/18 11:53 02/26/18 11:53 02/26/18 11:53 02/26/18 11:53 02/26/18 11:53 Plan Activity: advance as tolerated Diet: low fat, low cholesterol Additional Instructions: 1.Follow up with primary care physician in one week. 2.Follow up with ELIAS Enrique in 1 week. 3.Follow up with Dr. Mercer as scheduled. 4.Follow up with surgeon as scheduled Follow up with: PRIMARY CAREMD [Primary Care Provider] - 3-5 Days Prescriptions: Ciprofloxacin HCl [Ciprofloxacin TAB] 500 mg PO Q12H #10 tab
== END 2018-02-26 18:01 | disposition home health service (06) | DRG 871 ==
LOC: ED 01:31 → 3A 09:22
PROVIDERS: ADMIT Hospitalist; ATTEND Internal Medicine
DX: A41.9 Sepsis, unspecified organism (principal); E43 Unspecified severe protein-calorie malnutrition; K80.20 Calculus of gallbladder without cholecystitis without obstruction; N10 Acute pyelonephritis; I25.10 Atherosclerotic heart disease of native coronary artery without angina pectoris; I10 Essential (primary) hypertension; K76.89 Other specified diseases of liver; B96.20 Unspecified Escherichia coli [E. coli] as the cause of diseases classified elsewhere; F17.200 Nicotine dependence, unspecified, uncomplicated; Z86.711 Personal history of pulmonary embolism; Z85.038 Personal history of other malignant neoplasm of large intestine; I25.2 Old myocardial infarction; Z95.1 Presence of aortocoronary bypass graft; Z91.09 Other allergy status, other than to drugs and biological substances; Z92.21 Personal history of antineoplastic chemotherapy; Z93.3 Colostomy status; Z71.6 Tobacco abuse counseling
CPT/HCPCS: 36415; 74176; 76705; 78226; 80048; 80053; 81001; 82140; 83690; 85025; 87040; 87076; 87086; 87186; 96374; 96375; 99406; A6250; A9537; J0696; J1200; J1642; J1956; J2270; J2405; J7030

== ENCOUNTER 2018-08-18 08:05 | Outpatient (CLI) | payer MEDICAID ==
[2018-08-18 09:37] LABS: Blood Urea Nitrogen 5 mg/dL (9-20)
--- NOTE | 2018-08-18 11:49 | Cat Scan Report ---
CT ABDOMEN PELVIS WITH CONTRAST: HISTORY: Mass near colostomy. COMPARISON: 02/24/18 CT abdomen pelvis without contrast. TECHNIQUE: Helical CT in 1.25mm intervals following IV contrast. Sagittal and coronal reconstructions. FINDINGS: Lung bases: Normal. Liver: There is moderate diffuse fatty infiltration throughout the liver parenchyma. The hepatic vasculature is patent. No mass. Biliary system: The gallbladder appears mildly distended. No evidence for calcified gallstones, wall thickening or inflammatory changes. The common bile duct and intrahepatic ducts appear normal. Pancreas: Normal. Spleen: Normal. Kidneys/ureters/bladder: The kidneys and renal collecting systems are unremarkable. There is mild diffuse bladder wall thickening which is unchanged. This may represent trabeculation of the bladder wall or cystitis. No obvious mass. Adrenal glands: Normal. Aorta: Normal. Intestines: Colostomy in the left lower quadrant is noted. There does appear to be a small peristomal hernia containing fat medial to the distal colon. No bowel loops are incorporated. This appears unchanged since 02/24/18. There is no evidence for bowel obstruction or bowel wall thickening. No obvious colon mass. There also appears to be a midline wide mouth hernia in the supra-umbilical region versus laxity of the anterior abdominal wall. This is slightly more pronounced than on the previous exam. Appendix: Not identified. Ascites: None. Adenopathy: None. Musculoskeletal: Intact. Mild osteopenia and degenerative changes in the spine are noted. IMPRESSION: Small peristomal hernia containing fat which is unchanged since 02/24/18. There is also a widemouthed midline hernia versus laxity of the anterior abdominal wall as described above. New ascites of uncertain etiology. Mild hepatic steatosis. Mild diffuse bladder wall thickening which probably represents trabeculation.
== END 2018-08-18 08:06 | disposition home or self-care (01) ==
LOC: CT 08:05
PROVIDERS: ATTEND Internal Medicine Hematology
DX: K43.5 Parastomal hernia without obstruction or gangrene (principal); K76.0 Fatty (change of) liver, not elsewhere classified; M85.88 Other specified disorders of bone density and structure, other site; C90.20 Extramedullary plasmacytoma not having achieved remission; C90.00 Multiple myeloma not having achieved remission; C18.9 Malignant neoplasm of colon, unspecified; D45 Polycythemia vera; E78.00 Pure hypercholesterolemia, unspecified; Z87.891 Personal history of nicotine dependence
CPT/HCPCS: 36415; 74177; 82565; 84520; Q9967

== ENCOUNTER 2018-09-20 20:49 | Inpatient (IN) | payer MEDICAID ==
[2018-09-20] MEDS ORDERED: MORPHINE IV ONE (21:57)
[2018-09-20] MEDS ORDERED: NACL 0.9% 1000 ML 1,000 ML IV ONE (21:57)
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
[2018-09-20 22:37] LABS: Eosinophils # (Auto) 0.1 K/mm3 (0.0-0.4); Eosinophils % (Auto) 1.8 % (0.0-4.3); Hematocrit 31.8 % (35.5-45.6); Hemoglobin 10.8 gm/dl (11.8-15.2); Lymphocytes # (Auto) 1.6 K/mm3 (1.2-5.4); Lymphocytes % (Auto) 33.4 % (13.4-35.0); Mean Corpuscular HGB Conc 34 % (32-34); Mean Corpuscular Volume 104 fl (84-94); Monocytes # (Auto) 0.4 K/mm3 (0.0-0.8); Monocytes % (Auto) 8.1 % (0.0-7.3); Platelet Count 144 K/mm3 (140-440); Red Blood Count 3.07 M/mm3 (3.65-5.03)
[2018-09-20 22:39] LABS: Basophils % (Auto) 0.5 % (0.0-1.8)
[2018-09-20 22:46] LABS: INR 1.37 (0.87-1.13)
[2018-09-20 22:47] LABS: Alanine Aminotransferase 29 units/L (7-56); Albumin 2.4 g/dL (3.9-5); BUN/Creatinine Ratio 8; Blood Urea Nitrogen 5 mg/dL (9-20); Calcium 7.8 mg/dL (8.4-10.2); Hemolysis Index 6; Partial Thromboplastin Time 39.8 Sec. (24.2-36.6)
--- NOTE | 2018-09-21 00:22 | Cat Scan Report ---
PROCEDURE: CT abdomen and pelvis with contrast. TECHNIQUE: Computerized axial tomography of the abdomen and pelvis was performed after the IV inject ion of iodinated nonionic contrast. CT DOSE LENGTH PRODUCT: 1721.7 mGycm HISTORY: Abdominal pain, hernia, GI bleed. COMPARISONS: CT abdomen and pelvis 02/23/2018. Dictation not available. FINDINGS: There is some focal, streaky opacity in the medial portion of the right middle lobe. This could repre sent early pneumonia or chronic scarring. The lung bases are otherwise grossly clear. There are no pl eural effusions. The heart size is normal. The liver, pancreas and spleen appear normal. The gallblad annetta is present. There is no biliary dilatation. The adrenal glands are not enlarged. Both kidneys louann ear normal in size and configuration. The abdominal aorta has a normal caliber. There is no retroperi toneal adenopathy. There is a small amount of ascites in the upper abdomen and in the pelvis. There i s a colostomy in the left lower quadrant. There is a midline ventral wall hernia located close to the umbilicus. This hernia contains loops of bowel and mesenteric fat. There are no signs of intestinal obstruction. The bladder, seminal vesicles and prostate appear normal. The regional skeleton appears intact. There are some small focal lucencies with sclerotic margins in the regional skeleton. The louann earance is not typical for metastatic disease, however their number is worrisome. Their exact etiolog y is uncertain. A bone scan may be useful. IMPRESSION: Small area of right middle lobe pneumonia versus chronic scarring. Ascites. Moderately l arge ventral wall hernia containing bowel and mesenteric fat. Unusual multiple nonspecific bone lesio ns. Metastatic disease is not excluded. This document is electronically signed by Leno Mathew MD., Sep 21 2018 12:19:02 AM ET
[2018-09-21] MEDS ORDERED: TYLENOL PO PRN (02:07)
[2018-09-21] MEDS ORDERED: ZOFRAN IV PRN (02:07)
--- NOTE | 2018-09-21 02:11 | History and Physical Report ---
History of Present Illness Date of examination: 09/21/18 History of present illness: 53-year-old man with a history of coronary artery disease, colon cancer, multiple myeloma, Hypertension, pulmonary emboli on eliquis comes to the emergency room with complaints of abdominal pain constant, described as sharp, intensity 7/10, no radiation. Also stated that he started having blood clots and blood in his colostomy bag Review of systems Constitutional: no weight loss, chills, fever Ears, eyes, nose, mouth and throat: no nasal congestion, no nasal discharge, no sinus pressure, no vision change, no red eye. Neck: No neck pain or rigidity. Cardiovascular: no palpitations, chest pain Respiratory: no cough, shortness of breath Gastrointestinal: no hematochezia, abdominal pain Genitourinary : no frequency , no hematuria Musculoskeletal: no joint swelling or muscle ache Integumentary: no rash, no pruritis Neurological: no parathesias, no focal weakness Endocrine: no cold or heat intolerance, no polyuria or polydipsia Hematologic/Lymphatic: no easy bruising, no easy bleeding, no gland swelling Allergic/Immunologic: no urticaria, no angioedema. PAST MEDICAL HISTORY:coronary artery disease, colon cancer, multiple myeloma Hypertension, pulmonary emboli on eliquis PAST SURGICAL HISTORY: colostomy, CABG,back FAMILY HISTORY:hypertension SOCIAL HISTORY: smoke 1/3 pack a day, drinks 6 beers a day, no drugs Medications and Allergies Allergies Allergy/AdvReac Type Severity Reaction Status Date / Time garlic Allergy Swelling Verified 06/04/17 01:03 Home Medications Medication Instructions Recorded Confirmed Last Taken Type Apixaban [Eliquis] 5 mg PO Q12HR tablet 06/08/17 02/24/18 02/23/18 Rx Ciprofloxacin HCl [Ciprofloxacin 500 mg PO Q12H #10 tab 02/26/18 Unknown Rx TAB] Active Meds: Active Medications Acetaminophen (Tylenol) 650 mg PO Q4H PRN PRN Reason: Pain MILD(1-3)/Fever >100.5/HOU Ondansetron HCl (Zofran) 4 mg IV Q8H PRN PRN Reason: Nausea And Vomiting Sodium Chloride (Sodium Chloride Flush Syringe 10 Ml) 10 ml IV BID PACO Sodium Chloride (Sodium Chloride Flush Syringe 10 Ml) 10 ml IV PRN PRN PRN Reason: LINE FLUSH Exam - Physical Exam Narrative exam: General Apperance: The patient lying in bed, breathing comfortable HEENT: Normocephalic, atraumatic. Pupils equally round and reactive to light, EOMI, no sclericterus or JVD or thyromegaly or nodule. , no carotid bruit, mucous membranes moist, no exudate or erythema Heart: S1-S2, regular is rhythm Lungs: Clear to auscultation bilaterally, breathing comfortable Abdomen: Positive bowel sounds, soft, tender, +large hernia, nondistended, no organomegaly Extremities: + edema, no cyanosis clubbing Skin: no rash, nodule, warm and dry Neuro: cranial nerves 2-12 intact, speech is fluent, motor/sensory intact - Constitutional Vitals: Temp Pulse Resp BP Pulse Ox 98.0 F 84 17 111/76 96 09/20/18 21:57 09/21/18 02:01 09/21/18 02:01 09/21/18 02:01 09/21/18 02:01 Results - Labs CBC & Chem 7: 09/21/18 06:00 09/21/18 03:16 Labs: Abnormal lab results 09/20/18 09/20/18 09/20/18 Range/Units 22:04 22:04 22:04 RBC 3.07 L (3.65-5.03) M/mm3 Hgb 10.8 L (11.8-15.2) gm/dl Hct 31.8 L (35.5-45.6) % MCV 104 H (84-94) fl MCH 35 H (28-32) pg [place] % (Auto) 8.1 H (0.0-7.3) % PT 17.8 H (12.2-14.9) Sec. INR 1.37 H (0.87-1.13) APTT 39.8 H (24.2-36.6) Sec. Carbon Dioxide 21 L (22-30) mmol/L BUN 5 L (9-20) mg/dL Creatinine 0.6 L (0.8-1.5) mg/dL Calcium 7.8 L (8.4-10.2) mg/dL AST 158 H (5-40) units/L Alkaline Phosphatase 208 H (35-129) units/L Albumin 2.4 L (3.9-5) g/dL Lipase 62 H (13-60) units/L Assessment and Plan Assessment GI bleed Abdominal pain pulmonary emboli Alcohol abuse Coronary artery disease Colon cancer Multiple myeloma Plan Admit to medicine Check serial H&H, start IV fluid GI and surgery was consulted to see the patient Check echo, patient with lower extremity edema HOld anticoagulation Continue appropriate outpatient medication
[2018-09-21 03:25] LABS: Basophils % (Auto) 0.7 % (0.0-1.8); Eosinophils # (Auto) 0.1 K/mm3 (0.0-0.4); Hematocrit 26.8 % (35.5-45.6); Hemoglobin 9.2 gm/dl (11.8-15.2); Lymphocytes # (Auto) 1.3 K/mm3 (1.2-5.4); Lymphocytes % (Auto) 31.3 % (13.4-35.0); Mean Corpuscular HGB Conc 34 % (32-34); Mean Corpuscular Volume 103 fl (84-94); Monocytes # (Auto) 0.3 K/mm3 (0.0-0.8); Monocytes % (Auto) 7.8 % (0.0-7.3); Platelet Count 116 K/mm3 (140-440); Red Cell Distribution Width 15.2 % (13.2-15.2)
[2018-09-21 03:45] LABS: BUN/Creatinine Ratio 8; Blood Urea Nitrogen 5 mg/dL (9-20); Calcium 7.3 mg/dL (8.4-10.2); Hemolysis Index 0
[2018-09-21 06:43] LABS: Hematocrit 26.9 % (35.5-45.6); Hemoglobin 9.3 gm/dl (11.8-15.2)
[2018-09-21 06:45] LABS: Bilirubin,Urine NEG (Negative); Blood,Urine NEG (Negative); Color,Urine Yellow (Yellow); Protein,Urine <15 mg/dL mg/dL (Negative); Urobilinogen,Urine < 2.0 mg/dL (<2.0)
[2018-09-21 07:09] LABS: WBC,Urine < 1.0 /HPF (0.0-6.0)
[2018-09-21] MEDS: NACL 0.45% 1000 ML 1,000 ML IV SCH (08:49)
--- NOTE | 2018-09-21 10:34 | Event Note ---
Date: 09/21/18 53-year-old man with a history of coronary artery disease, colon cancer, multiple myeloma, Hypertension, pulmonary emboli on eliquis comes to the emergency room with complaints of abdominal pain constant, described as sharp, intensity 7/10, no radiation. CT abdomen/pelvis showed right middle lobe PNA and large ventral hernia. wait for surgery eval, cont supportive care.
[2018-09-21] MEDS: MORPHINE IV PRN ×4 (10:39→22:22)
[2018-09-21] MEDS: SODIUM CHLORIDE FLUSH SYRINGE 10 ML IV SCH ×2 (10:40→22:47)
[2018-09-21 12:19] LABS: Hematocrit 28.8 % (35.5-45.6); Hemoglobin 9.9 gm/dl (11.8-15.2)
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
[2018-09-21 15:12] LABS: Hematocrit 29.5 % (35.5-45.6); Hemoglobin 10.1 gm/dl (11.8-15.2)
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
[2018-09-21] MEDS ORDERED: BENADRYL PO PRN (22:16)
[2018-09-22] MEDS: MORPHINE IV PRN ×5 (02:21→20:05)
[2018-09-22] MEDS: SODIUM CHLORIDE FLUSH SYRINGE 10 ML IV PRN ×2 (02:23→20:06)
[2018-09-22] MEDS: NACL 0.45% 1000 ML 1,000 ML IV SCH (06:36)
--- NOTE | 2018-09-22 10:19 | Gastroenterology Progress Note ---
Assessment and Plan 1.colostomy bleed -H/H 10.1/29.5-trending up -no active signs of bleeding -etiology-patient has a parastomal hernia as well as a prolapsed ostomy which developed a small lesion (likely source of bleed) -surgery following with instructions given to hold pressure if bleed recurs with recommendations for a likely ostomy revision during upcoming surgery (hernia repair already scheduled in 7 days) -no plan for scope at this time unless recommended by surgery -okay to advance diet if okay with surgery -continue supportive care -will defer further management per surgery -GI will sign off, please call if needed 2. Recurrent rectal cancer - follows with Dr. Ponce, and may also have Multiple Myeloma diagnosed, but uncertain. 5 Subjective Date of service: 09/22/18 Principal diagnosis: GI bleed Interval history: Patient resting in bed this am w/o acute distress. No active signs of bleeding. Objective - Constitutional Vitals: Temp Pulse Resp BP Pulse Ox 98.4 F 83 14 98/64 95 09/22/18 07:47 09/22/18 07:47 09/22/18 07:47 09/22/18 07:47 09/22/18 07:47 General appearance: no acute distress - Respiratory Respiratory: bilateral: CTA - Cardiovascular Rhythm: regular - Gastrointestinal General gastrointestinal: Present: soft, non-tender, hernia (Large ventral, incisional), other (+Colostomy bag with prolapse; liquid brown stool) - Neurologic Neurological: alert and oriented x3 - Labs CBC & Chem 7: 09/21/18 14:33 09/21/18 03:16 Labs: Laboratory Results - last 24 hr 09/21/18 09/21/18 11:49 14:33 Hgb 9.9 L 10.1 L Hct 28.8 L 29.5 L
[2018-09-22] MEDS: SODIUM CHLORIDE FLUSH SYRINGE 10 ML IV SCH ×2 (10:51→22:09)
--- NOTE | 2018-09-22 15:29 | Progress Note ---
Assessment and Plan Colostomy bleed - consulted Surgical for evaluation regarding possible stoma revision - will be done outpt - GI consulted for possible colonoscopy - no plan as H/h stable - monitor H/H and transfuse as needed. Recurrent rectal cancer - follows with Dr. Ponce, will continue outpatient follow-up Abdominal pain, now resolved. Etiology unknown, no obstruction on CT abdomen/pelvis. -Tolerated the clear liquid, will continue to advance Ventral hernia - scheduled for outpt surgery DVT prophylaxis, SCD Disposition: Possible d/c in the morning if H/H is Stable and able to tolerate advanced diet Brief history: Mr Leal is 53 yo BM with a hx of recurrent rectal cancer resected in 10/17/2017 with APR with colostomy, and chemoXRT by Dr. Ponce, with a hx of MM, and a hx of DVT and PE, was on Eliquis til approx 1 month ago presented to the ER after filling colostomy bag with BRB. Pt also has c/o ventral abd pain, and has a ventral hernia that he states he is due to be operated on on 09/29/18. He was admitted for further evaluation and management. Subjective Date of service: 09/22/18 Principal diagnosis: GI bleed Interval history: Patient seen examined Denies any abdomen pain, nausea or vomiting No bleeding from the colostomy Tolerating clear liquid diet, H&H stable Objective - Exam Narrative Exam: - General physical appearance Positive: well developed, well nourished, no distress - Eyes Positive: PERRL - Respiratory Positive: normal expansion, normal respiratory effort - Cardiovascular Rhythm: regular - Extremities Extremities: no ischemia - Abdomen Abdomen: Present: soft, other (Ostomy in place. Prolapsed, able to easily reduc e. No active bleeding). Absent: tender, guarding, rigid - Genitourinary Male Genitourinary: deferred - Neurologic Neurologic: alert and oriented to time, place and person - Psychiatric Psychiatric: appropriate mood/affect - Constitutional Vitals: Vital Signs - 12hr 09/22/18 09/22/18 09/22/18 04:17 07:47 12:12 Temperature 98.3 F 98.4 F 97.7 F Pulse Rate 83 83 77 Respiratory 18 14 16 Rate Blood Pressure 100/62 98/64 125/81 O2 Sat by Pulse 96 95 94 Oximetry - Labs CBC & Chem 7: 09/21/18 14:33 09/21/18 03:16
[2018-09-23] MEDS: MORPHINE IV PRN ×3 (00:44→09:15)
[2018-09-23] MEDS: SODIUM CHLORIDE FLUSH SYRINGE 10 ML IV PRN (00:45)
[2018-09-23 07:25] LABS: BUN/Creatinine Ratio 3; Basophils % (Auto) 0.5 % (0.0-1.8); Blood Urea Nitrogen 2 mg/dL (9-20); Calcium 7.3 mg/dL (8.4-10.2); Eosinophils # (Auto) 0.1 K/mm3 (0.0-0.4); Eosinophils % (Auto) 1.8 % (0.0-4.3); Hematocrit 27.5 % (35.5-45.6); Hemoglobin 9.5 gm/dl (11.8-15.2); Hemolysis Index 11; Lymphocytes % (Auto) 34.5 % (13.4-35.0); Mean Corpuscular HGB Conc 34 % (32-34); Mean Corpuscular Volume 103 fl (84-94); Monocytes # (Auto) 0.3 K/mm3 (0.0-0.8); Monocytes % (Auto) 9.8 % (0.0-7.3); Platelet Count 104 K/mm3 (140-440); Red Blood Count 2.67 M/mm3 (3.65-5.03); Red Cell Distribution Width 15.1 % (13.2-15.2)
[2018-09-23] MEDS: SODIUM CHLORIDE FLUSH SYRINGE 10 ML IV SCH (09:07)
--- NOTE | 2018-09-23 11:26 | Discharge Summary ---
Providers - Providers Date of Admission: 09/21/18 02:07 Date of discharge: 09/23/18 Attending physician: LAURA STEPHENS 09/20/18 21:58 Consult to Physician [CONS] Urgent Comment: Consulting Provider: NING EID I Physician Instructions: Reason For Exam: abd paion hernia gi bleed 09/20/18 22:00 Consult to Physician [CONS] Urgent Comment: Consulting Provider: JENNIFER REYNA Physician Instructions: Reason For Exam: gi bleed [facility] Hospital[facility] Condition: Stable Hospital course: Brief history: Mr Leal is 53 yo BM with a hx of recurrent rectal cancer resected in 10/17/2017 with APR with colostomy, and chemoXRT by Dr. Ponce, with a hx of MM, and a hx of DVT and PE, was on Eliquis til approx 1 month ago presented to the ER after filling colostomy bag with BRB. Pt also has c/o ventral abd pain, and has a ventral hernia that he states he is due to be operated on on 09/29/18. He was admitted for further evaluation and management. CT abdomen/pelvis with contrast: Small area of right middle lobe pneumonia versus chronic scarring. Ascites. Moderately large ventral wall hernia containing bowel and mesenteric fat. Unusual multiple nonspecific bone lesions. Metastatic disease is not excluded. Discharge diagnosis and management: Colostomy bleed, resolved - consulted Surgical for evaluation regarding possible stoma revision - will be done outpt - GI consulted for possible colonoscopy - no plan as H/h stable - monitored H/H and was stable - further followup outpt Recurrent rectal cancer - follows with Dr. Ponce, will continue outpatient follow-up Abdominal pain, now resolved. Etiology unknown, no obstruction on CT abdomen/pelvis. -Tolerated the clear liquid, will continue to advance diet as tolerated Ventral hernia - scheduled for outpt surgery DVT prophylaxis, SCD Disposition: d/c home today with outpt follow up Physical exam: - General physical appearance Positive: well developed, well nourished, no distress - Eyes Positive: PERRL - Respiratory Positive: normal expansion, normal respiratory effort - Cardiovascular Rhythm: regular - Extremities Extremities: no ischemia - Abdomen Abdomen: Present: soft, other (Ostomy in place. Prolapsed, able to easily reduce. No active bleeding). Absent: tender, guarding, rigid - Genitourinary Male Genitourinary: deferred - Neurologic Neurologic: alert and oriented to time, place and person - Psychiatric Psychiatric: appropriate mood/affect Disposition: DC-01 TO HOME OR SELFCARE Time spent for discharge: 34 minutes Core Measure Documentation - Palliative Care Palliative Care/ Comfort Measures: Not Applicable - Core Measures Any of the following diagnoses?: none Exam - Constitutional Vitals: Temp Pulse Resp BP Pulse Ox 98.8 F 88 18 98/59 94 09/23/18 08:04 09/23/18 08:04 09/23/18 08:51 09/23/18 08:04 09/23/18 08:04 Plan Activity: advance as tolerated Weight Bearing Status: Non-Weight Bearing Diet: advance as tolerated Wound: keep clean and dry, change dressing Follow up with: PARRISH MARTE MD [Primary Care Provider] - 3-5 Days LALA ALLEN MD [Staff Physician] - 7 Days Forms: Accompanied Note
[2018-09-23] MEDS ORDERED: K-DUR PO ONE (11:52)
[2018-09-23 12:34] VITALS: BP 95/63
== END 2018-09-23 15:00 | disposition home or self-care (01) | DRG 393 ==
LOC: ED 20:49 → 4A 09-21 02:07
PROVIDERS: ADMIT Internal Medicine; ATTEND Internal Medicine
DX: K94.09 Other complications of colostomy (principal); J18.9 Pneumonia, unspecified organism; Y83.3 Surgical operation with formation of external stoma as the cause of abnormal reaction of the patient, or of later complication, without mention of misadventure at the time of the procedure; K92.2 Gastrointestinal hemorrhage, unspecified; R10.9 Unspecified abdominal pain; F17.210 Nicotine dependence, cigarettes, uncomplicated; I25.10 Atherosclerotic heart disease of native coronary artery without angina pectoris; F10.10 Alcohol abuse, uncomplicated; C20 Malignant neoplasm of rectum; K43.5 Parastomal hernia without obstruction or gangrene; Y90.0 Blood alcohol level of less than 20 mg/100 ml; C90.00 Multiple myeloma not having achieved remission; I10 Essential (primary) hypertension; Z86.711 Personal history of pulmonary embolism; Z79.01 Long term (current) use of anticoagulants; Z95.1 Presence of aortocoronary bypass graft; Z82.49 Family history of ischemic heart disease and other diseases of the circulatory system; Z79.899 Other long term (current) drug therapy; Z92.21 Personal history of antineoplastic chemotherapy; Z92.3 Personal history of irradiation; Z86.718 Personal history of other venous thrombosis and embolism; Z91.018 Allergy to other foods; I25.2 Old myocardial infarction; Y92.098 Other place in other non-institutional residence as the place of occurrence of the external cause
CPT/HCPCS: 36415; 74177; 80048; 80053; 81001; 82140; 83690; 85014; 85018; 85025; 85610; 85730; 86850; 86900; 86901; 87086; 93005; 93010; 93306; 96374; G0378; J2270; J7030; Q9967

== ENCOUNTER 2019-03-27 08:18 | Outpatient (CLI) | payer MEDICAID ==
[2019-03-27 09:00] LABS: Blood Urea Nitrogen 6 mg/dL (9-20)
--- NOTE | 2019-03-27 10:34 | Cat Scan Report ---
CT CHEST ABDOMEN AND PELVIS WITH CONTRAST INDICATION / CLINICAL INFORMATION: C18.9MALIGNANT NEOPLASM OF COLON UNSPECIFIED/C90.00MULTIPLE MYELO. TECHNIQUE: Axial CT images were obtained through the chest, abdomen and pelvis after 100 cc Omnipaque 300 millig farzaneh percent IV contrast. All CT scans at this location are performed using CT dose reduction for AL OSITO by means of automated exposure control. COMPARISON: None available. FINDINGS: HEART: No significant abnormality. THORACIC AORTA: No significant abnormality. MEDIASTINUM and JORDIN: No significant abnormality. LUNGS: No acute air space or interstitial disease. Mild chronic lung disease is present. PLEURA: No significant pleural effusion. No pneumothorax. LIVER: No significant abnormality. GALLBLADDER: No significant abnormality. BILE DUCTS: No significant abnormality. PANCREAS: No significant abnormality. SPLEEN: No significant abnormality. ADRENALS: No significant abnormality. RIGHT KIDNEY and URETER: No significant abnormality. LEFT KIDNEY and URETER: No significant abnormality. STOMACH and SMALL BOWEL: No significant abnormality. COLON: Evidence of previous resection distal colon with colostomy as noted APPENDIX: Not identified PERITONEUM: Anterior ventral wall defects present with gastrointestinal contents within the herniatio n without evidence of strangulation or obstruction. Ostomies present left lower quadrant No free flui d. No free air. No fluid collection. LYMPH NODES: No significant adenopathy. AORTA and ARTERIES: No significant abnormality. IVC and VEINS: No significant abnormality. URINARY BLADDER: Urinary bladder wall thickening REPRODUCTIVE ORGANS: No significant abnormality. ADDITIONAL FINDINGS: None. SKELETAL SYSTEM: Stable appearance as compared to previous exam IMPRESSION: 1. Surgical changes with partial colectomy 2. Large ventral wall defect with herniation of gastrointestinal contents 3. Bladder wall thickening 4. Several lucent lesions within the spine with sclerotic margins, most consistent with benign proces s Signer Name: Krish Anne MD Signed: 03/27/2019 10:29 AM Workstation Name: [email or web address]
== END 2019-03-27 08:19 | disposition home or self-care (01) ==
LOC: CT 08:18
PROVIDERS: ATTEND Internal Medicine Hematology
DX: C90.20 Extramedullary plasmacytoma not having achieved remission (principal); D45 Polycythemia vera; C90.00 Multiple myeloma not having achieved remission; C18.9 Malignant neoplasm of colon, unspecified
CPT/HCPCS: 36415; 71260; 74177; 82565; 84520; Q9967

== ENCOUNTER 2019-10-03 20:25 | Inpatient (IN) | payer MEDICAID ==
[2019-10-03 21:18] LABS: Hematocrit 29.7 % (35.5-45.6); Hemoglobin 10.1 gm/dl (11.8-15.2); Mean Corpuscular HGB Conc 34 % (32-34); Mean Corpuscular Volume 102 fl (84-94); Platelet Count 272 K/mm3 (140-440); Red Blood Count 2.92 M/mm3 (3.65-5.03); Red Cell Distribution Width 15.2 % (13.2-15.2)
[2019-10-03 21:22] LABS: INR 1.15 (0.87-1.13); Partial Thromboplastin Time 28.7 Sec. (24.2-36.6)
[2019-10-03 21:28] LABS: Alanine Aminotransferase 30 units/L (7-56); Albumin 3.8 g/dL (3.9-5); BUN/Creatinine Ratio 9; Blood Urea Nitrogen 7 mg/dL (9-20); Calcium 8.6 mg/dL (8.4-10.2); Hemolysis Index 2
[2019-10-03 22:29] LABS: Total Cells Counted 100
[2019-10-03 22:30] LABS: RBC Morphology Normal
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
[2019-10-03] MEDS ORDERED: SODIUM CHLORIDE 0.9% 1000 ML 1,000 ML IV ONE (23:24)
[2019-10-03] MEDS ORDERED: ONDANSETRON 4 MG/2 ML INJ IV ONE (23:28)
[2019-10-03] MEDS ORDERED: MORPHINE 4 MG/1 ML INJ IV ONE (23:28)
--- NOTE | 2019-10-04 00:12 | Cat Scan Report ---
CT abdomen pelvis w con INDICATION: History of colon cancer, bleeding from colostomy TECHNIQUE: All CT scans at this location are performed using the following dose modulation technique: Automated exposure control. Helical slices were obtained through the abdomen and pelvis. 100 cc of Omnipaque 30 0 is administered. COMPARISON: CT scan dated 03/27/2019 FINDINGS: Abdomen: The lung bases are clear. There is a 1 cm hypodensity in the left lobe of the liver, series 2 image 25. There is a subtle 1.4 cm hypodensity in the right lobe of the liver near the gallbladder fossa, series 2 image 49. The spleen, pancreas, adrenal glands, and kidneys show no acute abnormality. No adenopathy is seen. T he aorta is normal in diameter. There is a ventral hernia which contains loops of bowel in the midline this is unchanged. There is an ostomy site in the left abdomen no mass lesions are seen. Pelvis: The appendix is unremarkable. The wall of the urinary bladder appears somewhat thickened. Thi s is unchanged. There is no adenopathy. Changes of prior distal colectomy are noted. On review of bone windows, lucent lesions previously described in the spine are again noted and appea r unchanged. IMPRESSION: 1. There are 2 subtle hypodensities in the liver. With this patient's history of colon cancer these a re concerning for metastatic lesions. Osseous lesions remain stable. Ventral hernia appears unchanged. Signer Name: Dwayne Cordova MD Signed: 10/04/2019 12:08 AM Workstation Name: [id number]
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
[2019-10-04] MEDS ORDERED: SODIUM CHLORIDE 0.9% 1000 ML 1,000 ML ONE (04:56)
[2019-10-04] MEDS: MORPHINE 2 MG/1 ML INJ IV PRN ×3 (10:14→20:26)
[2019-10-04] MEDS: PANTOPRAZOLE 40 MG INJ IV SCH ×2 (10:15→21:37)
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
[2019-10-04] MEDS: SODIUM CHLORIDE 0.9% 1000 ML 1,000 ML IV SCH ×2 (14:28→23:48)
--- NOTE | 2019-10-04 15:08 | Event Note ---
Date: 10/04/19 Patient seen and examined. Case discussed with GI, Plan for endoscopy in am. BP improved
[2019-10-04] MEDS ORDERED: POLYETHYLENE GLYCOL/ELECT SOLN 4000 ML PO ONE (17:00)
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
[2019-10-05] MEDS: MORPHINE 2 MG/1 ML INJ IV PRN ×3 (00:18→09:18)
[2019-10-05 05:47] LABS: Basophils % (Auto) 0.4 % (0.0-1.8); Eosinophils # (Auto) 0.1 K/mm3 (0.0-0.4); Eosinophils % (Auto) 2.2 % (0.0-4.3); Hemoglobin 7.7 gm/dl (11.8-15.2); Lymphocytes # (Auto) 0.8 K/mm3 (1.2-5.4); Mean Corpuscular HGB Conc 34 % (32-34); Mean Corpuscular Volume 102 fl (84-94); Monocytes # (Auto) 0.2 K/mm3 (0.0-0.8); Monocytes % (Auto) 8.9 % (0.0-7.3); Platelet Count 173 K/mm3 (140-440); Red Blood Count 2.25 M/mm3 (3.65-5.03); Red Cell Distribution Width 15.8 % (13.2-15.2)
[2019-10-05 05:55] LABS: INR 1.17 (0.87-1.13)
[2019-10-05 06:03] LABS: BUN/Creatinine Ratio 7; Blood Urea Nitrogen 4 mg/dL (9-20); Calcium 7.3 mg/dL (8.4-10.2); Hemolysis Index 0
[2019-10-05] MEDS: PANTOPRAZOLE 40 MG INJ IV SCH (09:18)
[2019-10-05] MEDS ORDERED: POTASSIUM CHLORIDE ER 20 MEQ TAB PO ONE (10:00)
--- NOTE | 2019-10-05 10:16 | Anesthesia Consultation ---
Anesthesia Consult and Med Hx Date of service: 10/05/19 - Airway Anesthetic Teeth Evaluation: Good ROM Head & Neck: Adequate Mental/Hyoid Distance: Adequate Mallampati Class: Class II Intubation Access Assessment: Probably Good - Pre-Operative Health Status ASA Pre-Surgery Classification: ASA4 Proposed Anesthetic Plan: MAC - Pulmonary Hx Smoking: Yes (CIGARETTES 1 PP2 DAYS X 30 YRS) Hx Asthma: No Hx Respiratory Symptoms: No SOB: No COPD: No Home Oxygen Therapy: No Hx Pneumonia: No Hx Sleep Apnea: No - Cardiovascular System Hx Hypertension: Yes Hx Coronary Artery Disease: Yes (double bypass graft) Hx Heart Attack/AMI: Yes (2013) Hx Angina: No Hx Percutaneous Transluminal Coronary Angioplasty (PTCA): No Hx Cardia Arrhythmia: No Hx Pacemaker: No Hx Internal Defibrillator: No Hx Valvular Heart Disease: No Hx Heart Murmur: No Hx Peripheral Vascular Disease: Yes (clots in the legs) - Central Nervous System Hx Neuromuscular Disorder: Yes (numbness, tingling bilateral below verterbrae fusion - see notes below) Hx Seizures: No CVA: No Hx Back Pain: Yes Hx Psychiatric Problems: No - Gastrointestinal Hx Ulcer: No Hx Gastroesophageal Reflux Disease: No - Endocrine Hx Renal Disease: No Hx End Stage Renal Disease: No Hx Cirrhosis: No Hx Liver Disease: No Hx Insulin Dependent Diabetes: No Hx Non-Insulin Dependent Diabetes: No Hx Thyroid Disease: No Hx Hypothyroidism: No Hx Hyperthyroidism: No - Hematic Hx Anemia: No Hx Sickle Cell Disease: No - Other Systems Hx Alcohol Use: Yes (6 PK BEER/ DAY, 1 BOTTLE OF WINE DAILY) Hx Substance Use: No Hx Cancer: Yes (colorectal cancer) Hx Obesity: No - Additional Comments Anesthesia Medical History Comments: pt states that he can walk up and down 2 flights of stairs without being winded. He can also walk 2 blocks without being winded. He performs all ADLs without any assistance. 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
--- NOTE | 2019-10-05 10:23 | Anesthesia Day of Surgery ---
Anesthesia Day of Surgery - Day of Surgery Patient Examined: Yes Patient H&P Reviewed: Yes Patient is NPO: Yes
[2019-10-05] MEDS ORDERED: SODIUM CHLORIDE 0.9% 1000 ML 1,000 ML ONE (10:25)
[2019-10-05] MEDS ORDERED: WATER FOR IRRIG STERILE 250 ML BOTTLE IR ONE (10:25)
[2019-10-05] MEDS ORDERED: WATER FOR IRRIG STERILE 1,000 ML BOTTLE ONE (10:28)
[2019-10-05] MEDS ORDERED: LIDOCAINE MPF (2%) 20 MG/1 ML VIAL 5 ML ONE (10:30)
[2019-10-05] MEDS ORDERED: SODIUM CHLORIDE 0.9% 1000 ML 1,000 ML IV SCH (10:30)
[2019-10-05] MEDS ORDERED: propofoL 200 MG/20 ML VIAL IV ONE ×2 (10:43)
--- NOTE | 2019-10-05 11:26 | Post Operative Note ---
Pre-op diagnosis: Hematochezia Post-op diagnosis: other (Normal colonoscopy via stoma. Induration on outside of prolapsed stoma.) Findings: 1. Indurated area, 3 cm, at 7 o'clock, on prolapsed outside of stoma, possible source of bleeding. 2. Otherwise normal visualized colonic mucosa. Procedure: Colonoscopy Anesthesia: MAC Surgeon: DARIAN BAPTISTE Estimated blood loss: none Pathology: none Condition: stable Disposition: floor (Okay to D/C home from GI standpoint. Consider discontinuing Eliquis and/or revising stoma, as outpatient. Will sign off. Thanks.)
--- NOTE | 2019-10-05 11:42 | Operative Report ---
PROCEDURE: Colonoscopy. PREOPERATIVE DIAGNOSIS: Hematochezia. POSTOPERATIVE DIAGNOSES: Prolapsed ostomy and normal colon. SEDATION: MAC by Anesthesia. HISTORY: The patient is a 54-year-old man with a history of recurrent rectal cancer who has a colostomy in place. It is prolapsed and was as of at least a year ago when he had hematochezia at that time. Hematochezia then was thought to be due to a lesion on the stoma prolapsed area itself. He was started on Eliquis in the interim and presented again with hematochezia which has now resolved. DESCRIPTION OF PROCEDURE: Indications, risks, and benefits were explained and consent was obtained. The patient was placed back on exam table and sedated. Video colonoscope was passed through the stoma after digital examination and passed with moderate difficulty to the cecum, which was identified by the ileocecal valve and the appendiceal orifice. The scope was then gradually withdrawn with close inspection of mucosa. FINDINGS: 1. Prolapsed colostomy with indurated area measuring approximately 3 cm in diameter at the 7 o'clock position. This may well be the source of his intermittent hematochezia, though no clear mucosal lesions were identified today. 2. Remainder of visualized colonic mucosa is normal appearing with no evidence of mass lesions, vascular lesions or inflammation. No bleeding source was identified. There was no evidence of old or fresh blood. The patient tolerated the procedure well without immediate complications. IMPRESSION: 1. Indurated area on prolapsed stoma -- potential source of bleeding. 2. Otherwise, normal colonoscopy. RECOMMENDATIONS: 1. Advance diet and may discharge to home from GI standpoint. 2. Consider need for Eliquis versus IVC filter, this can be determined by the patient's oncologist. This would help reduce risk of bleeding until the stoma is repaired. 3. Consider revision of stoma as outpatient. JOB# [id number] HRC/NTS
--- NOTE | 2019-10-05 13:03 | Progress Note ---
Assessment and Plan 54-year-old male with 1. GI bleed 2. Prolapsed colostomy 3. History of colon cancer 4. Parastomal hernia 5. History of DVT s/p colonoscopy 10/05/19 - induration over part of prolapsed stoma. No other findings Plan: 1. advance diet as tolerated 2. Transfuse PRBCs PRN 3. No surgical intervention at this time. Pt to follow up with Dr. Baker (his established surgeon) at [facility] for hernia repair and evaluation of prolapsed stoma/possible revision Will s/o Thank you, please call with questions. Evaluation and treatment of this patient was during the time of the national and state emergency arising from COVID19 coronavirus pandemic. Treatment and procedures performed meet the current and available best practice and guidelines for patient during the COVID pandemic. Subjective Date of service: 10/05/19 Narrative: Patient seen and examined. He has no complaints. He is status post colonoscopy. No bleeding from ostomy site reported. Objective Vital Signs - 12hr 10/05/19 10/05/19 10/05/19 01:11 01:21 01:31 Temperature Pulse Rate 77 73 73 Pulse Rate [ From Monitor] Respiratory 12 12 18 Rate Blood Pressure 117/71 117/71 117/71 O2 Sat by Pulse 97 97 96 Oximetry 10/05/19 10/05/19 10/05/19 01:41 01:51 02:00 Temperature Pulse Rate 75 85 71 Pulse Rate [ From Monitor] Respiratory 9 L 16 11 L Rate Blood Pressure 117/71 117/71 125/74 O2 Sat by Pulse 96 96 97 Oximetry 10/05/19 10/05/19 10/05/19 02:11 02:21 02:31 Temperature Pulse Rate 71 74 78 Pulse Rate [ From Monitor] Respiratory 11 L 8 L 12 Rate Blood Pressure 125/74 125/74 125/74 O2 Sat by Pulse 96 97 97 Oximetry 10/05/19 10/05/19 10/05/19 02:41 02:51 03:00 Temperature Pulse Rate 77 82 70 Pulse Rate [ From Monitor] Respiratory 14 16 14 Rate Blood Pressure 125/74 125/74 116/73 O2 Sat by Pulse 96 95 97 Oximetry 10/05/19 10/05/19 10/05/19 03:11 03:21 03:31 Temperature Pulse Rate 75 78 76 Pulse Rate [ From Monitor] Respiratory 10 L 10 L 11 L Rate Blood Pressure 116/73 116/73 116/73 O2 Sat by Pulse 96 96 97 Oximetry 10/05/19 10/05/19 10/05/19 03:41 03:51 04:00 Temperature 98.2 F Pulse Rate 74 73 72 Pulse Rate [ 70 From Monitor] Respiratory 16 16 17 Rate Blood Pressure 116/73 116/73 119/76 O2 Sat by Pulse 98 97 98 Oximetry 10/05/19 10/05/19 10/05/19 04:11 04:17 04:21 Temperature Pulse Rate 78 76 Pulse Rate [ From Monitor] Respiratory 19 12 12 Rate Blood Pressure 119/76 119/76 O2 Sat by Pulse 98 98 Oximetry 10/05/19 10/05/19 10/05/19 04:31 04:41 04:51 Temperature Pulse Rate 72 78 74 Pulse Rate [ From Monitor] Respiratory 12 13 15 Rate Blood Pressure 119/76 119/76 119/76 O2 Sat by Pulse 96 98 97 Oximetry 10/05/19 10/05/19 10/05/19 05:00 05:11 05:21 Temperature Pulse Rate 82 Pulse Rate [ From Monitor] Respiratory 15 Rate Blood Pressure 103/67 103/67 103/67 O2 Sat by Pulse 95 98 98 Oximetry 10/05/19 10/05/19 10/05/19 05:31 05:41 05:51 Temperature Pulse Rate Pulse Rate [ From Monitor] Respiratory Rate Blood Pressure 103/67 103/67 103/67 O2 Sat by Pulse 98 97 99 Oximetry 10/05/19 10/05/19 10/05/19 06:00 06:11 06:21 Temperature Pulse Rate 70 Pulse Rate [ From Monitor] Respiratory Rate Blood Pressure 125/77 125/77 125/77 O2 Sat by Pulse 96 97 97 Oximetry 10/05/19 10/05/19 10/05/19 06:31 06:41 06:51 Temperature Pulse Rate Pulse Rate [ From Monitor] Respiratory Rate Blood Pressure 125/77 125/77 125/77 O2 Sat by Pulse 96 95 96 Oximetry 10/05/19 10/05/19 10/05/19 07:00 07:11 07:21 Temperature Pulse Rate Pulse Rate [ From Monitor] Respiratory Rate Blood Pressure 113/73 113/73 113/73 O2 Sat by Pulse 96 98 98 Oximetry 10/05/19 10/05/19 10/05/19 07:31 07:41 07:51 Temperature Pulse Rate 74 74 75 Pulse Rate [ From Monitor] Respiratory 12 11 L 12 Rate Blood Pressure 113/73 113/73 113/73 O2 Sat by Pulse 97 97 100 Oximetry 10/05/19 10/05/19 10/05/19 08:00 08:01 08:11 Temperature 98.4 F Pulse Rate 74 67 Pulse Rate [ From Monitor] Respiratory 12 12 Rate Blood Pressure 116/69 116/69 O2 Sat by Pulse 100 98 Oximetry 10/05/19 10/05/19 10/05/19 08:21 08:31 08:41 Temperature Pulse Rate 73 70 72 Pulse Rate [ From Monitor] Respiratory 13 12 12 Rate Blood Pressure 116/69 116/69 116/69 O2 Sat by Pulse 99 100 99 Oximetry 10/05/19 10/05/19 10/05/19 08:51 09:00 09:11 Temperature Pulse Rate 72 70 69 Pulse Rate [ From Monitor] Respiratory 13 12 12 Rate Blood Pressure 116/69 119/72 119/72 O2 Sat by Pulse 99 98 99 Oximetry 10/05/19 10/05/19 10/05/19 09:21 09:31 09:41 Temperature Pulse Rate 76 74 72 Pulse Rate [ From Monitor] Respiratory 10 L 10 L 10 L Rate Blood Pressure 119/72 119/72 119/72 O2 Sat by Pulse 99 98 96 Oximetry 10/05/19 10/05/19 10/05/19 10:05 12:00 12:01 Temperature 97.8 F Pulse Rate 74 72 78 Pulse Rate [ From Monitor] Respiratory 12 Rate Blood Pressure 123/79 O2 Sat by Pulse 100 98 Oximetry 10/05/19 10/05/19 12:11 12:21 Temperature Pulse Rate 86 Pulse Rate [ 72 From Monitor] Respiratory 14 16 Rate Blood Pressure 122/73 O2 Sat by Pulse 97 99 Oximetry - General physical appearance Narrative Exam: General: Awake, alert, oriented x3. No apparent distress CV: S1, S2 present Respiratory: No audible wheezes Abdomen: Soft, nontender, nondistended. There is a soft and reducible ventral hernia. The ostomy mucosa is intact, prolapsed. There is no obvious bleeding. - Labs 10/05/19 04:44 10/05/19 04:44 Diabetes panel 10/05/19 Range/Units 04:44 Sodium 143 (137-145) mmol/L Potassium 3.1 L (3.6-5.0) mmol/L Chloride 107.4 H (98-107) mmol/L Carbon Dioxide 25 (22-30) mmol/L BUN 4 L (9-20) mg/dL Creatinine 0.6 L (0.8-1.5) mg/dL Glucose 97 (75-100) mg/dL Calcium 7.3 L D (8.4-10.2) mg/dL Calcium panel 10/05/19 Range/Units 04:44 Calcium 7.3 L D (8.4-10.2) mg/dL Pituitary panel 10/05/19 Range/Units 04:44 Sodium 143 (137-145) mmol/L Potassium 3.1 L (3.6-5.0) mmol/L Chloride 107.4 H (98-107) mmol/L Carbon Dioxide 25 (22-30) mmol/L BUN 4 L (9-20) mg/dL Creatinine 0.6 L (0.8-1.5) mg/dL Glucose 97 (75-100) mg/dL Calcium 7.3 L D (8.4-10.2) mg/dL Adrenal panel 10/05/19 Range/Units 04:44 Sodium 143 (137-145) mmol/L Potassium 3.1 L (3.6-5.0) mmol/L Chloride 107.4 H (98-107) mmol/L Carbon Dioxide 25 (22-30) mmol/L BUN 4 L (9-20) mg/dL Creatinine 0.6 L (0.8-1.5) mg/dL Glucose 97 (75-100) mg/dL Calcium 7.3 L D (8.4-10.2) mg/dL
--- NOTE | 2019-10-05 13:52 | Discharge Summary ---
Providers - Providers Date of Admission: 10/04/19 04:14 Attending physician: KAVON QUEVEDO MD 10/04/19 00:45 Consult to Physician [CONS] Urgent Comment: Consulting Provider: DARIAN BAPTISTE Physician Instructions: Reason For Exam: bleeding from ostomy, colon cancer 10/04/19 01:14 Consult to Physician [CONS] Urgent Comment: Consulting Provider: SAM ROMAN Physician Instructions: Reason For Exam: bleeding colostomy, prolapsed ostomy, colon ca Primary care physician: [employer] Hospitalization Reason for admission: GI bleed Condition: Stable Hospital course: 54-year-old male with known history of colorectal cancer resected in September 2016 and also on chemotherapy had a recurrence in 2018 which was noted on colonoscopy with rectal bleeding in 2018. Patient also has known history of DVT/PE, coronary artery disease status post CABG x2, hypertension. He reports today in the emergency room stating that he has been seeing blood in his colostomy bag since this morning. Patient currently on Eliquis for his history of PE/DVT. He took his last Eliquis earlier this morning. Patient has been receiving chemotherapy every other week since 2018 with last chemo about 2 weeks ago. Patient's oncologist is Dr. Mercer currently affiliated with [facility]. Patient has denied any nausea or vomiting, no fever or chills, no chest pain or shortness of breath, no headache or dizziness. Review of patient's record indicates a visit about a year ago in the ER when he developed a prolapsed ostomy and parastomal hernia with a bleed. Pressure was applied to the ostomy at that time and bleeding subsided. Work-up in the emergency room today including CT of the abdomen shows a chronic ventral hernia without any other significant finding. Patient was seen and evaluated by GI and surgery with the following recommendation 1. GI bleed 2. Prolapsed colostomy 3. History of colon cancer 4. Parastomal hernia 5. History of DVT s/p colonoscopy 10/05/19 - induration over part of prolapsed stoma. No other findings Plan: 1. advance diet as tolerated 2. Transfuse PRBCs PRN 3. No surgical intervention at this time. Pt to follow up with Dr. Baker (his established surgeon) at [facility] for hernia repair and evaluation of prolapsed stoma/possible revision Will s/o Thank you, please call with questions. Evaluation and treatment of this patient was during the time of the national and state emergency arising from COVID19 coronavirus pandemic. Treatment and procedures performed meet the current and available best practice and guidelines for patient during the COVID pandemic. Discharge diagnosis 1. GI bleed with acute blood loss anemia 2. Prolapsed colostomy 3. History of colon cancer 4. Parastomal hernia 5. History of DVT Disposition: - TO HOME OR SELFCARE Time spent for discharge: 35 minutes Core Measure Documentation - Palliative Care Palliative Care/ Comfort Measures: Not Applicable - Core Measures Any of the following diagnoses?: none Exam - Physical Exam Narrative exam: VITAL SIGNS: Reviewed. GENERAL: The patient appears normally developed, Vital signs as documented. HEAD: No signs of head trauma. EYES: Pupils are equal. Extraocular motions intact. EARS: Hearing grossly intact. MOUTH: Oropharynx is normal. NECK: No adenopathy, no JVD. CHEST: Chest with clear breath sounds bilaterally. No wheezes, rales, or rhonchi. CARDIAC: Regular rate and rhythm. S1 and S2, without murmurs, gallops, or rubs. VASCULAR: No Edema. Peripheral pulses normal and equal in all extremities. ABDOMEN: soft, non-tender, hernia (ventral, reducible), other (L sided colostomy, with intestinal prolapse. Bag has nuggets of brown stool, with liquid dark red blood as well.) MUSCULOSKELETAL: Good range of motion of all major joints. Extremities without clubbing, cyanosis or edema. NEUROLOGIC EXAM: Alert and oriented x 3 No focal sensory or strength deficits. Speech normal. Follows commands. PSYCHIATRIC: Mood normal. SKIN: detial exam as documented in skin assessment - Constitutional Vitals: Temp Pulse Resp BP Pulse Ox 97.7 F 72 16 122/73 99 10/05/19 11:16 10/05/19 12:21 10/05/19 12:21 10/05/19 12:11 10/05/19 12:21 Plan Activity: advance as tolerated, fall precautions Special Instructions: record daily weights, record daily BP diary Additional Instructions: Follow with Dr Mercer based on prior arranged plans. Continue all home meds including Eliquis Follow up with: SHAMA LEBLANC MD [Primary Care Provider] - 3-5 Days CIELO MERCER MD [Staff Physician] - 10/06/19
[2019-10-05 14:10] VITALS: BP 126/74
[2019-10-05 14:49] LABS: Hematocrit 26.1 % (35.5-45.6); Hemoglobin 8.6 gm/dl (11.8-15.2)
== END 2019-10-05 15:25 | disposition home or self-care (01) | DRG 394 ==
LOC: ED 20:25 → IMCU 10-04 04:14
PROVIDERS: ADMIT Internal Medicine Geriatric Medicine; ATTEND Internal Medicine
PROC: 0DJD8ZZ Inspection of Lower Intestinal Tract, Via Natural or Artificial Opening Endoscopic (ICD-10-PCS; principal; 2019-10-05)
DX: K94.09 Other complications of colostomy (principal); K92.2 Gastrointestinal hemorrhage, unspecified; D62 Acute posthemorrhagic anemia; I10 Essential (primary) hypertension; I25.10 Atherosclerotic heart disease of native coronary artery without angina pectoris; K43.5 Parastomal hernia without obstruction or gangrene; F17.210 Nicotine dependence, cigarettes, uncomplicated; K43.9 Ventral hernia without obstruction or gangrene; Y83.9 Surgical procedure, unspecified as the cause of abnormal reaction of the patient, or of later complication, without mention of misadventure at the time of the procedure; Z85.048 Personal history of other malignant neoplasm of rectum, rectosigmoid junction, and anus; Z86.718 Personal history of other venous thrombosis and embolism; Z86.711 Personal history of pulmonary embolism; Z95.5 Presence of coronary angioplasty implant and graft; Z92.21 Personal history of antineoplastic chemotherapy; I25.2 Old myocardial infarction; Z79.01 Long term (current) use of anticoagulants; Z91.018 Allergy to other foods
CPT/HCPCS: 36415; 74177; 80048; 80053; 85007; 85014; 85018; 85025; 85610; 85730; 86850; 86900; 86901; G0378; C9113; J2270; J2405; J2704; J7030; Q9967

== ENCOUNTER 2020-03-24 07:57 | Outpatient (CLI) | payer MEDICAID | END 2020-03-24 07:58 | disposition home or self-care (01) | LOC: PET 07:57 | PROVIDERS: ATTEND Internal Medicine Hematology | DX: C18.9 Malignant neoplasm of colon, unspecified (principal); C90.20 Extramedullary plasmacytoma not having achieved remission; C90.00 Multiple myeloma not having achieved remission; D45 Polycythemia vera | CPT/HCPCS: 82962; A9552 ==

== ENCOUNTER 2021-03-10 20:13 | Observation (INO) | payer MEDICAID ==
[2021-03-10] MEDS ORDERED: ONDANSETRON 4 MG/2 ML INJ IV ONE (20:53)
[2021-03-10] MEDS ORDERED: HYDROmorphone 1 MG/1 ML INJ IV ONE (20:53)
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
[2021-03-10 21:18] LABS: Basophils % (Auto) 0.3 % (0.0-1.8); Eosinophils # (Auto) 0.1 K/mm3 (0.0-0.4); Eosinophils % (Auto) 1.3 % (0.0-4.3); Hemoglobin 12.1 gm/dl (11.8-15.2); Lymphocytes # (Auto) 2.2 K/mm3 (1.2-5.4); Lymphocytes % (Auto) 37.7 % (13.4-35.0); Mean Corpuscular HGB Conc 35 % (32-34); Mean Corpuscular Volume 98 fl (84-94); Monocytes # (Auto) 0.3 K/mm3 (0.0-0.8); Monocytes % (Auto) 4.8 % (0.0-7.3); Platelet Count 168 K/mm3 (140-440); Red Blood Count 3.56 M/mm3 (3.65-5.03); Red Cell Distribution Width 14.7 % (13.2-15.2)
[2021-03-10 21:29] LABS: INR 0.97 (0.87-1.13)
[2021-03-10 21:30] LABS: Partial Thromboplastin Time 30.8 Sec. (24.2-36.6)
[2021-03-10 21:34] LABS: Alanine Aminotransferase 49 units/L (7-56); Albumin 3.7 g/dL (3.9-5); Blood Urea Nitrogen 8 mg/dL (9-20); Calcium 8.5 mg/dL (8.4-10.2); Hemolysis Index 27
[2021-03-10 21:40] LABS: BUN/Creatinine Ratio 16
--- NOTE | 2021-03-10 23:03 | Cat Scan Report ---
CT angio abdomen pelvis INDICATION / CLINICAL INFORMATION: GI BLEED/COLOSTOMY, COLON CA, BACK PAIN 100 ml omni 350. TECHNIQUE: Axial coronal and sagittal images All CT scans at this location are performed using CT dose reduction for ALARA by means of automated exposure control. COMPARISON: None available. FINDINGS: Mild increased densities are seen in the lower lungs right greater than left. Chronic interstitial ch anges noted. Lower thoracic aorta appears normal. The celiac branches appear normal. SMA is patent. I MA appears normal. Urinary bladder is distended. Bilateral intra-axial iliac vessels are patent. Femo ral vessels appear patent. Liver is enlarged with fatty infiltration. Spleen, adrenal glands, pancreas, gallbladder appear sneha l. Postsurgical change from prior ileostomy. Prior ventral abdominal wall hernia repair. The colon lo ops may be mildly thickened however there is incomplete distention. No focal inflammatory change. No extravasation of contrast IMPRESSION: 1. Hepatomegaly with diffuse fatty infiltration. 2. Extensive postoperative change in the bowel loops with ileostomy. There may be some thickening of the colon loops throughout. Given patient's history of colon cancer follow-up with GI. No focal infla mmatory change. 3. No extravasation of contrast. Vessels are patent. 4. Right lower lung infiltrate. Signer Name: Tomás Duron MD Signed: 03/10/2021 10:59 PM Workstation Name: [id number]
[2021-03-10] MEDS ORDERED: cefTRIAXone/NS 1 GM/50 ML 1 GM/50 ML BAG IV ONE (23:25)
[2021-03-10] MEDS ORDERED: AZITHROMYCIN/NS 500 MG/250 ML 500 MG/250 ML BAG IV ONE (23:25)
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
[2021-03-11] MEDS ORDERED: ONDANSETRON 4 MG/2 ML INJ IV PRN (00:23)
[2021-03-11] MEDS ORDERED: METOCLOPRAMIDE 10 MG/2 ML INJ IV PRN (00:23)
[2021-03-11] MEDS ORDERED: ALUM-MAG HYDROXIDE-SIMETHICONE 200-200-20MG/5ML ORAL LIQD 30 ML PO PRN (00:23)
[2021-03-11] MEDS ORDERED: MORPHINE 4 MG/1 ML INJ IV PRN (00:23)
[2021-03-11] MEDS ORDERED: oxyCODONE /ACETAMINOPHEN 5-325MG TAB PO PRN (00:23)
[2021-03-11] MEDS ORDERED: ACETAMINOPHEN 325 MG TAB PO PRN (00:23)
[2021-03-11] MEDS ORDERED: SENNOSIDES 8.6 MG TAB PO PRN (00:23)
[2021-03-11] MEDS ORDERED: POTASSIUM CHLORIDE 20 MEQ 20 MEQ/100 ML BAG IV ONE (00:30)
[2021-03-11] MEDS ORDERED: POTASSIUM CHLORIDE 10 MEQ 10 MEQ/100 ML BAG IV ONE ×2 (01:09→01:11)
[2021-03-11] MEDS ORDERED: SODIUM CHLORIDE 0.9% 1000 ML 1,000 ML ONE (02:58)
--- NOTE | 2021-03-11 08:19 | Progress Note ---
Assessment and Plan Assessment and plan: Hospital course to date 03/11: Patient is currently asymptomatic and hemodynamically stable and does not appear to have active bleeding from ostomy bag. Hemoglobin is stable. We will continue supportive management and await gastroenterology recommendations. Assessment and plan (2) GI bleed Current Visit: Yes Status: Acute Plan to address problem: GI has been consulted Monitor H&Hlast H&H in ED 12.1 Hemodynamically stable Currently on IV fluids (1) Colon cancer Current Visit: Yes Status: Acute Plan to address problem: History of colon cancer with colostomy Patient is presently on chemotherapyevery 2 weeks (3) Hx of pulmonary embolus Current Visit: Yes Status: Acute Plan to address problem: Patient has a history of pulmonary embolism and on Eliquis Hold for now due to bleeding (4) Hypokalemia Current Visit: Yes Status: Acute Plan to address problem: Replace potassium Monitor potassium level Replace as needed (5) Fatty liver Current Visit: No Status: Acute Plan to address problem: Unknown cause Discussed lifestyle modification Weight management and healthy diet Avoid fried food and animal fat Monitor liver enzymes (6) Pneumonia Current Visit: No Status: Acute Plan to address problem: Patient is on room air Start empiric antibiotics Serial checks x-ray We will consult partnership development manager if needed (7) DVT prophylaxis Current Visit: Yes Status: Acute Plan to address problem: SCD History Interval history: Patient had no acute complaints on encounter this morning. He states that the reason he came to the hospital was because he noticed numerous dark blood clots in his ostomy bag. This morning he states that the number of clots has reduced. He states that he is not followed up with a GI doctor in some time now. His ostomy bag is monitored and managed by his oncologist. He states he is still actively undergoing chemotherapy for his colon cancer. On my encounter he denied any chest pain, shortness of breath, dizziness. The ostomy bag appeared to be filled with dark brown feculent matter and some old blood clots. Hospitalist Physical - Physical exam Narrative exam: Physical Exam: VITAL SIGNS: Reviewed. GENERAL: The patient appears normally developed, Vital signs as documented. HEAD: No signs of head trauma. EYES: Pupils are equal. Extraocular motions intact. EARS: Hearing grossly intact. MOUTH: Oropharynx is normal. NECK: No adenopathy, no JVD. CHEST: Chest with clear breath sounds bilaterally. No wheezes, rales, or rhonchi. CARDIAC: Regular rate and rhythm. S1 and S2, without murmurs, gallops, or rubs. VASCULAR: No Edema. Peripheral pulses normal and equal in all extremities. ABDOMEN: Soft, non tender and non distended. No rebound or guarding, and no masses palpated. Ostomy bag in place. Dark brown feculent matter noted with some old blood clots. MUSCULOSKELETAL: Good range of motion of all major joints. Extremities without clubbing, cyanosis or edema. NEUROLOGIC EXAM: Alert and oriented x4. No focal sensory or strength deficits. PSYCHIATRIC: Mood normal. SKIN: detail exam as documented in skin assessment - Constitutional Vitals: Temp Pulse Resp BP Pulse Ox 97.7 F 80 18 115/67 97 03/11/21 07:33 03/11/21 07:33 03/11/21 07:33 03/11/21 07:33 03/11/21 07:33 General appearance: Present: mild distress, well-nourished Results - Labs CBC & Chem 7: 03/10/21 21:04 03/11/21 07:23 Labs: Laboratory Last Values WBC 6.0 K/mm3 (4.5-11.0) 03/10/21 21:04 RBC 3.56 M/mm3 (3.65-5.03) L 03/10/21 21:04 Hgb 12.1 gm/dl (11.8-15.2) 03/10/21 21:04 Hct 35.0 % (35.5-45.6) L 03/10/21 21:04 MCV 98 fl (84-94) H 03/10/21 21:04 MCH 34 pg (28-32) H 03/10/21 21:04 MCHC 35 % (32-34) H 03/10/21 21:04 RDW 14.7 % (13.2-15.2) 03/10/21 21:04 Plt Count 168 K/mm3 (140-440) 03/10/21 21:04 Lymph % (Auto) 37.7 % (13.4-35.0) H 03/10/21 21:04 [place] % (Auto) 4.8 % (0.0-7.3) 03/10/21 21:04 Eos % (Auto) 1.3 % (0.0-4.3) 03/10/21 21:04 Baso % (Auto) 0.3 % (0.0-1.8) 03/10/21 21:04 Lymph # (Auto) 2.2 K/mm3 (1.2-5.4) 03/10/21 21:04 [place] # (Auto) 0.3 K/mm3 (0.0-0.8) 03/10/21 21:04 Eos # (Auto) 0.1 K/mm3 (0.0-0.4) 03/10/21 21:04 Baso # (Auto) 0.0 K/mm3 (0.0-0.1) 03/10/21 21:04 Seg Neutrophils % 55.9 % (40.0-70.0) 03/10/21 21:04 Seg Neutrophils # 3.3 K/mm3 (1.8-7.7) 03/10/21 21:04 PT 14.0 Sec. (12.2-14.9) 03/10/21 21:04 INR 0.97 (0.87-1.13) 03/10/21 21:04 APTT 30.8 Sec. (24.2-36.6) 03/10/21 21:04 Sodium 140 mmol/L (137-145) 03/10/21 21:04 Potassium 3.1 mmol/L (3.6-5.0) L 03/10/21 21:04 Chloride 104.1 mmol/L (98-107) 03/10/21 21:04 Carbon Dioxide 24 mmol/L (22-30) 03/10/21 21:04 Anion Gap 15 mmol/L 03/10/21 21:04 BUN 8 mg/dL (9-20) L 03/10/21 21:04 Creatinine 0.5 mg/dL (0.8-1.3) L 03/10/21 21:04 Estimated GFR > 60 ml/min 03/10/21 21:04 BUN/Creatinine Ratio 16 % 03/10/21 21:04 Glucose 99 mg/dL (75-100) 03/10/21 21:04 Hemoglobin A1c 5.3 % (4-6) 03/11/21 00:59 Calcium 8.5 mg/dL (8.4-10.2) 03/10/21 21:04 Total Bilirubin 0.30 mg/dL (0.1-1.2) 03/10/21 21:04 AST 102 units/L (5-40) H 03/10/21 21:04 ALT 49 units/L (7-56) 03/10/21 21:04 Alkaline Phosphatase 180 units/L (35-129) H 03/10/21 21:04 Total Protein 6.7 g/dL (6.3-8.2) 03/10/21 21:04 Albumin 3.7 g/dL (3.9-5) L 03/10/21 21:04 Albumin/Globulin Ratio 1.2 % 03/10/21 21:04 Blood Type O POSITIVE 03/10/21 21:04 Antibody Screen Negative 03/10/21 21:04 Microbiology: Microbiology 03/11/21 00:54 Peripheral/Venous Blood Culture - Preliminary Culture in Progress 03/11/21 00:59 Peripheral/Venous Blood Culture - Preliminary Culture in Progress Zepeda/IV: Voiding Method Urinal Active Medications - Current Medications Current Medications: Generic Name Dose Route Start Last Admin Trade Name Freq PRN Reason Stop Dose Admin Acetaminophen 650 mg 03/11/21 00:23 Acetaminophen 325 Mg Tab PO Q4H PRN Pain MILD(1-3)/Fever >100.5/HOU Al Hydrox/Mg Hydrox/Simethicone 30 ml 03/11/21 00:23 Alum-Mag Hydroxide-Simethicone [id number]/5ml Oral Liqd 30 Ml PO Q4H PRN Indigestion Azithromycin 500 mg in 250 mls @ 250 mls/hr 03/11/21 22:00 Zithromax/Ns IV Q24H [facility] Ceftriaxone Sodium 1 gm in 50 mls @ 100 mls/hr 03/11/21 22:00 Rocephin/Ns 1 Gm/50 Ml IV Q24H [facility] Protocol Metoclopramide HCl 10 mg 03/11/21 00:23 Metoclopramide 10 Mg/2 Ml Inj IV Q6H PRN Nausea And Vomiting Morphine Sulfate 2 mg 03/11/21 00:23 Morphine 2 Mg/1 Ml Inj IV Q4H PRN Pain, Moderate (4-6) Morphine Sulfate 4 mg 03/11/21 00:23 Morphine 4 Mg/1 Ml Inj IV Q4H PRN Pain , Severe (7-10) Ondansetron HCl 4 mg 03/11/21 00:23 Ondansetron 4 Mg/2 Ml Inj IV Q8H PRN Nausea And Vomiting Oxycodone/Acetaminophen 1 tab 03/11/21 00:23 Oxycodone /Acetaminophen 5-325mg Tab PO Q6H PRN Pain, Moderate (4-6) Senna 8.6 mg 03/11/21 00:23 Sennosides 8.6 Mg Tab PO Q12HR PRN Constipation Sodium Chloride 10 ml 03/11/21 10:00 Sodium Chloride 0.9% 10 Ml Flush Syringe IV BID PACO Sodium Chloride 10 ml 03/11/21 00:23 Sodium Chloride 0.9% 10 Ml Flush Syringe IV PRN PRN LINE FLUSH
[2021-03-11 08:41] LABS: Blood Urea Nitrogen 7 mg/dL (9-20); Calcium 7.7 mg/dL (8.4-10.2); Hemolysis Index 7
[2021-03-11 08:47] LABS: BUN/Creatinine Ratio 14
[2021-03-11] MEDS ORDERED: POTASSIUM CHLORIDE ER 20 MEQ TAB PO ONE (10:00)
[2021-03-11] MEDS: MORPHINE 2 MG/1 ML INJ IV PRN ×2 (12:30→16:54)
--- NOTE | 2021-03-11 15:00 | Consultation ---
History of Present Illness - Reason for Consult Consult date: 03/11/21 Hematochezia Requesting physician: AMARA BAZAN - History of Present Illness Mr Leal is 55 yo BM with a hx of recurrent rectal cancer resected in 10/17/2017 with APR with colostomy, and chemoXRT. He presented to the emergency room after developing onset of bright red bleeding in his colostomy bag. He was driving and noted that his stoma bag got full and burst, with blood and clot in it. He had no preceding subsequent bleed. No melena. No abd pain or hard stools. He had a similar episode in September of 2018 and September of 2019, and was seen by me both times. In 2018, he described a jet of blood that streamed out of a point on his mucosal surface and was consistent with a mucosal lesion probably attributed to prolapse of the colostomy. Revision was recommended but was decided against. At that time, patient had his Eliquis stopped, but it was apparently resumed in the interim, and he remains on it. In 2019, he had hematochezia with his bag filling 4 times with blood, and Hgb between 8-9, and he underwent a colonoscopy that showed induration in the prolapsing mucosa of the colon, but was otherwise negative. Patient denies any abdominal pain nausea, vomiting, chest pain, shortness of breath, lightheadedness, or dizziness. He denies fevers, chills, sweats. He denies weight loss. As regards his cancer, his initial surgery was in 09/2016, and then he had recurrence noted on colonoscopy with rectal bleeding in 09/2017. He states he has chemorx by Dr. Ponce. He also has a hx of MM, and a hx of DVT and PE. He was restarted on Eliquis by Dr. Ponce. Pt also has ventral abd hernia with pain at times. Meds reviewed. Past History Past Medical History: cancer (Colon - sees Dr. Kadi Ponce), hypertension, hyperlipidemia, other (Colon canceron chemotherapy) Past Surgical History: bowel surgery (Colon resection with colostomy), Other (back sugery) Social history: smoking, alcohol abuse, full code. denies: prescription drug abuse, IV drug use Family history: no significant family history Medications and Allergies Allergies Allergy/AdvReac Type Severity Reaction Status Date / Time garlic Allergy Swelling Verified 03/11/21 00:51 Home Medications Medication Instructions Recorded Confirmed Last Taken Type No Known Home Medications [No 10/04/19 10/04/19 Unknown History Reported Home Medications] Active Meds: Active Medications Acetaminophen (Acetaminophen 325 Mg Tab) 650 mg PO Q4H PRN PRN Reason: Pain MILD(1-3)/Fever >100.5/HOU Al Hydrox/Mg Hydrox/Simethicone (Alum-Mag Hydroxide-Simethicone [phone]/5ml Oral Liqd 30 Ml) 30 ml PO Q4H PRN PRN Reason: Indigestion Azithromycin (Zithromax/Ns) 500 mg in 250 mls @ 250 mls/hr IV Q24H PACO Ceftriaxone Sodium (Rocephin/Ns 2 Gm/100 Ml) 2 gm in 100 mls @ 200 mls/hr IV Q24H PACO; Protocol Metoclopramide HCl (Metoclopramide 10 Mg/2 Ml Inj) 10 mg IV Q6H PRN PRN Reason: Nausea And Vomiting Morphine Sulfate (Morphine 2 Mg/1 Ml Inj) 2 mg IV Q4H PRN PRN Reason: Pain, Moderate (4-6) Last Admin: 03/11/21 12:30 Dose: 2 mg Documented by: Morphine Sulfate (Morphine 4 Mg/1 Ml Inj) 4 mg IV Q4H PRN PRN Reason: Pain , Severe (7-10) Ondansetron HCl (Ondansetron 4 Mg/2 Ml Inj) 4 mg IV Q8H PRN PRN Reason: Nausea And Vomiting Oxycodone/Acetaminophen (Oxycodone /Acetaminophen 5-325mg Tab) 1 tab PO Q6H PRN PRN Reason: Pain, Moderate (4-6) Senna (Sennosides 8.6 Mg Tab) 8.6 mg PO Q12HR PRN PRN Reason: Constipation Sodium Chloride (Sodium Chloride 0.9% 10 Ml Flush Syringe) 10 ml IV BID PACO Last Admin: 03/11/21 10:26 Dose: 10 ml Documented by: Sodium Chloride (Sodium Chloride 0.9% 10 Ml Flush Syringe) 10 ml IV PRN PRN PRN Reason: LINE FLUSH Review of Systems All systems: negative (as per HPI) Exam - Constitutional Vitals: Temp Pulse Resp BP Pulse Ox 98.0 F 79 18 119/73 97 03/11/21 12:00 03/11/21 12:00 03/11/21 12:34 03/11/21 12:00 03/11/21 12:34 General appearance: Present: no acute distress - EENT Eyes: Present: PERRL, EOM intact ENT: hearing intact - Respiratory Respiratory effort: normal Respiratory: bilateral: CTA - Cardiovascular Rhythm: regular Heart Sounds: Present: S1 & S2 - Extremities Extremities: No edema - Abdominal General gastrointestinal: Present: soft, non-tender, other (LLQ colostomy, with prolapsed mucosa, no blood in bag, and brown liquid stool noted.) Results - Labs CBC & Chem 7: 03/10/21 21:04 03/11/21 07:23 Labs: Abnormal lab results 03/10/21 03/10/21 03/11/21 Range/Units 21:04 21:04 07:23 RBC 3.56 L (3.65-5.03) M/mm3 Hct 35.0 L (35.5-45.6) % MCV 98 H (84-94) fl MCH 34 H (28-32) pg MCHC 35 H (32-34) % Lymph % (Auto) 37.7 H (13.4-35.0) % Potassium 3.1 L 3.3 L (3.6-5.0) mmol/L BUN 8 L 7 L (9-20) mg/dL Creatinine 0.5 L 0.5 L (0.8-1.3) mg/dL Calcium 7.7 L (8.4-10.2) mg/dL AST 102 H (5-40) units/L Alkaline Phosphatase 180 H (35-129) units/L Albumin 3.7 L (3.9-5) g/dL Assessment and Plan 1. Hematochezia -single episode. Consistent with bleeding from prolapsed mucosal site as on the prior 2 episodes. Only one episode of bleeding and no further blood noted. Patient is otherwise unremarkable. -Recheck hemoglobin and if stable, may discharge to home as no colonoscopy is anticipated this admission -If possible, stopping Eliquis would be ideal since that would preclude or reduce episodes of bleeding in the future. However, given his history of pulmonary embolism in the past, I would defer that decision to his oncologist, Dr. Ponce. 2. History of colon cancerpatient still undergoing chemotherapy with Dr. Aviva Ponce. No further GI recommendations. Will sign off. Thanks
--- NOTE | 2021-03-11 15:06 | Discharge Summary ---
Providers - Providers Date of Admission: 03/11/21 02:01 Date of discharge: 03/11/21 Attending physician: LYNN ALDRIDGE MD 03/10/21 23:24 Consult to Physician [CONS] Urgent Comment: Consulting Provider: DARIAN HEATON Physician Instructions: Reason For Exam: bleeding from colostomy stoma Primary care physician: [facility], Hospitalization Reason for admission: bleeding from ostomy Condition: Stable Hospital course: Hospital course to date 03/11: Patient is currently asymptomatic and hemodynamically stable and does not appear to have active bleeding from ostomy bag. Hemoglobin is stable. We will continue supportive management and await gastroenterology recommendations. Gastroenterology evaluated the patient, believes bleeding from prolapsed mucosal site which is comparable to prior 2 episodes of bleeding. Does not beleive colonoscopy is necessary this admission and recommended recheck hemoglobin and discharge. Regarding anticoagulation, patient should have eliquis re-evaluated by manufacturing planner, Dr. Mercer who is treating for pulmonary embolism. Patient will be discharged today if repeat hemoglobin is stable with recommendation to follow up with Dr Mercer (hematology oncology) and Dr Heaton (GI) in 1 week. Assessment and plan (2) GI bleed Current Visit: Yes Status: Acute Plan to address problem: GI has been consulted Monitor H&Hlast H&H in ED 12.1 Hemodynamically stable Currently on IV fluids (1) Colon cancer Current Visit: Yes Status: Acute Plan to address problem: History of colon cancer with colostomy Patient is presently on chemotherapyevery 2 weeks (3) Hx of pulmonary embolus Current Visit: Yes Status: Acute Plan to address problem: Patient has a history of pulmonary embolism and on Eliquis Hold for now due to bleeding (4) Hypokalemia Current Visit: Yes Status: Acute Plan to address problem: Replace potassium Monitor potassium level Replace as needed (5) Fatty liver Current Visit: No Status: Acute Plan to address problem: Unknown cause Discussed lifestyle modification Weight management and healthy diet Avoid fried food and animal fat Monitor liver enzymes (6) Pneumonia Current Visit: No Status: Acute Plan to address problem: Patient is on room air Start empiric antibiotics Serial checks x-ray We will consult barrel rib matting machine operator if needed (7) DVT prophylaxis Current Visit: Yes Status: Acute Plan to address problem: SCD Disposition: HOME / SELF CARE / HOMELESS Final Discharge Diagnosis (Prints w/discharge instructions): Ostomy complication Time spent for discharge: 35 - Discharge Diagnoses (1) Colon cancer Status: Acute (2) Hx of pulmonary embolus Status: Acute (3) Hypokalemia Status: Acute (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 GENERAL: The patient appears normally developed, Vital signs as documented. HEAD: No signs of head trauma. EYES: Pupils are equal. Extraocular motions intact. EARS: Hearing grossly intact. MOUTH: Oropharynx is normal. NECK: No adenopathy, no JVD. CHEST: Chest with clear breath sounds bilaterally. No wheezes, rales, or rhonchi. CARDIAC: Regular rate and rhythm. S1 and S2, without murmurs, gallops, or rubs. VASCULAR: No Edema. Peripheral pulses normal and equal in all extremities. ABDOMEN: Soft, non tender and non distended. No rebound or guarding, and no masses palpated. Ostomy bag in place. Dark brown feculent matter noted with some old blood clots. MUSCULOSKELETAL: Good range of motion of all major joints. Extremities without clubbing, cyanosis or edema. NEUROLOGIC EXAM: Alert and oriented x4. No focal sensory or strength deficits. PSYCHIATRIC: Mood normal. SKIN: detail exam as documented in skin assessment - Constitutional Vitals: Temp Pulse Resp BP Pulse Ox 98.0 F 79 18 119/73 97 03/11/21 12:00 03/11/21 12:00 03/11/21 12:34 03/11/21 12:00 03/11/21 12:34 Plan Follow up with: DARIAN HEATON MD [Staff Physician] - 7 Days PARRISH MARTE MD [Primary Care Provider] - 7 Days CIELO MERCER MD [Staff Physician] - 7 Days
[2021-03-11 15:41] VITALS: BP 114/65
[2021-03-11 15:56] LABS: Hematocrit 30.2 % (35.5-45.6); Hemoglobin 10.2 gm/dl (11.8-15.2)
[2021-03-11] MEDS ORDERED: cefTRIAXone/NS 2 GM/100 ML 2 GM/100 ML BAG IV SCH (22:00)
[2021-03-11] MEDS ORDERED: cefTRIAXone/NS 1 GM/50 ML 1 GM/50 ML BAG IV SCH (22:00)
[2021-03-11] MEDS ORDERED: AZITHROMYCIN/NS 500 MG/250 ML 500 MG/250 ML BAG IV SCH (22:00)
== END 2021-03-11 19:26 | disposition home or self-care (01) ==
LOC: ED 20:13 → INTOOBSV 03-11 02:01 → 4A 03-11 02:01
PROVIDERS: ADMIT Hospitalist; ATTEND Internal Medicine
DX: K94.01 Colostomy hemorrhage (principal); K92.2 Gastrointestinal hemorrhage, unspecified; C18.9 Malignant neoplasm of colon, unspecified; E87.6 Hypokalemia; K76.0 Fatty (change of) liver, not elsewhere classified; J18.9 Pneumonia, unspecified organism; K92.1 Melena; I10 Essential (primary) hypertension; E78.5 Hyperlipidemia, unspecified; Z86.711 Personal history of pulmonary embolism; Z79.899 Other long term (current) drug therapy; Z98.890 Other specified postprocedural states; Z95.1 Presence of aortocoronary bypass graft
CPT/HCPCS: 36415; 74174; 80048; 80053; 83036; 85014; 85018; 85025; 85610; 85730; 86850; 86900; 86901; 87040; 96365; 96366; 96367; 96368; 96375; 96376; 99285; G0378; J0456; J0696; J1170; J2270; J2405; J3480; J7030; Q9967

== ENCOUNTER 2021-11-03 13:05 | Outpatient (CLI) | payer MEDICAID ==
--- NOTE | 2021-11-03 17:47 | Cat Scan Report ---
CT CHEST, ABDOMEN, AND PELVIS WITH IV CONTRAST INDICATION / CLINICAL INFORMATION: COLON CANCER C90.20. TECHNIQUE: Axial CT images were obtained through the chest, abdomen, and pelvis after IV contrast. All CT scans at this location are performed using CT dose reduction for ALARA by means of automated exposure contr ol. COMPARISON: 03/27/2019 FINDINGS: CHEST: Emphysematous changes seen within the lungs no focal consolidation pleural effusion. No domina nt nodule or mass is seen. Some chronic interstitial change within the lungs. Coronary artery disease is noted. Heart size appears normal. Small mediastinal nodes without dominant adenopathy ABDOMEN/PELVIS: The liver is enlarged with fatty infiltration. Spleen, adrenal glands, pancreas, gall bladder appear normal. Ostial left lower abdomen with herniation of fat. Urinary bladder wall is sylvester edly thickened. No dominant adenopathy is seen in the mesentery or abdomen. Remaining colon loops in the right colon and be minimally thickened however no focal inflammatory change. Kidneys appear sneha l. Small lucent lesions are seen throughout spine which appears similar to prior exam. SKELETAL SYSTEM: No significant abnormality. IMPRESSION: Diffuse bladder wall thickening. Clinical correlation is recommended. Otherwise no significant interv al change. Please see above. Signer Name: Tomás Duron MD Signed: 11/03/2021 5:42 PM Workstation Name: [id number]
== END 2021-11-03 13:06 | disposition home or self-care (01) ==
LOC: CT 13:05
PROVIDERS: ATTEND Internal Medicine Hematology
DX: C90.20 Extramedullary plasmacytoma not having achieved remission (principal); C90.00 Multiple myeloma not having achieved remission; C18.9 Malignant neoplasm of colon, unspecified; D45 Polycythemia vera; K76.0 Fatty (change of) liver, not elsewhere classified; R16.0 Hepatomegaly, not elsewhere classified; J43.9 Emphysema, unspecified; G89.3 Neoplasm related pain (acute) (chronic); K92.2 Gastrointestinal hemorrhage, unspecified; D50.8 Other iron deficiency anemias; K46.9 Unspecified abdominal hernia without obstruction or gangrene; L70.9 Acne, unspecified; D70.9 Neutropenia, unspecified; E86.1 Hypovolemia; K90.49 Malabsorption due to intolerance, not elsewhere classified; I10 Essential (primary) hypertension; Z86.39 Personal history of other endocrine, nutritional and metabolic disease
CPT/HCPCS: 71260; 74177; Q9967